=== PATIENT | male | born 1955 | race Caucasian/White ===

== ENCOUNTER 2018-06-08 09:05 | Inpatient (IN) | payer MEDICAID, SELFPAY ==
[2018-06-08] VITALS (11 sets, daily range): BP systolic 96–148; BP diastolic 43–84; PULSE 50–58; RESP 7–19; TEMP 36.4–36.6; O2SAT 94–100; BMI 37.5
--- NOTE | 2018-06-08 09:33 | DI.RAD.S_ITS ---
PROCEDURE: XR CHEST 1V INDICATIONS: chest pain TECHNIQUE: One view of the chest was acquired. COMPARISON: [facility], RG, XR CXR 2V, 01/09/2005, 7:47. [facility], CR, CHEST 1 VIEW, 02/27/2017, 14:52. FINDINGS: Surgical changes and devices: Post CABG changes are seen. Lungs and pleura: An incomplete inspiratory result is noted, causing a crowded appearance to the lung markings. No focal infiltrates are seen. No pneumothorax or significant pleural effusions are seen. Mediastinum: Mediastinal contours appear normal. Heart size is normal. Bones and chest wall: No suspicious bony lesions. Age-appropriate bony degenerative changes are seen. Splenic calcification is again seen. IMPRESSION: Limited portable chest examination, without a significant cardiopulmonary abnormality identified. Postoperative and degenerative changes are seen. Dictated by: Arthur Moreno M.D. on 06/08/2018 at 9:11 Approved by: Arthur Moreno M.D. on 06/08/2018 at 9:12
[2018-06-08 09:40] LABS: Add Manual Diff / Slide Review NO; Basophils Absolute Auto 100 /uL (0-100); Basophils Percent Auto 0.8 % (0-2); Eosinophils Absolute Auto 400 /uL (0-450); Hematocrit 53.2 % (41-53); Hemoglobin 17.8 g/dL (13.5-17.5); Lymphocytes Absolute Auto 4000 /uL (1100-4500); Lymphocytes Percent Auto 38.3 % (25-40); Mean Corpuscular HGB Conc 33.4 % (30-36); Mean Corpuscular Hemoglobin 29.3 PG (26-34); Mean Corpuscular Volume 87.7 fL (80-100); Monocytes Absolute Auto 1400 /uL (0-900); Monocytes Percent Auto 13.4 % (3-14); Neutrophils Absolute Auto 4600 /uL (1500-7000); Neutrophils Percent Auto 43.5 % (50-75); Platelet Count 154 X10^3/uL (150-400); Red Blood Cell Count 6.06 X10^6/uL (4.5-5.9); Red Cell Distribution Width 13.7 % (11.6-14.8); White Blood Cell Count 10.5 X10^3/uL (4.5-11.0)
--- NOTE | 2018-06-08 10:07 | ED_ITS ---
HPI - Chest Pain General Chief Complaint: Chest Pain Stated Complaint: SEVERE ABD PAIN Time Seen by Provider: 06/08/18 09:54 Source: patient Mode of arrival: ambulatory Limitations: no limitations History of Present Illness HPI narrative: This is a 62-year-old male who comes to the emergency department with complaint of epigastric pain. Patient states it started almost immediately after eating breakfast at 8:00 a.m.. He states he had a turkey sandwich and a Coke. About 5 min later he had pain in the epigastric region. He states that he is off a little bit but has been present the entire time. It does not radiate anywhere. He denies any pressure or pain in the chest more in the epigastric area. States rate is a little bit down into his belly. He states he has a history of reflux but this feels different. He also has a cardiac history with a CABG in 2003 but he states that this feels totally different than when he was having chest pain associated with his coronary artery disease. Patient denies any fevers, no chills. No shortness of breath. He is not having any nausea or vomiting currently. No diarrhea or constipation. Patient takes medication for hypertension, dyslipidemia, takes an aspirin 81 mg daily but did not have his dose today. He has not had any other surgeries besides his CABG. He denies any tobacco, alcohol or illicit drug use. Related Data Home Medications Medication Instructions Recorded Confirmed aspirin 81 mg PO DAILY #0 09/22/03 06/08/18 atorvastatin 80 mg PO BEDTIME #0 02/27/17 06/08/18 metoprolol succinate [Toprol XL] 100 mg PO DAILY #0 02/27/17 06/08/18 cholecalciferol (vitamin D3) 1,000 unit PO DAILY 06/08/18 06/08/18 [Vitamin D3] furosemide 10 mg PO DAILY 06/08/18 06/08/18 lisinopril 40 mg PO DAILY 06/08/18 06/08/18 potassium chloride 10 meq PO DAILY 06/08/18 06/08/18 Allergies Allergy/AdvReac Type Severity Reaction Status Date / Time codeine [CODEINE] Allergy Unknown Verified 06/08/18 10:12 Review of Systems Review of Systems ROS Unobtainable: All systems reviewed & are unremarkable except as noted in HPI and below Constitutional Denies chills, Denies excessive sweating, Denies fatigue, Denies fever(s), Denies lethargy and Denies weakness Cardiovascular Denies chest pain, Denies chest pain with activity, Denies diaphoresis, Denies syncope, Denies rapid heart rate, Denies edema, Denies irregular heart rhythm, Denies lightheadedness, Denies palpitations, Denies dyspnea, Denies dyspnea on exertion and Denies orthopnea Respiratory Denies change in phlegm color, Denies chest congestion, Denies cough, Denies dyspnea, Denies dyspnea on exertion and Denies wheezing Gastrointestinal Gastrointestinal: Denies abdominal pain, Denies melena, Denies hematochezia, Denies change in bowel habits, Denies diarrhea, Denies nausea and Denies vomiting Genitourinary Denies hematuria, Denies flank pain, Denies urinary frequency and Denies urinary urgency Musculoskeletal Denies back pain Neurologic Denies syncope and Denies weakness Endocrine Denies excessive sweating, Denies fatigue and Denies palpitations Allergic/Immunologic Denies wheezing PFSH Medical History Dyslipidemia (Acute) Hypertension (Acute) Surgical History S/P CABG x 3 (Acute) Social History Smoking Status: Unknown if ever smoked substance use type: does not use Exam Narrative Exam Narrative: GENERAL: Alert and oriented x three, obese, well-appearing male in mild distress. HEENT: Head normocephalic, atraumatic, EOMI, pupils reactive, face symmetric, moist mucous membranes NECK: Supple, full range of motion CARDIOVASCULAR: Regular rate and rhythm without murmurs, rubs or gallops. RESPIRATORY: Breath sounds equal bilaterally, no wheezes rales or rhonchi. ABDOMEN: Soft, nontender. Normoactive bowel sounds all 4 quadrants. No guarding or rebound, rigidity, no mass : No CVA tenderness EXTREMITIES: Normal range of motion, no clubbing or edema. Neurovascularly intact NEUROLOGICAL: Cranial nerves II through XII grossly intact. Moving all extremities SKIN: Warm, dry, no petechiae, no rashes or lesions. Initial Vital Signs Initial Vital Signs: Vital Signs Temperature 97.7 F 06/08/18 09:14 Pulse Rate 56 L 06/08/18 09:14 Respiratory Rate 16 06/08/18 09:14 Blood Pressure 148/68 H 06/08/18 09:14 Pulse Oximetry 100 06/08/18 09:14 Course Orders Ordered: ED Orders 06/08/18 09:25 Complete Blood Count AUTO DIFF Stat 06/08/18 09:33 XR chest 1V Stat EKG-12 Lead Stat 06/08/18 09:55 Comprehensive Metabolic Panel Stat Lipase Stat Partial Thromboplastin Time Stat Prothrombin Time INR Stat Troponin & CK Cardiac Panel Stat 06/08/18 10:35 US abdomen complete Stat 06/08/18 13:08 Ethanol (ETOH) Stat Lipid Panel Stat Discontinued Medications Aspirin (Aspirin Chew) 324 mg PO NOW ONE Stop: 06/08/18 10:02 Last Admin: 06/08/18 10:13 Dose: 324 mg Al Hydrox/Mg Hydrox/Simethicone 20 ml/ Lidocaine HCl 15 ml 0 ml PO NOW ONE Stop: 06/08/18 10:02 Last Admin: 06/08/18 10:14 Dose: 35 ml Sodium Chloride (Normal Saline 0.9%) 1,000 mls @ 1,000 mls/hr IV BOLUS ONE Stop: 06/08/18 12:27 Last Admin: 06/08/18 11:33 Dose: 1,000 mls/hr Morphine Sulfate (Morphine) 4 mg IV NOW ONE Stop: 06/08/18 10:41 Last Admin: 06/08/18 10:47 Dose: 4 mg Pantoprazole Sodium (Protonix) 40 mg IV NOW ONE Stop: 06/08/18 10:02 Last Admin: 06/08/18 10:15 Dose: 40 mg Vital Signs - 8 hr 06/08/18 09:14 06/08/18 09:30 06/08/18 10:30 Temperature 97.7 F Pulse Rate 56 L 50 L 58 L Respiratory Rate 16 18 7 L Blood Pressure 148/68 H Blood Pressure [Left Arm] 127/46 L 115/84 Pulse Oximetry 100 97 100 06/08/18 11:00 06/08/18 11:30 06/08/18 12:00 Temperature Pulse Rate 56 L 57 L 56 L Respiratory Rate 17 17 16 Blood Pressure Blood Pressure [Left Arm] 96/49 L 99/51 L 113/47 L Pulse Oximetry 96 97 96 06/08/18 12:30 Temperature Pulse Rate 52 L Respiratory Rate Blood Pressure Blood Pressure [Left Arm] 112/43 L Pulse Oximetry 97 MDM - Chest Pain Lab Data Attestation: I reviewed the patient's lab results. Result diagrams: 06/08/18 09:25 06/08/18 09:55 Lab Results 06/08/18 06/08/18 06/08/18 Range/Units 09:25 09:55 09:55 WBC 10.5 (4.5-11.0) X10^3/uL RBC 6.06 H (4.5-5.9) X10^6/uL Hgb 17.8 H (13.5-17.5) g/dL Hct 53.2 H (41-53) % MCV 87.7 (80-100) fL MCH 29.3 (26-34) PG MCHC 33.4 (30-36) % RDW 13.7 (11.6-14.8) % Plt Count 154 (150-400) X10^3/uL Neut % (Auto) 43.5 L (50-75) % Lymph % (Auto) 38.3 (25-40) % [place] % (Auto) 13.4 (3-14) % Eos % (Auto) 4.0 (2-4) % Baso % (Auto) 0.8 (0-2) % Neut # (Auto) 4600 (4626-9592) /uL Lymph # (Auto) 4000 (2149-4492) /uL [place] # (Auto) 1400 H (0-900) /uL Eos # (Auto) 400 (0-450) /uL Baso # (Auto) 100 (0-100) /uL PT 11.5 (10.1-12.7) SECONDS INR 1.0 (0.9-1.3) APTT 28 (26.4-36.2) SECONDS Sodium 139 (137-145) mmol/L Potassium 4.5 (3.4-5.1) mmol/L Chloride 102 (98-107) mmol/L Carbon Dioxide 26 (22-32) mmol/L BUN 17 (9-20) mg/dL Creatinine 1.10 (0.66-1.25) mg/dL Estimated GFR > 60.0 (>60) mL/min BUN/Creatinine Ratio 15.5 (6-22) Glucose 140 H (80-110) mg/dL Calcium 9.2 (8.4-10.2) mg/dL Total Bilirubin 1.3 (0.2-1.3) mg/dL AST 51 (17-59) IU/L ALT 64 (21-72) IU/L Alkaline Phosphatase 63 (38-126) U/L Total Creatine Kinase 113 (55-170) U/L CK-MB (CK-2) 3.03 H (<2.37) ng/mL CK-MB (CK-2) Rel Index 2.7 (1.5-5.0) % Troponin I < 0.012 (0.01-0.034) ng/mL Total Protein 7.5 (6.3-8.2) g/dL Albumin 4.4 (3.5-5.0) g/dL Globulin 3.1 (1.7-4.1) g/dL Albumin/Globulin Ratio 1.4 (1.0-2.8) Lipase 931 H (23-300) U/L Imaging Data Chest x-ray: Radiologist's impression: PROCEDURE: XR CHEST 1V INDICATIONS: chest pain TECHNIQUE: One view of the chest was acquired. COMPARISON: [facility], RG, XR CXR 2V, 01/09/2005, 7:47. [facility], CR, CHEST 1 VIEW, 02/27/2017, 14:52. FINDINGS: Surgical changes and devices: Post CABG changes are seen. Lungs and pleura: An incomplete inspiratory result is noted, causing a crowded appearance to the lung markings. No focal infiltrates are seen. No pneumothorax or significant pleural effusions are seen. Mediastinum: Mediastinal contours appear normal. Heart size is normal. Bones and chest wall: No suspicious bony lesions. Age-appropriate bony degenerative changes are seen. Splenic calcification is again seen. IMPRESSION: Limited portable chest examination, without a significant cardiopulmonary abnormality identified. Postoperative and degenerative changes are seen. Dictated by: Arthur Moreno M.D. on 06/08/2018 at 9:11 Approved by: Arthur Moreno M.D. on 06/08/2018 at 9:12 US - abdomen: Radiologist's impression: [address] [address] Ultrasound Report Signed Patient: Lincoln Lawson MR#: [id number] : 1955 Acct:[id number] Age/Sex: 62 / M Date of Service: 06/08/18 Loc: ED Accession Number: [id number] Procedure: US abdomen complete Ordering Provider: Alexandra Banda D.O. PROCEDURE: US ABDOMEN COMPLETE INDICATIONS: EPIGASTRIC PAIN; ELEVATED LIPASE TECHNIQUE: Real-time scanning was performed of the abdominal and retroperitoneal organs, with image documentation. COMPARISON: None. FINDINGS: Liver: Liver is mildly enlarged in size at 18.5 cm craniocaudad and homogeneous in echotexture, with increased echotexture consistent with generalized fatty infiltration. Gallbladder: Is not well-visualized but appears normal with maximal gallbladder wall thickness at the upper limits of normal at 3.3 mm. Biliary ducts: Intrahepatic bile ducts are non-dilated. Extrahepatic bile duct caliber measures 6.4 mm. Normal is 6-7 mm or less in diameter, or 10 mm or less post-cholecystectomy. Pancreas: Not seen due to overlying bowel gas and overlying hyperechoic liver echotexture Spleen: Spleen is normal in size and homogeneous in echotexture. Kidneys: Kidneys are normal in size and echotexture. Right kidney measures 12.2 cm long; left kidney measures 10.6 cm long. No hydronephrosis or nephrolithiasis. No solid masses. Aorta: Visualized aorta is normal in caliber at less than 3 cm. Iliacs: Proximal common iliac arteries are normal in caliber at less than 2.5 cm. IVC: Not seen due bowel gas and hepatic hyperechoic echotexture Miscellaneous: No free abdominal fluid. IMPRESSION: Prominent fatty infiltration throughout the liver, mild hepatomegaly but the spleen is not enlarged in size nor is there ascites or evidence of varices. The gallbladder wall thickness is at the upper limits of normal. The pancreas could not be seen. Depending on clinical status followup by CT scanning may be warranted if improved visualization through the abdomen and pelvis is necessary. Dictated by: Ayo Shafer M.D. on 06/08/2018 at 11:12 Approved by: Ayo Shafer M.D. on 06/08/2018 at 11:14 ECG Data Attestation: I personally reviewed and interpreted this ECG as follows: Interpretation: Sinus bradycardia with a rate of 52 P are interval of 167 [place] 98 and QTC of 415. No ST elevation or depression. Patient has a prior EKG similar to today's from 02/27/2017 MDM Narrative Medical decision making narrative: Patient's lipase is elevated ultrasound does not show any dilation of common bile duct for signs of choledocholithiasis. Pancreas was not clearly visualized but the rest or and show a little bit of fatty infiltrated liver but no other major changes. AST, ALT and alk-phos, T bili are all normal range. Patient has a little bit of elevated hemoglobin. No white count. Pain was improved with 1 dose of morphine. Spoke with the hospitalist, Dr. Ananya Aggarwal and she accepts for observation. We did add lipid panel and etoh level at her request. Discharge Plan Departure Patient Disposition: Admitted as Observation Clinical Impression: Acute pancreatitis Admit Date/Time: 06/08/18 13:09 Admit Provider: Ananya Aggarwal
[2018-06-08 10:12] LABS: Prothrombin Time 11.5 SECONDS (10.1-12.7)
[2018-06-08] MEDS: ASPIRIN 81 MG TAB 324 MG PO (10:13)
[2018-06-08] MEDS: MAG HYDROX/ALUMINUM/SIMETH SUS 20 ML, LIDOCAINE VISCOUS 2% 15 ML PO (10:14)
[2018-06-08 10:15] LABS: PTT Partial Thromboplastin Tim 28 SECONDS (26.4-36.2)
[2018-06-08] MEDS: PANTOPRAZOLE 40 MG VIAL IV (10:15)
[2018-06-08 10:18] LABS: Alanine Aminotransferase 64 IU/L (21-72); Albumin 4.4 g/dL (3.5-5.0); Albumin Globulin Ratio 1.4 (1.0-2.8); Alkaline Phosphatase 63 U/L (38-126); BUN Creatinine Ratio 15.5 (6-22); Bilirubin Total 1.3 mg/dL (0.2-1.3); Blood Urea Nitrogen 17 mg/dL (9-20); Calcium 9.2 mg/dL (8.4-10.2); Carbon Dioxide 26 mmol/L (22-32); Chloride 102 mmol/L (98-107); Creatine Kinase 113 U/L (55-170); Estimated Glomerular Filt Rate > 60.0 mL/min (>60); Globulin 3.1 g/dL (1.7-4.1); Glucose 140 mg/dL (80-110); Lipase 931 U/L (23-300); Sodium 139 mmol/L (137-145); Total Protein 7.5 g/dL (6.3-8.2)
[2018-06-08 10:26] LABS: Aspartate Aminotransferase 51 IU/L (17-59); Potassium 4.5 mmol/L (3.4-5.1)
[2018-06-08 10:31] LABS: Troponin I < 0.012 ng/mL (0.01-0.034)
[2018-06-08 10:33] LABS: CKMB % Relative Index 2.7 % (1.5-5.0); Creatine Kinase MB 3.03 ng/mL (<2.37)
[2018-06-08 10:34] LABS: HEMOLYSIS 76 (0-50)
--- NOTE | 2018-06-08 10:35 | DI.US.S_ITS ---
PROCEDURE: US ABDOMEN COMPLETE INDICATIONS: EPIGASTRIC PAIN; ELEVATED LIPASE TECHNIQUE: Real-time scanning was performed of the abdominal and retroperitoneal organs, with image documentation. COMPARISON: None. FINDINGS: Liver: Liver is mildly enlarged in size at 18.5 cm craniocaudad and homogeneous in echotexture, with increased echotexture consistent with generalized fatty infiltration. Gallbladder: Is not well-visualized but appears normal with maximal gallbladder wall thickness at the upper limits of normal at 3.3 mm. Biliary ducts: Intrahepatic bile ducts are non-dilated. Extrahepatic bile duct caliber measures 6.4 mm. Normal is 6-7 mm or less in diameter, or 10 mm or less post-cholecystectomy. Pancreas: Not seen due to overlying bowel gas and overlying hyperechoic liver echotexture Spleen: Spleen is normal in size and homogeneous in echotexture. Kidneys: Kidneys are normal in size and echotexture. Right kidney measures 12.2 cm long; left kidney measures 10.6 cm long. No hydronephrosis or nephrolithiasis. No solid masses. Aorta: Visualized aorta is normal in caliber at less than 3 cm. Iliacs: Proximal common iliac arteries are normal in caliber at less than 2.5 cm. IVC: Not seen due bowel gas and hepatic hyperechoic echotexture Miscellaneous: No free abdominal fluid. IMPRESSION: Prominent fatty infiltration throughout the liver, mild hepatomegaly but the spleen is not enlarged in size nor is there ascites or evidence of varices. The gallbladder wall thickness is at the upper limits of normal. The pancreas could not be seen. Depending on clinical status followup by CT scanning may be warranted if improved visualization through the abdomen and pelvis is necessary. Dictated by: Ayo Shafer M.D. on 06/08/2018 at 11:12 Approved by: Ayo Shafer M.D. on 06/08/2018 at 11:14
[2018-06-08] MEDS: MORPHINE 4 MG/ML INJ IV (10:47)
[2018-06-08] MEDS: SODIUM CHLORIDE 0.9% 1,000 ML 1000 ML IV (11:33)
[2018-06-08 13:32] LABS: Cholesterol 182 mg/dL (140-199); Ethanol (ETOH) < 10 mg/dL; HDL Cholesterol 29 mg/dL (40-60); LDL Cholesterol Calculated 76 mg/dL (<100); Triglycerides 384 mg/dL (35-150)
--- NOTE | 2018-06-08 14:18 | PC.ADMIT ---
Admission Note: Patient arrived to room 101 via wheelchair from ER at 1350. Alert and oriented x3. Denies any pain but reported that he originally had pain to upper abdomen that is now resolved after receiving morphine in ER. NPO diet. HR in the low 50s which is baseline per patient. Oxygen sats 97% on RA. Ambulated from wheelchair to bed and is stable on feet - uses no assistive devices. Oriented to room and to call light/bed/tv controls. Clothing, cell phone, glasses, and wallet in room - declines to lock up valuables in safe. Call light within reach. The patient,Lincoln Lawson,62 y/o, was given written information regarding hospital policies, unit procedures and contact persons. Patient's smoking status: Never smoker. Vital Signs - 8 hr 06/08/18 09:14 06/08/18 09:30 06/08/18 10:30 Temperature 97.7 F Pulse Rate 56 L 50 L 58 L Respiratory Rate 16 18 7 L Blood Pressure 148/68 H Blood Pressure [Left Arm] 127/46 L 115/84 Pulse Oximetry 100 97 100 06/08/18 11:00 06/08/18 11:30 06/08/18 12:00 Temperature Pulse Rate 56 L 57 L 56 L Respiratory Rate 17 17 16 Blood Pressure Blood Pressure [Left Arm] 96/49 L 99/51 L 113/47 L Pulse Oximetry 96 97 96 06/08/18 12:30 06/08/18 13:00 06/08/18 14:10 Temperature 97.8 F Pulse Rate 52 L 56 L 53 L Respiratory Rate 17 18 Blood Pressure 132/63 Blood Pressure [Left Arm] 112/43 L 97/45 L Pulse Oximetry 97 98 98
[2018-06-08] MEDS: SODIUM CHLORIDE 0.9% 1,000 ML 100 ML IV (14:55)
--- NOTE | 2018-06-08 18:43 | P.HP_ITS ---
History of Present Illness Date Patient Seen: 06/08/18 Chief complaint: SEVERE ABD PAIN Narrative: Lincoln Lawson is a 62-year-old male with a past medical history significant for CAD status post CABG x3 vessels, hypertension, and hyperlipidemia who presented for abrupt onset severe epigastric abdominal pain. The patient reports that he finished his breakfast and began having epigastric abdominal pain. He has never had pain like this before. He describes the pain as sharp and achy in quality. He rates it a +8/10 in severity at its worst. The pain radiates to his lower abdomen. He denies any associated headache, chest pain, shortness of breath, nausea, vomiting, fever, or chills. He has no diarrhea or constipation. He has had no dysuria. He has no other symptoms. He still has his gallbladder. He has no history of gallstones. He does not consume alcohol. He has never been a smoker. Lipase elevated at 931. Triglycerides elevated at 384. Troponin negative. Abdominal ultrasound did not demonstrate any biliary dilatation with gallbladder wall thickness upper limits of normal. He is seen by an SH[facility] CEMENTER HAND at [facility]. Patient History Medical History Dyslipidemia (Acute) GERD (gastroesophageal reflux disease) (Acute) Hypertension (Acute) Prediabetes (Acute) Surgical History S/P CABG x 3 (Acute) Family & Social History Social History: household members other Prior Living Arrangements House The patient has never been and has no children. He lives at home with his 2 brothers. He does not consume alcohol, has never been a smoker, and does not use illicit drugs. Safety & Behavioral: Feels Safe in Current Yes Environment Been Physically Hurt or No Threatened By a Person Suicidal Ideation Description None Suicide Plan Description No Plan Tobacco & Substance use: Smoking Status Never smoker alcohol intake never Substance Use Type does not use Meds Home Medications Medication Instructions Recorded Confirmed Type aspirin 81 mg PO DAILY #0 09/22/03 06/08/18 History atorvastatin 80 mg PO BEDTIME #0 02/27/17 06/08/18 History metoprolol succinate [Toprol XL] 100 mg PO DAILY #0 02/27/17 06/08/18 History cholecalciferol (vitamin D3) 1,000 unit PO DAILY 06/08/18 06/08/18 History [Vitamin D3] furosemide 10 mg PO DAILY 06/08/18 06/08/18 History lisinopril 40 mg PO DAILY 06/08/18 06/08/18 History potassium chloride 10 meq PO DAILY 06/08/18 06/08/18 History Allergies Allergy/AdvReac Type Severity Reaction Status Date / Time codeine [CODEINE] Allergy Unknown Verified 06/08/18 10:12 Review of Systems Review of Systems A 10 system comprehensive review of systems was conducted with the patient and found to be negative except as above in the History of Present Illness. Exam Vital Signs (past 8 hours): - 06/08/18 11:00 06/08/18 11:30 06/08/18 12:00 Temperature Pulse Rate 56 L 57 L 56 L Respiratory Rate 17 17 16 Blood Pressure Blood Pressure [Left Arm] 96/49 L 99/51 L 113/47 L Pulse Oximetry 96 97 96 06/08/18 12:30 06/08/18 13:00 06/08/18 14:10 Temperature 97.8 F Pulse Rate 52 L 56 L 53 L Respiratory Rate 17 18 Blood Pressure 132/63 Blood Pressure [Left Arm] 112/43 L 97/45 L Pulse Oximetry 97 98 98 06/08/18 15:31 Temperature 97.6 F Pulse Rate 54 L Respiratory Rate 19 Blood Pressure 130/67 Blood Pressure [Left Arm] Pulse Oximetry 94 Oxygen Delivery Method Room Air Narrative Exam Narrative: General: Middle-aged gentleman lying in bed and in no acute distress, well- developed, well-nourished, appropriately interactive. HEENT: Normocephalic, atraumatic. External ears without defect. Pupils equal, round, and reactive to light. Anicteric sclerae, moist conjunctivae, and no lid lag. Oropharynx free of erythema and cobble stoning with moist mucosa. Neck: Supple with full range of motion. No lymphadenopathy or thyromegaly. Cardiovascular: Regular rhythm, bradycardic, without murmurs, rubs, or gallops appreciated Pulmonary: Clear to auscultation bilaterally without crackles, wheezes, or rhonchi. Normal respiratory effort with no use of accessory muscles. Abdomen: Soft, bowel sounds present, nontender, nondistended. No hepatosplenomegaly or masses appreciated. Extremities: No clubbing, cyanosis, or edema. Skin: Normal temperature, turgor, and texture; no rash, ulcers, or subcutaneous nodules appreciated. Neurological: Cranial nerves grossly intact. Normal muscle strength, tone, and bulk. Reflexes, coordination, and sensory function within normal limits. No known gait impairment. Psychiatric: Normal mood and affect. Alert and oriented to person, place, and time. Objective Labs Result Diagrams: 06/08/18 09:25 06/08/18 09:55 Labs: Laboratory Results - last 24 hr 06/08/18 06/08/18 06/08/18 09:25 09:55 09:55 WBC 10.5 RBC 6.06 H Hgb 17.8 H Hct 53.2 H MCV 87.7 MCH 29.3 MCHC 33.4 RDW 13.7 Plt Count 154 Neut % (Auto) 43.5 L Lymph % (Auto) 38.3 [place] % (Auto) 13.4 Eos % (Auto) 4.0 Baso % (Auto) 0.8 Neut # (Auto) 4600 Lymph # (Auto) 4000 [place] # (Auto) 1400 H Eos # (Auto) 400 Baso # (Auto) 100 PT 11.5 INR 1.0 APTT 28 Sodium 139 Potassium 4.5 Chloride 102 Carbon Dioxide 26 BUN 17 Creatinine 1.10 Estimated GFR > 60.0 BUN/Creatinine Ratio 15.5 Glucose 140 H Calcium 9.2 Total Bilirubin 1.3 AST 51 ALT 64 Alkaline Phosphatase 63 Total Creatine Kinase 113 CK-MB (CK-2) 3.03 H CK-MB (CK-2) Rel Index 2.7 Troponin I < 0.012 Total Protein 7.5 Albumin 4.4 Globulin 3.1 Albumin/Globulin Ratio 1.4 Triglycerides 384 H Cholesterol 182 LDL Cholesterol, Calc 76 HDL Cholesterol 29 L Lipase 931 H Nasal Screen MRSA (PCR) Ethyl Alcohol < 10 06/08/18 14:07 WBC RBC Hgb Hct MCV MCH MCHC RDW Plt Count Neut % (Auto) Lymph % (Auto) [place] % (Auto) Eos % (Auto) Baso % (Auto) Neut # (Auto) Lymph # (Auto) [place] # (Auto) Eos # (Auto) Baso # (Auto) PT INR APTT Sodium Potassium Chloride Carbon Dioxide BUN Creatinine Estimated GFR BUN/Creatinine Ratio Glucose Calcium Total Bilirubin AST ALT Alkaline Phosphatase Total Creatine Kinase CK-MB (CK-2) CK-MB (CK-2) Rel Index Troponin I Total Protein Albumin Globulin Albumin/Globulin Ratio Triglycerides Cholesterol LDL Cholesterol, Calc HDL Cholesterol Lipase Nasal Screen MRSA (PCR) Negative for mrsa Ethyl Alcohol Assessment & Plan Plan: Assessment/Plan Narrative: Lincoln Lawson is a 62-year-old male with a past medical history significant for CAD status post CABG x3 vessels, hypertension, and hyperlipidemia who presented for abrupt onset severe epigastric abdominal pain. 1. Acute pancreatitis, present on admission. Active. -Patient presented with abrupt onset epigastric abdominal pain without any associated symptoms. -Unclear etiology. No history of gallstones. No alcohol or tobacco. Triglycerides mildly elevated at 384. -Abdominal ultrasound did not demonstrate any biliary dilatation. Low threshold for CT abdomen and pelvis with contrast if patient's condition worsens. -Lipase elevated at 931. -Troponin negative. EKG demonstrated normal sinus rhythm without acute ischemic changes. -Continue IV fluids with normal saline at 100 mL/hr. -Ordered morphine as needed for pain and Zofran as needed for nausea. -Patient is NPO except for sips and chips sparingly and for meds. Will plan to advance diet to clear liquid as tolerated tomorrow morning. 2. Coronary artery disease status post CABG x3, present on admission. Presumed stable. -No active signs of coronary artery disease. -Troponin negative. EKG demonstrated normal sinus rhythm without acute ischemic changes. -Continue cardiac medications including aspirin 81 mg daily, atorvastatin 80 mg at bedtime, lisinopril 40 mg daily, and metoprolol succinate 100 mg daily. Held furosemide and potassium chloride for now. 3. Hypertension, present on admission. Stable. -Continue cardiac meds as above. 4. Hyperlipidemia, present on admission. Stable. -Ccontinue statin as above. -Triglycerides mildly elevated at 384. 5. GERD, present on admission. Stable. -No longer medically treated. Patient takes as needed Tums or Maalox for indigestion. Patient is admitted under observation status with expected length of stay less than 2 midnights due to severity of presenting symptoms, risk of adverse event, and complexity of treatment plan. Quality VTE Deep Vein Thrombosis/Pulmonary Embolism Present on Admission: No
[2018-06-08] MEDS: HEPARIN 5,000 UNIT/ML VIAL 5000 UNIT SUBCUT (21:14)
[2018-06-08] MEDS: ATORVASTATIN 20 MG TABLET 80 MG PO (21:14)
[2018-06-09] VITALS: BP 111/60; PULSE 54; RESP 15; TEMP 36.4; O2SAT 96
[2018-06-09] MEDS: MORPHINE 2 MG/ML INJ IV (00:29)
[2018-06-09] MEDS: SODIUM CHLORIDE 0.9% 1,000 ML 100 ML IV (00:30)
[2018-06-09 04:00] VITALS: BP 114/55; PULSE 52; RESP 15; TEMP 36.3; O2SAT 98
[2018-06-09 05:23] LABS: Add Manual Diff / Slide Review NO; Basophils Absolute Auto 0 /uL (0-100); Basophils Percent Auto 0.2 % (0-2); Eosinophils Absolute Auto 200 /uL (0-450); Eosinophils Percent Auto 2.5 % (2-4); Hemoglobin 16.1 g/dL (13.5-17.5); Lymphocytes Absolute Auto 3700 /uL (1100-4500); Lymphocytes Percent Auto 37.7 % (25-40); Mean Corpuscular HGB Conc 33.5 % (30-36); Mean Corpuscular Hemoglobin 29.4 PG (26-34); Mean Corpuscular Volume 87.7 fL (80-100); Monocytes Absolute Auto 900 /uL (0-900); Monocytes Percent Auto 8.9 % (3-14); Neutrophils Absolute Auto 4900 /uL (1500-7000); Neutrophils Percent Auto 50.7 % (50-75); Platelet Count 127 X10^3/uL (150-400); Red Blood Cell Count 5.47 X10^6/uL (4.5-5.9); Red Cell Distribution Width 13.4 % (11.6-14.8); White Blood Cell Count 9.7 X10^3/uL (4.5-11.0)
[2018-06-09 05:24] LABS: Alanine Aminotransferase 58 IU/L (21-72); Albumin 3.8 g/dL (3.5-5.0); Albumin Globulin Ratio 1.4 (1.0-2.8); Alkaline Phosphatase 55 U/L (38-126); Aspartate Aminotransferase 37 IU/L (17-59); Bilirubin Total 1.3 mg/dL (0.2-1.3); Blood Urea Nitrogen 14 mg/dL (9-20); Calcium 8.5 mg/dL (8.4-10.2); Carbon Dioxide 27 mmol/L (22-32); Chloride 104 mmol/L (98-107); Estimated Glomerular Filt Rate > 60.0 mL/min (>60); Globulin 2.8 g/dL (1.7-4.1); Glucose 98 mg/dL (80-110); HEMOLYSIS < 15 (0-50); Lipase 107 U/L (23-300); Potassium 4.3 mmol/L (3.4-5.1); Sodium 139 mmol/L (137-145); Total Protein 6.6 g/dL (6.3-8.2)
--- NOTE | 2018-06-09 06:45 | PM.PN.1 ---
Subjective Date Patient Seen: 06/09/18 Interval history: Overnight: The patient was stable never no acute events. He complained of headache which was alleviated with as needed pain medication. Today the patient is resting in bed comfortably and in no acute distress. He endorsed headache overnight which is now resolved. He denies headache, chest pain, shortness of breath, abdominal pain, nausea, vomiting, fever, chills, dysuria, diarrhea constipation. He has a good appetite and is eager to eat for which we are advancing his diet to clear liquid diet this morning. If tolerated will likely advance to soft diet this afternoon. He is ambulating without assistance. Exam Vital Signs (past 8 hours): - 06/09/18 00:00 06/09/18 04:00 Temperature 97.6 F 97.4 F L Pulse Rate 54 L 52 L Respiratory Rate 15 15 Blood Pressure 111/60 114/55 L Pulse Oximetry 96 98 Oxygen Delivery Method Room Air Narrative Exam Narrative: General: Middle-aged gentleman lying in bed and in no acute distress, well-developed, well-nourished, appropriately interactive. HEENT: Normocephalic, atraumatic. External ears without defect. Pupils equal, round, and reactive to light. Anicteric sclerae, moist conjunctivae, and no lid lag. Neck: Supple with full range of motion. No lymphadenopathy or thyromegaly. Cardiovascular: Regular rhythm and rate without murmurs, rubs, or gallops appreciated Pulmonary: Clear to auscultation bilaterally without crackles, wheezes, or rhonchi. Normal respiratory effort with no use of accessory muscles. Abdomen: Soft, obese, bowel sounds present, nontender, nondistended. No hepatosplenomegaly or masses appreciated. Extremities: No clubbing, cyanosis, or edema. Skin: Normal temperature, turgor, and texture; no rash, ulcers, or subcutaneous nodules appreciated. Neurological: Cranial nerves grossly intact. Psychiatric: Normal mood and affect. Alert and oriented to person, place, and time. Objective Labs Result Diagrams: 06/09/18 05:00 06/09/18 05:00 Labs: Laboratory Results - last 24 hr 06/08/18 06/08/18 06/08/18 09:25 09:55 09:55 WBC 10.5 RBC 6.06 H Hgb 17.8 H Hct 53.2 H MCV 87.7 MCH 29.3 MCHC 33.4 RDW 13.7 Plt Count 154 Neut % (Auto) 43.5 L Lymph % (Auto) 38.3 [place] % (Auto) 13.4 Eos % (Auto) 4.0 Baso % (Auto) 0.8 Neut # (Auto) 4600 Lymph # (Auto) 4000 [place] # (Auto) 1400 H Eos # (Auto) 400 Baso # (Auto) 100 PT 11.5 INR 1.0 APTT 28 Sodium 139 Potassium 4.5 Chloride 102 Carbon Dioxide 26 BUN 17 Creatinine 1.10 Estimated GFR > 60.0 BUN/Creatinine Ratio 15.5 Glucose 140 H Calcium 9.2 Total Bilirubin 1.3 AST 51 ALT 64 Alkaline Phosphatase 63 Total Creatine Kinase 113 CK-MB (CK-2) 3.03 H CK-MB (CK-2) Rel Index 2.7 Troponin I < 0.012 Total Protein 7.5 Albumin 4.4 Globulin 3.1 Albumin/Globulin Ratio 1.4 Triglycerides 384 H Cholesterol 182 LDL Cholesterol, Calc 76 HDL Cholesterol 29 L Lipase 931 H Nasal Screen MRSA (PCR) Ethyl Alcohol < 10 06/08/18 06/09/18 06/09/18 14:07 05:00 05:00 WBC 9.7 RBC 5.47 Hgb 16.1 Hct 48.0 MCV 87.7 MCH 29.4 MCHC 33.5 RDW 13.4 Plt Count 127 L Neut % (Auto) 50.7 Lymph % (Auto) 37.7 [place] % (Auto) 8.9 Eos % (Auto) 2.5 Baso % (Auto) 0.2 Neut # (Auto) 4900 Lymph # (Auto) 3700 [place] # (Auto) 900 Eos # (Auto) 200 Baso # (Auto) 0 PT INR APTT Sodium 139 Potassium 4.3 Chloride 104 Carbon Dioxide 27 BUN 14 Creatinine 1.00 Estimated GFR > 60.0 BUN/Creatinine Ratio 14.0 Glucose 98 Calcium 8.5 Total Bilirubin 1.3 AST 37 ALT 58 Alkaline Phosphatase 55 Total Creatine Kinase CK-MB (CK-2) CK-MB (CK-2) Rel Index Troponin I Total Protein 6.6 Albumin 3.8 Globulin 2.8 Albumin/Globulin Ratio 1.4 Triglycerides Cholesterol LDL Cholesterol, Calc HDL Cholesterol Lipase 107 D Nasal Screen MRSA (PCR) Negative for mrsa Ethyl Alcohol Assessment & Plan Plan: Assessment/Plan Narrative: Lincoln Lawson is a 62-year-old male with a past medical history significant for CAD status post CABG x3 vessels, hypertension, and hyperlipidemia who presented for abrupt onset severe epigastric abdominal pain. 1. Acute pancreatitis, present on admission. Active. -Patient presented with abrupt onset epigastric abdominal pain without any associated symptoms. -Unclear etiology. No history of gallstones. No alcohol or tobacco. Triglycerides mildly elevated at 384. -Abdominal ultrasound did not demonstrate any biliary dilatation with pancreas not visualized. Low threshold for CT abdomen and pelvis with contrast if patient's condition worsens. -Lipase elevated at 931. Trended down to 107 this morning. -Troponin negative. EKG demonstrated normal sinus rhythm without acute ischemic changes. -Discontinued IV fluids with normal saline at 100 mL/hr. -Ordered morphine as needed for pain and Zofran as needed for nausea. Start clear liquid diet and advance to soft diet as tolerated. 2. Coronary artery disease status post CABG x3, present on admission. Presumed stable. -No active signs of coronary artery disease. -Troponin negative. EKG demonstrated normal sinus rhythm without acute ischemic changes. -Continue cardiac medications including aspirin 81 mg daily, atorvastatin 80 mg at bedtime, lisinopril 40 mg daily, and metoprolol succinate 100 mg daily. Held furosemide and potassium chloride for now. 3. Hypertension, present on admission. Stable. -Continue cardiac meds as above. 4. Hyperlipidemia, present on admission. Stable. -Ccontinue statin as above. -Triglycerides mildly elevated at 384. 5. GERD, present on admission. Stable. -No longer medically treated. Patient takes as needed Tums or Maalox for indigestion. Patient is admitted under observation status with expected length of stay less than 2 midnights due to severity of presenting symptoms, risk of adverse event, and complexity of treatment plan. Quality VTE Deep Vein Thrombosis/Pulmonary Embolism Present on Admission: No
[2018-06-09] MEDS: HEPARIN 5,000 UNIT/ML VIAL 5000 UNIT SUBCUT ×2 (07:01→14:20)
[2018-06-09] MEDS: PANTOPRAZOLE 20 MG TABLET PO (07:01)
[2018-06-09 08:30] VITALS: BP 131/78; PULSE 55; RESP 16; TEMP 36.9; O2SAT 97
--- NOTE | 2018-06-09 08:37 | CM.DANOTE ---
DCP: Case received, EMR reviewed and met with patient. Introduced self and role. DCP template completed with information currently available. Patient is a 62 year old male who admitted yesterday afternoon to the care of the hospitalist team. PCP: [facility]. Payer: Medicaid. Patient came to hospital via family vehicle with symptoms of abdominal pain. Patient carries diagnosis of Acute Pancreatitis. Met briefly with patient. Alert and oriented, pleasant. He is independent at home. He stated that he sees different providers at [facility]. He lives with 2 brothers. P: DCP to continue to follow. Patient could be discharged home today if stable. Indira Nguyễn RN/Chart Reader
[2018-06-09] MEDS: ASPIRIN EC 81 MG TABLET PO (08:46)
[2018-06-09] MEDS: LISINOPRIL 20 MG TABLET 40 MG PO (08:46)
[2018-06-09] MEDS: INFLUENZA VACCINE 0.5 ML SYRINGE IM (08:47)
[2018-06-09] MEDS: ONDANSETRON 4 MG/2 ML INJ IV (10:24)
[2018-06-09] MEDS: ACETAMINOPHEN 325 MG TABLET 650 MG PO (10:28)
[2018-06-09 12:04] VITALS: BP 110/67; PULSE 56; RESP 15; TEMP 36.8; O2SAT 97
[2018-06-09 16:00] VITALS: BP 138/78; PULSE 63; RESP 20; TEMP 36.5; O2SAT 98
--- NOTE | 2018-06-09 16:54 | PM.DS.1 ---
History of Present Illness Date Patient Seen: 06/09/18 Chief complaint: SEVERE ABD PAIN Narrative: Written by myself Dr. Aggarwal: Lincoln Lawson is a 62-year-old male with a past medical history significant for CAD status post CABG x3 vessels, hypertension, and hyperlipidemia who presented for abrupt onset severe epigastric abdominal pain. The patient reports that he finished his breakfast and began having epigastric abdominal pain. He has never had pain like this before. He describes the pain as sharp and achy in quality. He rates it a +8/10 in severity at its worst. The pain radiates to his lower abdomen. He denies any associated headache, chest pain, shortness of breath, nausea, vomiting, fever, or chills. He has no diarrhea or constipation. He has had no dysuria. He has no other symptoms. He still has his gallbladder. He has no history of gallstones. He does not consume alcohol. He has never been a smoker. Lipase elevated at 931. Triglycerides elevated at 384. Troponin negative. Abdominal ultrasound did not demonstrate any biliary dilatation with gallbladder wall thickness upper limits of normal. He is seen by an FOOD AND NUTRITION SERVICES SUPERVISOR at [facility]. Discharge Providers Date of admission: 06/08/18 13:09 Discharge provider: Ananya Aggarwal DO Discharge Date: 06/09/18 Summary Discharge Diagnosis: 1. Acute pancreatitis, present on admission. Resolved. 2. Coronary artery disease status post CABG x3, present on admission. Presumed stable. 3. Hypertension, present on admission. Stable. 4. Hyperlipidemia, present on admission. Stable. 5. GERD, present on admission. Stable. Hospital Course: Lincoln Lawson is a 62-year-old male with a past medical history significant for CAD status post CABG x3 vessels, hypertension, and hyperlipidemia who presented for abrupt onset severe epigastric abdominal pain. 1. Acute pancreatitis, present on admission. Resolved. -Patient presented with abrupt onset epigastric abdominal pain without any associated symptoms. -Unclear etiology. No history of gallstones. No alcohol or tobacco. Triglycerides mildly elevated at 384. -Abdominal ultrasound did not demonstrate any biliary dilatation with pancreas not visualized. Had a low threshold for CT abdomen and pelvis with contrast if patient's condition worsens. -Lipase initially elevated at 931. Trended down to 107. -Troponin negative. EKG demonstrated normal sinus rhythm without acute ischemic changes. -Discontinued IV fluids with normal saline at 100 mL/hr. -Ordered morphine as needed for pain and Zofran as needed for nausea. -Started clear liquid diet and advance to soft diet throughout the day in which he tolerated without any return of epigastric pain. Discharged with instructions to continue soft diet for several days and advance as tolerated. 2. Coronary artery disease status post CABG x3, present on admission. Presumed stable. -No active signs of coronary artery disease. -Troponin negative. EKG demonstrated normal sinus rhythm without acute ischemic changes. -Continued cardiac medications including aspirin 81 mg daily, atorvastatin 80 mg at bedtime, and lisinopril 40 mg daily. Held furosemide and potassium chloride until discharge. Discontinued metoprolol succinate 100 mg daily as the patient's heart rate was 50-60's and with sleeping down to as low as mid 40's. Recommended discussion of low-dose beta-femi that is less effective as an outpatient. 3. Hypertension, present on admission. Stable. -Continued cardiac meds as above. 4. Hyperlipidemia, present on admission. Stable. -Continued statin as above. -Triglycerides mildly elevated at 384. 5. GERD, present on admission. Stable. -No longer medically treated. Patient takes as needed Tums or Maalox for indigestion. Status at Discharge Functional status at discharge: independent ambulation Overall status at discharge: patient is back to baseline Exam Vital Signs (past 8 hours): - 06/09/18 12:04 06/09/18 16:00 Temperature 98.2 F 97.7 F Pulse Rate 56 L 63 Respiratory Rate 15 20 Blood Pressure 110/67 138/78 Pulse Oximetry 97 98 Oxygen Delivery Method Room Air Oxygen Flow Rate 0 Narrative Exam Narrative: General: Middle-aged gentleman lying in bed and in no acute distress, well-developed, well-nourished, appropriately interactive. HEENT: Normocephalic, atraumatic. External ears without defect. Pupils equal, round, and reactive to light. Anicteric sclerae, moist conjunctivae, and no lid lag. Neck: Supple with full range of motion. No lymphadenopathy or thyromegaly. Cardiovascular: Regular rhythm and rate without murmurs, rubs, or gallops appreciated Pulmonary: Clear to auscultation bilaterally without crackles, wheezes, or rhonchi. Normal respiratory effort with no use of accessory muscles. Abdomen: Soft, obese, bowel sounds present, nontender, nondistended. No hepatosplenomegaly or masses appreciated. Extremities: No clubbing, cyanosis, or edema. Skin: Normal temperature, turgor, and texture; no rash, ulcers, or subcutaneous nodules appreciated. Neurological: Cranial nerves grossly intact. Psychiatric: Normal mood and affect. Alert and oriented to person, place, and time. Objective Labs Result Diagrams: 06/09/18 05:00 06/09/18 05:00 Labs: Laboratory Results - last 24 hr 06/09/18 06/09/18 06/09/18 05:00 05:00 15:52 WBC 9.7 RBC 5.47 Hgb 16.1 Hct 48.0 MCV 87.7 MCH 29.4 MCHC 33.5 RDW 13.4 Plt Count 127 L Neut % (Auto) 50.7 Lymph % (Auto) 37.7 [place] % (Auto) 8.9 Eos % (Auto) 2.5 Baso % (Auto) 0.2 Neut # (Auto) 4900 Lymph # (Auto) 3700 [place] # (Auto) 900 Eos # (Auto) 200 Baso # (Auto) 0 Sodium 139 Potassium 4.3 Chloride 104 Carbon Dioxide 27 BUN 14 Creatinine 1.00 Estimated GFR > 60.0 BUN/Creatinine Ratio 14.0 Glucose 98 Hemoglobin A1c 6.0 Calcium 8.5 Total Bilirubin 1.3 AST 37 ALT 58 Alkaline Phosphatase 55 Total Protein 6.6 Albumin 3.8 Globulin 2.8 Albumin/Globulin Ratio 1.4 Lipase 107 D Discharge Plan Discharge Plan Patient Disposition: Home Discharge comment: You are being discharged home. Please follow up with your PCP in the next 1 week. Your metoprolol has been discontinued due to your low heart rate. You will likely need to be placed on a another beta-femi for your coronary artery disease as an outpatient. For the next several days please eat a soft and bland diet. Discharge Med Rec/Prescriptions Prescriptions: Continue aspirin 81 MG tablet,delayed release (DR/EC) 81 mg PO DAILY Qty: 0 RF: 0 atorvastatin 80 MG tablet 80 mg PO BEDTIME Qty: 0 RF: 0 potassium chloride 10 mEq tablet extended release 10 meq PO DAILY RF: 0 lisinopril 40 mg tablet 40 mg PO DAILY RF: 0 cholecalciferol (vitamin D3) 1,000 unit tablet 1,000 unit PO DAILY RF: 0 furosemide 20 mg Tablet 10 mg PO DAILY RF: 0 Discontinued metoprolol succinate [Toprol XL] 100 MG tablet extended release 24 hr 100 mg PO DAILY Qty: 0 RF: 0 Provider Discharge Instructions Diet: Diet as Tolerated and Full Liquid Diet comment: Soft and bland diet for the next several days, advance as tolerated Activity: Activity as tolerated Visit Report/Discharge Packet Instructions: Acute Pancreatitis, Soft Diet Visit Report Forms: Stroke Signs & Symptoms Discharge Data Attending Provider: Ananya Aggarwal Admit Date/Time: 06/08/18 13:09 Discharges patient from system. Discharge Date/Time: 06/09/18 17:30 Quality VTE Deep Vein Thrombosis/Pulmonary Embolism Present on Admission: No
== END 2018-06-09 17:30 | disposition home or self-care (01) | DRG 440 ==
LOC: ED 13:09 → ICU 14:23 → AC 06-09 11:21 → ICU 06-09 11:21
PROVIDERS: Admitting Provider Internal Medicine; Emergency Provider Emergency Medicine; Visit Provider Internal Medicine
DX: K85.90 Acute pancreatitis without necrosis or infection, unspecified (principal); I25.10 Atherosclerotic heart disease of native coronary artery without angina pectoris; Z95.1 Presence of aortocoronary bypass graft; I10 Essential (primary) hypertension; E78.5 Hyperlipidemia, unspecified
CPT/HCPCS: 36415; 71045; 76700; 80053; 80061; 80320; 82550; 82553; 83036; 83690; 84484; 85025; 85610; 85730; 87797; 90471; 90656; 93005; 93010; 96361; 96374; 96375; 99284; 99285; C9113; J1644; J2270; J2405; Q2038

== ENCOUNTER 2019-05-15 08:58 | Inpatient (IN) | payer MEDICAID, SELFPAY ==
[2018-06-08 14:11] VITALS: BMI 37.5
[2019-05-15] VITALS (12 sets, daily range): BP systolic 103–183; BP diastolic 45–71; PULSE 52–66; RESP 12–20; TEMP 36.2–37.1; O2SAT 95–100; BMI 37.2; BMI 36.8
--- NOTE | 2019-05-15 09:16 | ED_ITS ---
HPI - Abdominal Pain General Chief Complaint: Abdominal Pain Stated Complaint: ACUTE PANCREATITIS ATTACK Time Seen by Provider: 05/15/19 09:15 Source: patient and old records reviewed Mode of arrival: Ambulatory Limitations: no limitations History of Present Illness HPI narrative: This is a 63-year-old male who comes with complaint of epigastric pain. Patient states it started within the last hour. Patient states it feels similar to when he had pancreatitis about a year ago but much more intense. He denies any fevers. No chest pain or shortness of breath. No nausea, no vomiting. No issues with bowel movements or urination. He denies any swelling in his lower extremities. He states that he was seen here had evaluation they didn't find an acute cause. He does have a history of CABG. He continues to take blood pressure medication, Lasix and a statin. He takes an aspirin 81 mg daily. Denies any other new surgeries. Denies any other new interventions. Patient states no tobacco, denies alcohol or illicit. Related Data Home Medications Medication Instructions Recorded Confirmed aspirin 81 mg PO QAM #0 09/22/03 05/15/19 atorvastatin 80 mg PO BEDTIME #0 02/27/17 05/15/19 cholecalciferol (vitamin D3) 1,000 unit PO QAM 06/08/18 05/15/19 lisinopril 40 mg PO BEDTIME 06/08/18 05/15/19 potassium chloride 10 meq PO QAM 06/08/18 05/15/19 furosemide 40 mg PO QAM 05/15/19 05/15/19 metoprolol succinate 100 mg PO QAM 05/15/19 05/15/19 Allergies Allergy/AdvReac Type Severity Reaction Status Date / Time codeine [CODEINE] Allergy Unknown Verified 05/15/19 09:26 Review of Systems Review of Systems ROS Unobtainable: All systems reviewed & are unremarkable except as noted in HPI and below Patient History Medical History Dyslipidemia (Acute) GERD (gastroesophageal reflux disease) (Acute) Hypertension (Acute) Prediabetes (Acute) Surgical History S/P CABG x 3 (Acute) Family History Mother No problems noted. Father No problems noted. Social History household members: other Smoking Status: Never smoker alcohol intake: never substance use type: does not use Smoking Status: Never smoker Substance Use Type: does not use Exam Narrative Exam Narrative: GEN: well nourished, well appearing male, alert and oriented x 3, patient appears to be in mild distress. HEENT: Atraumatic, pupils are equal round reactive to light, extraocular movements are intact. HEART: Regular rate and rhythm without murmur, clicks, rubs. No edema noted bilateral lower extremities. LUNGS:Lungs clear to auscultation, no wheezes, rales, crackles, chest moves symmetrically, no tachypnea. No accessory muscle use. ABD:bowel sounds normal, soft, mild epigastric tenderness, no guarding, rebound, rigidity, no masses noted, no hepatosplenomegaly, no pulsatile mass or bruit. :No CVA tenderness MSCL: Non-tender, no muscle atrophy, muscles strength 5/5 upper and lower extremities, full range of motion, normal gait NEURO:CN 2-12 intact, sensation normal. SKIN: No rash or skin changes. Initial Vital Signs Initial Vital Signs: Vital Signs Temperature 98.7 F 05/15/19 09:05 Pulse Rate 55 L 05/15/19 09:05 Respiratory Rate 12 05/15/19 09:05 Blood Pressure 183/71 H 05/15/19 09:05 Pulse Oximetry 100 05/15/19 09:05 Course Orders Ordered: ED Orders 05/15/19 09:10 EKG-12 Lead Routine 05/15/19 09:21 US abdomen limited Stat XR chest 1V Stat 05/15/19 09:38 Complete Blood Count AUTO DIFF Stat Comprehensive Metabolic Panel Stat Lipase Stat Troponin & CK Cardiac Panel Stat Sodium Chloride (Normal Saline 0.9%) 1,000 mls @ 500 mls/hr IV CONT NESHA Last Infusion: 05/15/19 11:36 Dose: 0 mls/hr Documented by: Admin: 05/15/19 09:28 Dose: 500 mls/hr Documented by: DESTINI Discontinued Medications Morphine Sulfate (Morphine) 4 mg IV NOW ONE Stop: 05/15/19 12:30 Last Admin: 05/15/19 12:36 Dose: 4 mg Documented by: DESTINI Vital Signs Vital signs: Vital Signs - 8 hr 05/15/19 09:05 05/15/19 09:25 05/15/19 09:35 Temperature 98.7 F Pulse Rate 55 L 58 L 52 L Respiratory Rate 12 14 17 Blood Pressure 183/71 H Blood Pressure [Right Arm] 145/49 H 127/57 L Pulse Oximetry 100 100 100 05/15/19 10:03 05/15/19 10:32 Temperature Pulse Rate 56 L 65 Respiratory Rate 18 Blood Pressure Blood Pressure [Right Arm] 103/55 L 112/47 L Pulse Oximetry 98 95 MDM - Abdominal Pain Lab Data Attestation: I reviewed the patient's lab results. Result diagrams: 05/15/19 09:38 05/15/19 09:38 Labs: Lab Results 05/15/19 05/15/19 05/15/19 Range/Units 09:38 09:38 09:38 WBC 8.8 (4.5-11.0) X10^3/uL RBC 5.77 (4.5-5.9) X10^6/uL Hgb 17.3 (13.5-17.5) g/dL Hct 50.6 (41-53) % MCV 87.7 (80-100) fL MCH 30.0 (26-34) PG MCHC 34.1 (30-36) % RDW 13.2 (11.6-14.8) % Plt Count 135 L (150-400) X10^3/uL Neut % (Auto) 48.4 L (50-75) % Lymph % (Auto) 35.9 (25-40) % [place] % (Auto) 11.2 (3-14) % Eos % (Auto) 4.1 H (2-4) % Baso % (Auto) 0.4 (0-2) % Neut # (Auto) 4300 (5080-0916) /uL Lymph # (Auto) 3200 (4776-4233) /uL [place] # (Auto) 1000 H (0-900) /uL Eos # (Auto) 400 (0-450) /uL Baso # (Auto) 0 (0-100) /uL Sodium 138 (137-145) mmol/L Potassium 3.8 (3.4-5.1) mmol/L Chloride 102 (98-107) mmol/L Carbon Dioxide 27 (22-32) mmol/L BUN 19 (9-20) mg/dL Creatinine 1.10 (0.66-1.25) mg/dL Estimated GFR > 60.0 (>60) mL/min BUN/Creatinine Ratio 17.3 (6-22) Glucose 159 H (80-110) mg/dL Calcium 8.7 (8.4-10.2) mg/dL Total Bilirubin 1.3 (0.2-1.3) mg/dL AST 61 H (17-59) IU/L ALT 45 (<50) IU/L Alkaline Phosphatase 85 (38-126) U/L Total Creatine Kinase 134 (55-170) U/L CK-MB (CK-2) 4.01 H (<2.37) ng/mL CK-MB (CK-2) Rel Index 3.0 (1.5-5.0) % Troponin I < 0.012 (0.01-0.034) ng/mL Total Protein 7.0 (6.3-8.2) g/dL Albumin 4.2 (3.5-5.0) g/dL Globulin 2.8 (1.7-4.1) g/dL Albumin/Globulin Ratio 1.5 (1.0-2.8) Lipase 1365 H (23-300) U/L Imaging Data Chest x-ray: Radiologist's impression: [place] [address] XRay Report Signed Patient: Lincoln Lawson R#: [id number] : 5Acct:[id number] Age/Sex: 63 / MDate of Service: 05/15/19 Loc: ED Accession Number: [id number] Procedure: XR chest 1V Ordering Provider: Alexandra Banda D.O. PROCEDURE: XR CHEST 1V INDICATIONS: epigastric pain TECHNIQUE: One view of the chest was acquired. COMPARISON: Merged With [facility], US, US ABDOMEN COMPLETE, 06/08/2018, 10:45. Merged With [facility], , CHEST 1 VIEW, 02/27/2017, 14:52. Merged With [facility], RG, XR CXR 2V, 01/09/2005, 7:47. Merged With [facility], SONU, XR CHEST 1V, 06/08/2018, 9:57. FINDINGS: Surgical changes and devices: Post CABG changes are seen. Lungs and pleura: Low lung volumes are noted. This causes a crowded appearance to the lung markings and limits evaluation. Mild interstitial prominence is seen. Mediastinum: Mediastinal contours appear normal. Heart size is normal. Bones and chest wall: No suspicious bony lesions. There is a stable 7.8 cm rim calcified focus seen overlying the left upper quadrant of the abdomen, presumably related to the spleen. IMPRESSION: Interstitial prominence is seen throughout. The interstitial prominence is nonspecific, yet may be related to pulmonary edema. Post CABG changes. Rim calcified focus involving the left upper quadrant, presumably related to the spleen. Dictated by: Arthur Moreno M.D. on 05/15/2019 at 9:04 Approved by: Arthur Moreno M.D. on 05/15/2019 at 9:06 US - abdomen: Radiologist's impression: [place] [address] Ultrasound Report Signed Patient: Lincoln Lawson [facility]#: [id number] : 5Acct:[id number] Age/Sex: 63 / MDate of Service: 05/15/19 Loc: ED Accession Number: [id number] Procedure: US abdomen limited Ordering Provider: Alexandra Badna D.O. PROCEDURE: US ABDOMEN LIMITED INDICATIONS: EPIGASTRIC PAIN TECHNIQUE: Real-time focused scanning was performed of the abdomen, with image documentation. COMPARISON: Merged With [facility], , US ABDOMEN COMPLETE, 06/08/2018, 10:45. FINDINGS: The liver demonstrates normal size. The liver demonstrates generalized increased echogenicity. This decreases ultrasound sensitivity for detection of hepatic masses. No findings of gallstones or sludge are seen. The gallbladder wall is not thickened, measuring 3 mm or less. No specific pericholecystic fluid is seen. The sono graphic Ware sign is negative. There is no biliary dilatation, the common bile duct measures 5 mm. The pancreas is not seen. Visualized aorta is unremarkable. IMPRESSION: The pancreas is not seen. The gallbladder demonstrates a normal sonographic appearance. No biliary dilatation is seen. The liver demonstrates increased echogenicity. This finding is nonspecific, yet it is attributed to fatty infiltration. Dictated by: Arthur Moreno M.D. on 05/15/2019 at 9:26 Approved by: Arthur Moreno M.D. on 05/15/2019 at 9:27 ECG Data Attestation: I personally reviewed and interpreted this ECG as follows: Prior ECG tracings: available for review Interpretation: EKG shows sinus rhythm with a rate of 61 P are 163 QRS of 102 and QTC of 432. No ST changes appreciated. Patient has prior EKG from 06/08/[address] segments which is sinus bradycardia. MDM Narrative Medical decision making narrative: Patient has symptoms similar to prior pancreatitis but with his cardiac history plan for EKG and troponin. Initial EKG does not show any new changes. Troponin is negative. Lipase is elevated at 1300. Ultrasound they are not able to visualize the pancreas well but no ductal dilation, fatty liver changes with no changes to the gallbladder. Patient's LFTs otherwise are normal except for an AST that 61. Patient does not have a white count he has been afebrile. Has normal renal function and electrolytes otherwise. Spoke with Dr. Fermin who accepts for admission. Discharge Plan Departure Patient Disposition: Admitted as Observation Clinical Impression: Pancreatitis, acute Discharge Date/Time: 05/15/19 12:45 Admit Date/Time: 05/15/19 11:30 Admit Provider: Janell Fermin
--- NOTE | 2019-05-15 09:21 | DI.US.S_ITS ---
PROCEDURE: US ABDOMEN LIMITED INDICATIONS: EPIGASTRIC PAIN TECHNIQUE: Real-time focused scanning was performed of the abdomen, with image documentation. COMPARISON: [facility], US, US ABDOMEN COMPLETE, 06/08/2018, 10:45. FINDINGS: The liver demonstrates normal size. The liver demonstrates generalized increased echogenicity. This decreases ultrasound sensitivity for detection of hepatic masses. No findings of gallstones or sludge are seen. The gallbladder wall is not thickened, measuring 3 mm or less. No specific pericholecystic fluid is seen. The sonographic Ware sign is negative. There is no biliary dilatation, the common bile duct measures 5 mm. The pancreas is not seen. Visualized aorta is unremarkable. IMPRESSION: The pancreas is not seen. The gallbladder demonstrates a normal sonographic appearance. No biliary dilatation is seen. The liver demonstrates increased echogenicity. This finding is nonspecific, yet it is attributed to fatty infiltration. Dictated by: Arthur Moreno M.D. on 05/15/2019 at 9:26 Approved by: Arthur Moreno M.D. on 05/15/2019 at 9:27
--- NOTE | 2019-05-15 09:21 | DI.RAD.S_ITS ---
PROCEDURE: XR CHEST 1V INDICATIONS: epigastric pain TECHNIQUE: One view of the chest was acquired. COMPARISON: [facility], US, US ABDOMEN COMPLETE, 06/08/2018, 10:45. [facility], CR, CHEST 1 VIEW, 02/27/2017, 14:52. [facility], RG, XR CXR 2V, 01/09/2005, 7:47. [facility], CR, XR CHEST 1V, 06/08/2018, 9:57. FINDINGS: Surgical changes and devices: Post CABG changes are seen. Lungs and pleura: Low lung volumes are noted. This causes a crowded appearance to the lung markings and limits evaluation. Mild interstitial prominence is seen. Mediastinum: Mediastinal contours appear normal. Heart size is normal. Bones and chest wall: No suspicious bony lesions. There is a stable 7.8 cm rim calcified focus seen overlying the left upper quadrant of the abdomen, presumably related to the spleen. IMPRESSION: Interstitial prominence is seen throughout. The interstitial prominence is nonspecific, yet may be related to pulmonary edema. Post CABG changes. Rim calcified focus involving the left upper quadrant, presumably related to the spleen. Dictated by: Arthur Moreno M.D. on 05/15/2019 at 9:04 Approved by: Arthur Moreno M.D. on 05/15/2019 at 9:06
[2019-05-15] MEDS: MORPHINE 4 MG/ML INJ (09:28)
[2019-05-15] MEDS: ONDANSETRON 4 MG/2 ML INJ (09:28)
[2019-05-15] MEDS: SODIUM CHLORIDE 0.9% 1,000 ML 500 ML IV (09:28)
[2019-05-15 09:46] LABS: Add Manual Diff / Slide Review NO; Basophils Absolute Auto 0 /uL (0-100); Basophils Percent Auto 0.4 % (0-2); Eosinophils Absolute Auto 400 /uL (0-450); Eosinophils Percent Auto 4.1 % (2-4); Hematocrit 50.6 % (41-53); Hemoglobin 17.3 g/dL (13.5-17.5); Lymphocytes Absolute Auto 3200 /uL (1100-4500); Lymphocytes Percent Auto 35.9 % (25-40); Mean Corpuscular HGB Conc 34.1 % (30-36); Mean Corpuscular Volume 87.7 fL (80-100); Monocytes Absolute Auto 1000 /uL (0-900); Monocytes Percent Auto 11.2 % (3-14); Neutrophils Absolute Auto 4300 /uL (1500-7000); Neutrophils Percent Auto 48.4 % (50-75); Platelet Count 135 X10^3/uL (150-400); Red Blood Cell Count 5.77 X10^6/uL (4.5-5.9); Red Cell Distribution Width 13.2 % (11.6-14.8); White Blood Cell Count 8.8 X10^3/uL (4.5-11.0)
[2019-05-15 09:57] LABS: Alanine Aminotransferase 45 IU/L (<50); Albumin 4.2 g/dL (3.5-5.0); Albumin Globulin Ratio 1.5 (1.0-2.8); Alkaline Phosphatase 85 U/L (38-126); Aspartate Aminotransferase 61 IU/L (17-59); BUN Creatinine Ratio 17.3 (6-22); Bilirubin Total 1.3 mg/dL (0.2-1.3); Blood Urea Nitrogen 19 mg/dL (9-20); Calcium 8.7 mg/dL (8.4-10.2); Carbon Dioxide 27 mmol/L (22-32); Chloride 102 mmol/L (98-107); Estimated Glomerular Filt Rate > 60.0 mL/min (>60); Globulin 2.8 g/dL (1.7-4.1); Glucose 159 mg/dL (80-110); HEMOLYSIS 17 (0-50); Lipase 1365 U/L (23-300); Potassium 3.8 mmol/L (3.4-5.1); Sodium 138 mmol/L (137-145)
[2019-05-15 09:58] LABS: Creatine Kinase 134 U/L (55-170)
[2019-05-15 10:09] LABS: Troponin I < 0.012 ng/mL (0.01-0.034)
[2019-05-15 10:13] LABS: Creatine Kinase MB 4.01 ng/mL (<2.37)
[2019-05-15] MEDS: MORPHINE 4 MG/ML INJ IV (12:36)
--- NOTE | 2019-05-15 13:24 | PC.NURSE ---
Admit Note Pt arrived to room 212 at 1250 from ER via wheelchair. Pt steady on feet and transferred self without issue to bed. Assessed at low fall risk. Alert and oriented x3. Denies pain at this time, received morphine IV prior to transfer, pt reports this is effective. Denies nausea. Belongings in room - clothing, shoes, socks, wallet, glasses, and cell phone. Declines to lock up any valuables in safe. Oriented to room and to bed/tv/call light controls. Call light within reach.
--- NOTE | 2019-05-15 14:02 | P.HP_ITS ---
History of Present Illness History of Present Illness Date Patient Seen: 05/15/19 Chief complaint: ACUTE PANCREATITIS ATTACK Narrative: The patient is a 63-year-old male with a history of coronary artery disease, with a history of CABG, hypertension, hyperlipidemia, history of pancreatitis in May of 2018 who presented to the hospital today for abrupt onset midepigastric pain. Patient states he was in his usual state of health until this morning. He ate half a sandwich and drank some milk and developed immediate severe midepigastric pain. Pain is described as 10/10. It did not radiate. It was not associated with nausea or vomiting. The pain lasted until he received morphine in the emergency room. The patient denies any jaundice, nathaniel-colored stool, or dark urine. He has had no fever or chills. He denies any hematemesis melena or bright red blood per rectum. The patient also reports he does not drink alcohol. He had an abdominal ultrasound in the emergency department. This showed no gallstones gallbladder wall thickening or biliary ductal dilatation. When the patient was here in May he had an ultrasound at that time which was negative. Any further workup of his pancreatitis was unremarkable. Patient was evaluated in the emergency room. Lipase was elevated at over 1300. He is admitted to the hospital at this time for treatment of acute pancreatitis. Patient History Medical History Dyslipidemia (Acute) GERD (gastroesophageal reflux disease) (Acute) Hypertension (Acute) Prediabetes (Acute) Surgical History S/P CABG x 3 (Acute) Family & Social History Family History Mother No problems noted. Father No problems noted. Social History: household members other Safety & Behavioral: Feels Safe in Current Yes Environment Been Physically Hurt or No Threatened By a Person Suicidal Ideation Description None Suicide Plan Description No Plan Tobacco & Substance use: Smoking Status Never smoker alcohol intake never alcohol intake frequency 0-2 drinks per day Substance Use Type does not use Meds Home Medications and Allergies Home Medications Medication Instructions Recorded Confirmed Type aspirin 81 mg PO QAM #0 09/22/03 05/15/19 History atorvastatin 80 mg PO BEDTIME #0 02/27/17 05/15/19 History cholecalciferol (vitamin D3) 1,000 unit PO QAM 06/08/18 05/15/19 History lisinopril 40 mg PO BEDTIME 06/08/18 05/15/19 History potassium chloride 10 meq PO QAM 06/08/18 05/15/19 History furosemide 40 mg PO QAM 05/15/19 05/15/19 History metoprolol succinate 100 mg PO QAM 05/15/19 05/15/19 History Allergies Allergy/AdvReac Type Severity Reaction Status Date / Time codeine [CODEINE] Allergy Unknown Verified 05/15/19 09:26 Review of Systems Review of Systems ROS Unobtainable: All systems reviewed & are unremarkable except as noted in HPI and below Exam Vital Signs (past 8 hours): - 05/15/19 09:05 05/15/19 09:25 05/15/19 09:35 Temperature 98.7 F Pulse Rate 55 L 58 L 52 L Respiratory Rate 12 14 17 Blood Pressure 183/71 H Blood Pressure [Right Arm] 145/49 H 127/57 L Pulse Oximetry 100 100 100 05/15/19 10:03 05/15/19 10:32 05/15/19 11:36 Temperature Pulse Rate 56 L 65 66 Respiratory Rate 18 14 Blood Pressure Blood Pressure [Right Arm] 103/55 L 112/47 L 119/51 L Pulse Oximetry 98 95 98 05/15/19 12:00 05/15/19 13:00 Temperature 97.3 F L Pulse Rate 55 L 61 Respiratory Rate 19 18 Blood Pressure 135/71 Blood Pressure [Right Arm] 104/45 L Pulse Oximetry 98 97 Oxygen Delivery Method Room Air Oxygen Flow Rate 0 Narrative Exam Narrative: Pleasant male in no acute distress HEENT: Normocephalic atraumatic, extraocular muscles are intact, sclerae anicteric, oropharynx reveals moist mucous membranes, neck is supple without adenopathy or thyromegaly Lungs: Clear to auscultation without rhonchi crackles or wheezes Cardiac exam: Regular rate and rhythm normal S1-S2 with a 2/6 systolic ejection murmur Abdomen: Soft scaphoid and nontender, there is no appreciable hepatosplenomegaly, there is no palpable masses, the patient does have some minimal epigastric pain with deep palpation, there's no board-like rigidity, or rebound tenderness Extremities: No edema Neuro exam: Nonfocal Skin exam: No lesion Psychiatric exam: Patient is awake alert and appropriate, he has no delusions hallucinations or confusion. His mood and affect is appropriate. Objective Labs Result Diagrams: 05/15/19 09:38 05/15/19 09:38 Labs: Laboratory Results - last 24 hr 05/15/19 05/15/19 12 09:38 09:38 09:38 WBC 8.8 RBC 5.77 Hgb 17.3 Hct 50.6 MCV 87.7 MCH 30.0 MCHC 34.1 RDW 13.2 Plt Count 135 L Neut % (Auto) 48.4 L Lymph % (Auto) 35.9 [place] % (Auto) 11.2 Eos % (Auto) 4.1 H Baso % (Auto) 0.4 Neut # (Auto) 4300 Lymph # (Auto) 3200 [place] # (Auto) 1000 H Eos # (Auto) 400 Baso # (Auto) 0 Sodium 138 Potassium 3.8 Chloride 102 Carbon Dioxide 27 BUN 19 Creatinine 1.10 Estimated GFR > 60.0 BUN/Creatinine Ratio 17.3 Glucose 159 H Calcium 8.7 Total Bilirubin 1.3 AST 61 H ALT 45 Alkaline Phosphatase 85 Total Creatine Kinase 134 CK-MB (CK-2) 4.01 H CK-MB (CK-2) Rel Index 3.0 Troponin I < 0.012 Total Protein 7.0 Albumin 4.2 Globulin 2.8 Albumin/Globulin Ratio 1.5 Lipase 1365 H Assessment & Plan Assessment & Plan narrative: Impression 1. 63-year-old male admitted to the hospital with acute pancreatitis, etiology unclear. -patient had a full workup during his prior hospital stay including an abdominal ultrasound which Were negative -will continue with IV fluids, keep him NPO, continue antiemetics, and pain medication -will obtain an MRCP tomorrow given his recurrent episodes in no obvious etiology 2. Coronary artery disease, history of CABG -continue aspirin, and metoprolol, and statin 3. Hypertension, continue lisinopril 4. Pre diabetes, will check Chemsticks here in the hospital as well as a hemoglobin A1c 5. Given the patient's acute pancreatitis will hold Lasix at this time and continue with aggressive IV hydration. Patient indicates he is a full code will note that his record accordingly. Patient is an in patient is it's expected that he will be here for greater than 2 days. Quality VTE Deep Vein Thrombosis/Pulmonary Embolism Present on Admission: No
[2019-05-15 14:32] LABS: Bacteria Urine None Seen
[2019-05-15 14:33] LABS: Appearance Urine UA CLEAR; Bilirubin Urine UA NEGATIVE (NEGATIVE); Color Urine UA YELLOW; Glucose Urine UA NEGATIVE (Negative); Ketones Urine UA NEGATIVE (NEGATIVE); Leukocyte Esterase Urine UA NEGATIVE (NEGATIVE); Nitrite Urine UA NEGATIVE (Negative); Occult Blood Urine UA NEGATIVE (Negative); Protein Urine UA NEGATIVE (Negative); Urobilinogen Urine UA 0.2 E.U./dL (0.2)
[2019-05-15] MEDS: ENOXAPARIN 40 MG/0.4 ML SYRINGE SUBCUT (14:37)
[2019-05-15] MEDS: SODIUM CHLORIDE 0.9% 1,000 ML 150 ML IV ×2 (14:38→21:30)
[2019-05-15 14:41] LABS: Culture Indicated Urine Cult Not Indicated; RBC Urine 0-1/HPF (0-5/HPF); Squamous Epithelial Cell Urine 0-1 /HPF (0-5/HPF); WBC Urine 1-5/HPF (0-5/HPF)
[2019-05-15 14:56] LABS: Cholesterol 176 mg/dL (140-199); HDL Cholesterol 29 mg/dL (40-60); Triglycerides 404 mg/dL (35-150)
[2019-05-16] VITALS: O2SAT 97
--- NOTE | 2019-05-16 03:50 | PC.NURSE ---
Patient has denied pain this shift. Independent in the room, remains NPO with IVF.
[2019-05-16 04:21] VITALS: BP 134/69; PULSE 56; RESP 16; TEMP 36.4; O2SAT 98
[2019-05-16] MEDS: SODIUM CHLORIDE 0.9% 1,000 ML 150 ML IV (04:40)
[2019-05-16 05:57] LABS: Add Manual Diff / Slide Review NO; Basophils Absolute Auto 0 /uL (0-100); Basophils Percent Auto 0.4 % (0-2); Eosinophils Absolute Auto 200 /uL (0-450); Eosinophils Percent Auto 2.9 % (2-4); Hematocrit 45.9 % (41-53); Hemoglobin 15.4 g/dL (13.5-17.5); Lymphocytes Absolute Auto 2400 /uL (1100-4500); Lymphocytes Percent Auto 28.6 % (25-40); Mean Corpuscular HGB Conc 33.6 % (30-36); Mean Corpuscular Hemoglobin 29.7 PG (26-34); Mean Corpuscular Volume 88.4 fL (80-100); Monocytes Absolute Auto 800 /uL (0-900); Monocytes Percent Auto 10.1 % (3-14); Neutrophils Absolute Auto 4800 /uL (1500-7000); Platelet Count 119 X10^3/uL (150-400); Red Blood Cell Count 5.19 X10^6/uL (4.5-5.9); Red Cell Distribution Width 13.2 % (11.6-14.8); White Blood Cell Count 8.2 X10^3/uL (4.5-11.0)
[2019-05-16 05:59] LABS: Blood Urea Nitrogen 17 mg/dL (9-20); Calcium 8.4 mg/dL (8.4-10.2); Carbon Dioxide 29 mmol/L (22-32); Chloride 106 mmol/L (98-107); Estimated Glomerular Filt Rate > 60.0 mL/min (>60); Glucose 95 mg/dL (80-110); HEMOLYSIS < 15 (0-50); Potassium 4.4 mmol/L (3.4-5.1); Sodium 139 mmol/L (137-145)
[2019-05-16 07:53] VITALS: BP 140/59; PULSE 53; RESP 16; TEMP 36.6; O2SAT 98
--- NOTE | 2019-05-16 07:57 | PC.NURSE ---
Patient sitting up in chair this morning, awake, oriented, pleasant. Denies pain, denies nausea or vomiting. Denies chills and fevers. VSS. States he is hopeful to go home and he is hungry. Patient has remained NPO overnight with IV fluids as ordered. Voiding without difficulty. Plan for MRCP this morning. Call light within reach.
[2019-05-16] MEDS: ENOXAPARIN 40 MG/0.4 ML SYRINGE SUBCUT (08:28)
[2019-05-16] MEDS: METOPROLOL ER 50 MG TABLET 100 MG PO (08:28)
[2019-05-16] MEDS: ASPIRIN EC 81 MG TABLET PO (08:29)
[2019-05-16 10:19] LABS: Alanine Aminotransferase 36 IU/L (<50); Albumin 3.8 g/dL (3.5-5.0); Albumin Globulin Ratio 1.5 (1.0-2.8); Alkaline Phosphatase 61 U/L (38-126); Aspartate Aminotransferase 32 IU/L (17-59); Bilirubin Total 1.2 mg/dL (0.2-1.3); Blood Urea Nitrogen 16 mg/dL (9-20); Calcium 8.5 mg/dL (8.4-10.2); Carbon Dioxide 25 mmol/L (22-32); Chloride 105 mmol/L (98-107); Estimated Glomerular Filt Rate > 60.0 mL/min (>60); Globulin 2.6 g/dL (1.7-4.1); Glucose 106 mg/dL (80-110); HEMOLYSIS < 15 (0-50); Lipase 113 U/L (23-300); Potassium 4.5 mmol/L (3.4-5.1); Sodium 137 mmol/L (137-145); Total Protein 6.4 g/dL (6.3-8.2)
[2019-05-16 11:00] VITALS: BP 119/68; PULSE 47; RESP 16; TEMP 36.9; O2SAT 100
--- NOTE | 2019-05-16 11:29 | PC.NURSE ---
Patient advancing diet as tolerated, started with clear liquids and tolerated well. Trying heart healthy diet at this time, will anticipate discharge after lunch if tolerating well. continue to follow.
--- NOTE | 2019-05-16 14:02 | CM.IDA ---
Initial DCP Assessment Note: Pt is a 63 yo male, resident of [place]. Pt admitted for acute pancreatitis and is heading home today. PCP: Unknown Payer: Medicaid Met w/pt before he left his room. He was eating lunch and expected to be DC back home today. Pt lives w/his 3 brothers, indp at baseline, and they are available to assist as needed upon return home. ROSALINDA Champion
--- NOTE | 2019-05-16 14:05 | PM.DS.1 ---
History of Present Illness History of Present Illness Chief complaint: ACUTE PANCREATITIS ATTACK Narrative: The patient is a 63-year-old male with a history of coronary artery disease, with a history of CABG, hypertension, hyperlipidemia, history of pancreatitis in May of 2018 who presented to the hospital today for abrupt onset midepigastric pain. Patient states he was in his usual state of health until this morning. He ate half a sandwich and drank some milk and developed immediate severe midepigastric pain. Pain is described as 10/10. It did not radiate. It was not associated with nausea or vomiting. The pain lasted until he received morphine in the emergency room. The patient denies any jaundice, nathaniel-colored stool, or dark urine. He has had no fever or chills. He denies any hematemesis melena or bright red blood per rectum. The patient also reports he does not drink alcohol. He had an abdominal ultrasound in the emergency department. This showed no gallstones gallbladder wall thickening or biliary ductal dilatation. When the patient was here in May he had an ultrasound at that time which was negative. Any further workup of his pancreatitis was unremarkable. Patient was evaluated in the emergency room. Lipase was elevated at over 1300. He is admitted to the hospital at this time for treatment of acute pancreatitis. Discharge Providers Provider Date of admission: 05/15/19 11:30 Discharge Date: 05/16/19 Discharge provider: Janell Fermin MD Summary Hospital Course Discharge Diagnosis: 1. Acute pancreatitis 2. Hyperlipidemia 3. Hypertension Hospital Course: Patient was admitted to the hospital for abrupt onset of midepigastric pain. He was made NPO given IV fluids and pain medication. His initial lipase was 1300. Following day the patient had complete resolution of his pain and was ready to advance his diet. He tolerated both breakfast and lunch without difficulty. He is repeat lipase had normalized. Patient was deemed appropriate for discharge home. The patient was scheduled for an MRCP. However during the procedure he became quite claustrophobic and requested to abort the procedure. Abdominal ultrasound in the ED was obtained which showed no thickening of the gallbladder or evidence of gallstones. Patient will follow-up with his primary care physician as an outpatient for further workup of recurrent pancreatitis. Status at Discharge Cognitive/behavioral status at discharge: oriented Functional status at discharge: independent ambulation Overall status at discharge: patient is back to baseline Time Spent with Patient Time spent: Less than 30 minutes Exam Vital Signs (past 8 hours): - 05/16/19 07:53 05/16/19 11:00 Temperature 97.9 F 98.4 F Pulse Rate 53 L 47 L Respiratory Rate 16 16 Blood Pressure 140/59 L 119/68 Pulse Oximetry 98 100 Oxygen Delivery Method Room Air Oxygen Flow Rate 0 Narrative Exam Narrative: Pleasant male in no acute distress Lungs: Clear to auscultation Cardiac exam: Regular rate and rhythm normal S1-S2 Abdomen: Soft nontender nondistended no hepatosplenomegaly Extremities: No edema Objective Labs Result Diagrams: 05/16/19 05:40 05/16/19 10:03 Labs: Laboratory Results - last 24 hr 05/15/19 05/15/19 05/15/19 09:37 09:37 14:30 WBC RBC Hgb Hct MCV MCH MCHC RDW Plt Count Neut % (Auto) Lymph % (Auto) [place] % (Auto) Eos % (Auto) Baso % (Auto) Neut # (Auto) Lymph # (Auto) [place] # (Auto) Eos # (Auto) Baso # (Auto) Sodium Potassium Chloride Carbon Dioxide BUN Creatinine Estimated GFR BUN/Creatinine Ratio Glucose Hemoglobin A1c 6.0 Calcium Total Bilirubin AST ALT Alkaline Phosphatase Total Protein Albumin Globulin Albumin/Globulin Ratio Triglycerides 404 H Cholesterol 176 LDL Cholesterol, Calc TNP HDL Cholesterol 29 L Lipase Urine Color Yellow Urine Appearance Clear Urine pH 7.0 Ur Specific [place] 1.010 Urine Protein Negative Urine Glucose (UA) Negative Urine Ketones Negative Urine Occult Blood Negative Urine Nitrate Negative Urine Bilirubin Negative Urine Urobilinogen 0.2 Ur Leukocyte Esterase Negative Urine RBC 0-1/hpf Urine WBC 1-5/hpf Ur Squamous Epith Cells 0-1 /hpf Urine Bacteria None seen Ur Culture Indicated? Cult not indicated 05/16/19 05/16/19 05/16/19 05:40 05:40 10:03 WBC 8.2 RBC 5.19 Hgb 15.4 Hct 45.9 MCV 88.4 MCH 29.7 MCHC 33.6 RDW 13.2 Plt Count 119 L Neut % (Auto) 58.0 Lymph % (Auto) 28.6 [place] % (Auto) 10.1 Eos % (Auto) 2.9 Baso % (Auto) 0.4 Neut # (Auto) 4800 Lymph # (Auto) 2400 [place] # (Auto) 800 Eos # (Auto) 200 Baso # (Auto) 0 Sodium 139 137 Potassium 4.4 4.5 Chloride 106 105 Carbon Dioxide 29 25 BUN 17 16 Creatinine 1.00 1.00 Estimated GFR > 60.0 > 60.0 BUN/Creatinine Ratio 17.0 16.0 Glucose 95 106 Hemoglobin A1c Calcium 8.4 8.5 Total Bilirubin 1.2 AST 32 ALT 36 Alkaline Phosphatase 61 Total Protein 6.4 Albumin 3.8 Globulin 2.6 Albumin/Globulin Ratio 1.5 Triglycerides Cholesterol LDL Cholesterol, Calc HDL Cholesterol Lipase 113 D Urine Color Urine Appearance Urine pH Ur Specific [place] Urine Protein Urine Glucose (UA) Urine Ketones Urine Occult Blood Urine Nitrate Urine Bilirubin Urine Urobilinogen Ur Leukocyte Esterase Urine RBC Urine WBC Ur Squamous Epith Cells Urine Bacteria Ur Culture Indicated? Discharge Plan Discharge Plan Patient Disposition: Home Discharge orders & Medications Prescriptions: Continued aspirin 81 MG tablet,delayed release (DR/EC) 81 mg PO QAM Qty: 0 RF: 0 atorvastatin 80 MG tablet 80 mg PO BEDTIME Qty: 0 RF: 0 potassium chloride 10 mEq tablet extended release 10 meq PO QAM RF: 0 lisinopril 40 mg tablet 40 mg PO BEDTIME RF: 0 cholecalciferol (vitamin D3) 1,000 unit tablet 1,000 unit PO QAM RF: 0 metoprolol succinate 100 mg tablet extended release 24 hr 100 mg PO QAM RF: 0 furosemide 40 mg tablet 40 mg PO QAM RF: 0 Diet/Activity/Treatments Diet: Low-sodium and Low-cholesterol Activity: as tolerated Skin/Wound/Dressing Care Report to your healthcare provider any signs of infection, such as:: increased pain Visit Report/Discharge Packet Instructions: DI for Pancreatitis Visit Report Forms: Patient Portal/API, Stroke Signs & Symptoms Discharges patient from system. Discharge Date/Time: 05/16/19 12:30 Quality VTE Deep Vein Thrombosis/Pulmonary Embolism Present on Admission: No
== END 2019-05-16 12:30 | disposition home or self-care (01) | DRG 440 ==
LOC: ED 11:28 → AC 05-16 07:55
PROVIDERS: Admitting Provider Internal Medicine; Emergency Provider Emergency Medicine; Visit Provider Internal Medicine
DX: K85.90 Acute pancreatitis without necrosis or infection, unspecified (principal); I25.10 Atherosclerotic heart disease of native coronary artery without angina pectoris; Z95.1 Presence of aortocoronary bypass graft; I10 Essential (primary) hypertension; R73.03 Prediabetes; E78.5 Hyperlipidemia, unspecified
CPT/HCPCS: 36415; 71045; 76705; 80048; 80053; 80061; 81001; 82550; 82553; 83036; 83690; 84484; 85025; 93005; 96361; 96374; 96375; 96376; 99285; J1650; J2270; J2405

== ENCOUNTER 2019-05-19 09:19 | Emergency (ER) | payer MEDICAID, SELFPAY ==
[2019-05-15 13:13] VITALS: BMI 36.8
[2019-05-19 09:27] VITALS: BP 173/88; PULSE 51; RESP 20; TEMP 36.7; O2SAT 96; BMI 35.4
--- NOTE | 2019-05-19 09:47 | ED_ITS ---
HPI - Abdominal Pain General Chief Complaint: Abdominal Pain Stated Complaint: here 05/15 for pancreatitis/pain Time Seen by Provider: 05/19/19 09:26 Source: patient Mode of arrival: Ambulatory Limitations: no limitations History of Present Illness HPI narrative: Patient is a 63-year-old male presenting with epigastric pain. He was recently admitted with pancreatitis of lipase over 1300 he had ultrasound which did not show any gallstones he was discharged the following day. He had a toast and craven this morning for breakfast and immediately had some epigastric pain. He feels little nauseous no vomiting no fever. He is worried that his pancreatitis might be back. He denies any chest pain or radiation of pain. MD complaint: abdominal pain Location: epigastric Quality: sharp Related Data Home Medications Medication Instructions Recorded Confirmed aspirin 81 mg PO QAM #0 09/22/03 05/15/19 atorvastatin 80 mg PO BEDTIME #0 02/27/17 05/15/19 cholecalciferol (vitamin D3) 1,000 unit PO QAM 06/08/18 05/15/19 lisinopril 40 mg PO BEDTIME 06/08/18 05/15/19 potassium chloride 10 meq PO QAM 06/08/18 05/15/19 furosemide 40 mg PO QAM 05/15/19 05/15/19 metoprolol succinate 100 mg PO QAM 05/15/19 05/15/19 Allergies Allergy/AdvReac Type Severity Reaction Status Date / Time codeine [CODEINE] Allergy Unknown Verified 05/19/19 09:28 Review of Systems Review of Systems Narrative: GENERAL: Denies chills, fatigue, malaise, fever, sweats, travel HEENT: Denies sinus pain, ear pain, sore throat, difficulty swallowing, neck pain RESPIRATORY: Denies dyspnea, cough, wheezing, hemoptysis, sputum. CARDIOVASCULAR: Denies chest pain, palpitations, orthopnea, edema GASTROINTESTINAL: See HPI : Denies dysuria, frequency, incontinence, hematuria, urinary retention, flank pain. MUSCULOSKELETAL: Denies weakness, joint pain, or bony pain SKIN: No rash, no erythema, no pruritus NEUROLOGIC: Denies weakness, dizziness, headache, numbness, change in speech, confusion PSYCHIATRIC: No concerning psychosocial issues. 12 point review of systems is negative except for those stated above and HPI Patient History Medical History Dyslipidemia (Acute) GERD (gastroesophageal reflux disease) (Acute) Hypertension (Acute) Prediabetes (Acute) Surgical History S/P CABG x 3 (Acute) Family History Mother No problems noted. Father No problems noted. Social History household members: other Smoking Status: Never smoker alcohol intake: never substance use type: does not use Smoking Status: Never smoker alcohol intake frequency: 0-2 drinks per day Substance Use Type: does not use Exam Initial Vital Signs Initial Vital Signs: Vital Signs Temperature 98.1 F 05/19/19 09:27 Pulse Rate 51 L 05/19/19 09:27 Respiratory Rate 20 05/19/19 09:27 Blood Pressure 173/88 H 05/19/19 09:27 Pulse Oximetry 96 05/19/19 09:27 GENERAL: Well-appearing, well-nourished and in no acute distress. HEENT: Head atraumatic,EOMI, pupils reactive, face symmetric, moist mucous membranes CARDIOVASCULAR: Regular rate and rhythm without murmurs, rubs or gallops. RESPIRATORY: Breath sounds equal bilaterally, no wheezes rales or rhonchi. ABDOMEN: Soft, mild epigastric pain no guarding no rebound no right upper quadrant pain negative Ware sign EXTREMITIES: Normal range of motion, no clubbing or edema. Neurovascularly intact NEUROLOGICAL: Alert and oriented x4.Normal gait and speech. Cranial nerves II through XII grossly intact. SKIN: Warm, dry, no laceration, no petechiae, no rashes or lesions. Scores HEART Score Heart Score history: Slightly Suspicious Heart Score EKG: Normal Heart Score Age: 45-64 years old Heart Score risk factors: 1-2 risk factors Heart Score troponin: < or = to normal limit Heart Score Total: 2 Course Orders Ordered: ED Orders 05/19/19 09:30 Complete Blood Count AUTO DIFF Stat Comprehensive Metabolic Panel Stat Lipase Stat Partial Thromboplastin Time Stat Prothrombin Time INR Stat 05/19/19 09:31 Troponin & CK Cardiac Panel Stat 05/19/19 09:53 EKG-12 Lead Stat Discontinued Medications Sodium Chloride (Normal Saline 0.9%) 1,000 mls @ 150 mls/hr IV CONT NESHA Last Infusion: 05/19/19 11:42 Dose: 0 mls/hr Documented by: Infusion: 05/19/19 11:41 Dose: 0 mls/hr Documented by: Admin: 05/19/19 10:03 Dose: 500 mls/hr Documented by: MAYKEL Morphine Sulfate (Morphine) 2 mg IV NOW ONE Stop: 05/19/19 10:00 Last Admin: 05/19/19 10:03 Dose: 2 mg Documented by: MAYKEL Ondansetron HCl (Zofran) 4 mg IV NOW ONE Stop: 05/19/19 10:00 Last Admin: 05/19/19 10:03 Dose: 4 mg Documented by: MAYKEL Pantoprazole Sodium (Protonix) 40 mg IV NOW ONE Stop: 05/19/19 10:09 Last Admin: 05/19/19 10:12 Dose: 40 mg Documented by: DESTINI Vital Signs Vital signs: Vital Signs - 8 hr 05/19/19 09:27 05/19/19 10:08 05/19/19 10:35 Temperature 98.1 F Pulse Rate 51 L 55 L 50 L Respiratory Rate 20 12 12 Blood Pressure 173/88 H Blood Pressure [Left Arm] 138/67 128/59 L Pulse Oximetry 96 98 96 05/19/19 11:04 05/19/19 11:35 Temperature Pulse Rate 46 L 43 L Respiratory Rate 15 17 Blood Pressure Blood Pressure [Left Arm] 111/53 L 116/53 L Pulse Oximetry 94 98 MDM - Abdominal Pain Lab Data Attestation: I reviewed the patient's lab results. Result diagrams: 05/19/19 09:30 05/19/19 09:30 Labs: Lab Results 05/19/19 05/19/19 05/19/19 Range/Units 09:30 09:30 09:30 WBC 11.2 H (4.5-11.0) X10^3/uL RBC 5.86 (4.5-5.9) X10^6/uL Hgb 17.3 (13.5-17.5) g/dL Hct 51.1 (41-53) % MCV 87.1 (80-100) fL MCH 29.6 (26-34) PG MCHC 34.0 (30-36) % RDW 13.0 (11.6-14.8) % Plt Count 151 (150-400) X10^3/uL Neut % (Auto) 53.9 (50-75) % Lymph % (Auto) 32.9 (25-40) % [place] % (Auto) 10.8 (3-14) % Eos % (Auto) 2.1 (2-4) % Baso % (Auto) 0.3 (0-2) % Neut # (Auto) 6000 (3714-8335) /uL Lymph # (Auto) 3700 (3309-0106) /uL [place] # (Auto) 1200 H (0-900) /uL Eos # (Auto) 200 (0-450) /uL Baso # (Auto) 0 (0-100) /uL PT 12.1 (10.1-12.7) SECONDS INR 1.1 (0.9-1.3) APTT 37 H D (26.4-36.2) SECONDS Sodium 138 (137-145) mmol/L Potassium 4.0 (3.4-5.1) mmol/L Chloride 100 (98-107) mmol/L Carbon Dioxide 28 (22-32) mmol/L BUN 17 (9-20) mg/dL Creatinine 1.10 (0.66-1.25) mg/dL Estimated GFR > 60.0 (>60) mL/min BUN/Creatinine Ratio 15.5 (6-22) Glucose 132 H (80-110) mg/dL Calcium 9.1 (8.4-10.2) mg/dL Total Bilirubin 1.2 (0.2-1.3) mg/dL AST 61 H (17-59) IU/L ALT 55 H (<50) IU/L Alkaline Phosphatase 69 (38-126) U/L Total Creatine Kinase (55-170) U/L CK-MB (CK-2) (<2.37) ng/mL CK-MB (CK-2) Rel Index (1.5-5.0) % Troponin I (0.01-0.034) ng/mL Total Protein 7.5 (6.3-8.2) g/dL Albumin 4.6 (3.5-5.0) g/dL Globulin 2.9 (1.7-4.1) g/dL Albumin/Globulin Ratio 1.6 (1.0-2.8) Lipase 375 H D (23-300) U/L 05/19/19 Range/Units 09:31 WBC (4.5-11.0) X10^3/uL RBC (4.5-5.9) X10^6/uL Hgb (13.5-17.5) g/dL Hct (41-53) % MCV (80-100) fL MCH (26-34) PG MCHC (30-36) % RDW (11.6-14.8) % Plt Count (150-400) X10^3/uL Neut % (Auto) (50-75) % Lymph % (Auto) (25-40) % [place] % (Auto) (3-14) % Eos % (Auto) (2-4) % Baso % (Auto) (0-2) % Neut # (Auto) (5334-4346) /uL Lymph # (Auto) (7228-3649) /uL [place] # (Auto) (0-900) /uL Eos # (Auto) (0-450) /uL Baso # (Auto) (0-100) /uL PT (10.1-12.7) SECONDS INR (0.9-1.3) APTT (26.4-36.2) SECONDS Sodium (137-145) mmol/L Potassium (3.4-5.1) mmol/L Chloride (98-107) mmol/L Carbon Dioxide (22-32) mmol/L BUN (9-20) mg/dL Creatinine (0.66-1.25) mg/dL Estimated GFR (>60) mL/min BUN/Creatinine Ratio (6-22) Glucose (80-110) mg/dL Calcium (8.4-10.2) mg/dL Total Bilirubin (0.2-1.3) mg/dL AST (17-59) IU/L ALT (<50) IU/L Alkaline Phosphatase (38-126) U/L Total Creatine Kinase 145 (55-170) U/L CK-MB (CK-2) 3.63 H (<2.37) ng/mL CK-MB (CK-2) Rel Index 2.5 (1.5-5.0) % Troponin I < 0.012 (0.01-0.034) ng/mL Total Protein (6.3-8.2) g/dL Albumin (3.5-5.0) g/dL Globulin (1.7-4.1) g/dL Albumin/Globulin Ratio (1.0-2.8) Lipase (23-300) U/L ECG Data Attestation: I personally reviewed and interpreted this ECG as follows: Prior ECG tracings: available for review Interpretation: Normal sinus rhythm rate 54 p.r. interval [address] elevation depression or T-wave inversion MDM Narrative Medical decision making narrative: The patient shows no sign of pancreatitis lipase is 375 liver enzymes is minimally elevated however no elevation in bilirubin any has no right upper quadrant pain. At this time I see no need for repeat imaging his ultrasound from just a few days ago did not show any gallstones. He is tolerating oral fluids. EKG troponin oral negative. Recommended increasing fluid intake and returning if needed Discharge Plan Departure Patient Disposition: Home Clinical Impression: Abdominal pain Qualifiers: Abdominal location: epigastric Qualified Code(s): R10.13 - Epigastric pain Discharge Date/Time: 05/19/19 11:40 Activity Restrictions/Additional Instructions: *You have been diagnosed with abdominal pain *What to do: At this time there is no sign of pancreatitis. Increase fluids avoid fatty foods. *Continue to take medications as directed *Follow up with your primary care provider in 2-3 days *Return to ER if you should have increasing pain persistent vomiting fevers or any new, worsening or concerning symptoms Prescriptions: No Action aspirin 81 MG tablet,delayed release (DR/EC) 81 mg PO QAM Qty: 0 RF: 0 atorvastatin 80 MG tablet 80 mg PO BEDTIME Qty: 0 RF: 0 potassium chloride 10 mEq tablet extended release 10 meq PO QAM RF: 0 lisinopril 40 mg tablet 40 mg PO BEDTIME RF: 0 cholecalciferol (vitamin D3) 1,000 unit tablet 1,000 unit PO QAM RF: 0 metoprolol succinate 100 mg tablet extended release 24 hr 100 mg PO QAM RF: 0 furosemide 40 mg tablet 40 mg PO QAM RF: 0 Referrals: Shelia Mathew MD [Non-Staff] -
[2019-05-19 09:49] LABS: Add Manual Diff / Slide Review NO; Basophils Absolute Auto 0 /uL (0-100); Basophils Percent Auto 0.3 % (0-2); Eosinophils Absolute Auto 200 /uL (0-450); Eosinophils Percent Auto 2.1 % (2-4); Hematocrit 51.1 % (41-53); Hemoglobin 17.3 g/dL (13.5-17.5); Lymphocytes Absolute Auto 3700 /uL (1100-4500); Lymphocytes Percent Auto 32.9 % (25-40); Mean Corpuscular Hemoglobin 29.6 PG (26-34); Mean Corpuscular Volume 87.1 fL (80-100); Monocytes Absolute Auto 1200 /uL (0-900); Monocytes Percent Auto 10.8 % (3-14); Neutrophils Absolute Auto 6000 /uL (1500-7000); Neutrophils Percent Auto 53.9 % (50-75); Platelet Count 151 X10^3/uL (150-400); Red Blood Cell Count 5.86 X10^6/uL (4.5-5.9); White Blood Cell Count 11.2 X10^3/uL (4.5-11.0)
[2019-05-19 09:54] LABS: Alanine Aminotransferase 55 IU/L (<50); Albumin 4.6 g/dL (3.5-5.0); Albumin Globulin Ratio 1.6 (1.0-2.8); Alkaline Phosphatase 69 U/L (38-126); Aspartate Aminotransferase 61 IU/L (17-59); BUN Creatinine Ratio 15.5 (6-22); Bilirubin Total 1.2 mg/dL (0.2-1.3); Blood Urea Nitrogen 17 mg/dL (9-20); Calcium 9.1 mg/dL (8.4-10.2); Carbon Dioxide 28 mmol/L (22-32); Chloride 100 mmol/L (98-107); Estimated Glomerular Filt Rate > 60.0 mL/min (>60); Globulin 2.9 g/dL (1.7-4.1); Glucose 132 mg/dL (80-110); Lipase 375 U/L (23-300); Sodium 138 mmol/L (137-145); Total Protein 7.5 g/dL (6.3-8.2)
[2019-05-19 10:01] LABS: HEMOLYSIS 84 (0-50)
[2019-05-19] MEDS: MORPHINE 2 MG/ML INJ IV (10:03)
[2019-05-19] MEDS: SODIUM CHLORIDE 0.9% 1,000 ML 500 ML IV (10:03)
[2019-05-19] MEDS: ONDANSETRON 4 MG/2 ML INJ IV (10:03)
[2019-05-19 10:06] LABS: INR 1.1 (0.9-1.3); Prothrombin Time 12.1 SECONDS (10.1-12.7)
[2019-05-19 10:08] VITALS: BP 138/67; PULSE 55; RESP 12; O2SAT 98
[2019-05-19 10:09] LABS: PTT Partial Thromboplastin Tim 37 SECONDS (26.4-36.2)
[2019-05-19] MEDS: PANTOPRAZOLE 40 MG VIAL IV (10:12)
[2019-05-19 10:35] VITALS: BP 128/59; PULSE 50; RESP 12; O2SAT 96
[2019-05-19 10:59] LABS: Creatine Kinase 145 U/L (55-170)
[2019-05-19 11:04] VITALS: BP 111/53; PULSE 46; RESP 15; O2SAT 94
[2019-05-19 11:12] LABS: Troponin I < 0.012 ng/mL (0.01-0.034)
[2019-05-19 11:15] LABS: CKMB % Relative Index 2.5 % (1.5-5.0); Creatine Kinase MB 3.63 ng/mL (<2.37)
[2019-05-19 11:35] VITALS: BP 116/53; PULSE 43; RESP 17; O2SAT 98
== END 2019-05-19 11:40 | disposition home or self-care (01) ==
PROVIDERS: Emergency Provider Emergency Medicine
DX: R10.13 Epigastric pain (principal)
CPT/HCPCS: 36415; 80053; 82550; 82553; 83690; 84484; 85025; 85610; 85730; 93005; 96361; 96374; 96375; 99284; C9113; J2270; J2405

== ENCOUNTER 2020-03-26 07:52 | Emergency (ER) | payer MEDICARE, MEDICAID, SELFPAY ==
[2019-05-15 13:13] VITALS: BMI 36.8
[2020-03-26 08:01] VITALS: BP 191/79; PULSE 58; RESP 20; TEMP 35.6; O2SAT 97; BMI 36.2
--- NOTE | 2020-03-26 08:11 | DI.US.S_ITS ---
PROCEDURE: US ABDOMEN LIMITED INDICATIONS: ruq pain TECHNIQUE: Real-time focused scanning was performed of the abdomen, with image documentation. COMPARISON: [facility], US, US ABDOMEN LIMITED, 05/15/2019, 9:54. FINDINGS: The liver demonstrates prominent size. The liver demonstrates generalized moderately increased echogenicity. This decreases ultrasound sensitivity for detection of hepatic masses. No findings of gallstones or sludge are seen. The gallbladder wall is minimally thickened at 3.5 mm. No specific pericholecystic fluid is seen. The sonographic Ware sign is negative. There is no biliary dilatation, the common bile duct measures 4-5 mm. This study is limited by body habitus. IMPRESSION: Minimal gallbladder wall thickening, without additional sonographic signs of cholecystitis. Prominent, fatty liver. Dictated by: Arthur Moreno M.D. on 03/26/2020 at 8:36 Approved by: Arthur Moreno M.D. on 03/26/2020 at 8:37
--- NOTE | 2020-03-26 08:12 | DI.RAD.S_ITS ---
PROCEDURE: XR CHEST 1V INDICATIONS: chest pain TECHNIQUE: One view of the chest was acquired. COMPARISON: [facility], US, US ABDOMEN LIMITED, 05/15/2019, 9:54. [facility], , XR CHEST 1V, 06/08/2018, 9:57. [facility], , CHEST 1 VIEW, 02/27/2017, 14:52. [facility], , XR CHEST 1V, 05/15/2019, 9:39. FINDINGS: Surgical changes and devices: Post CABG changes are seen. Lungs and pleura: On this semiupright portable chest examination, no large pneumothorax or large pleural effusions are seen. No focal infiltrates are seen. Low lung volumes are noted. This causes a crowded appearance to the lung markings and limits evaluation. Mediastinum: The cardiac contours are within normal limits. The aorta demonstrates calcification and tortuosity. Bones and chest wall: Age-appropriate bony degenerative changes are seen. No suspicious bony lesions. Splenic calcification can be seen. IMPRESSION: Limited portable chest examination, without a significant cardiopulmonary abnormality identified. Post CABG changes. Splenic calcification. Dictated by: Arthur Moreno M.D. on 03/26/2020 at 7:36 Approved by: Arthur Moreno M.D. on 03/26/2020 at 7:37
--- NOTE | 2020-03-26 08:13 | ED.ABDPAIN ---
HPI - Abdominal Pain General Chief Complaint: Abdominal Pain Stated Complaint: severe abdomen pain Time Seen by Provider: 03/26/20 08:11 Source: patient Mode of arrival: Ambulatory Limitations: no limitations History of Present Illness HPI narrative: Patient is a 64-year-old male who presents with sudden-onset right upper quadrant pain started immediately after he ate eggs for breakfast. He states he has had pancreatitis twice they cannot figure out why he denies any alcohol use and he still has his gallbladder. He denies feeling nauseous he has no chest pain the pain does not radiate to his shoulder he was doing well when he got up this morning and last evening. MD complaint: abdominal pain Onset (ago): hour(s) Pain Consistency: constant Location: RUQ Severity: severe Quality: stabbing Radiation: none Migration to: no migration Relieving factors: other (Belching) Exacerbating factors: nothing Related Data Home Medications Medication Instructions Recorded Confirmed aspirin 81 mg PO QAM #0 09/22/03 05/15/19 atorvastatin 80 mg PO BEDTIME #0 02/27/17 05/15/19 cholecalciferol (vitamin D3) 1,000 unit PO QAM 06/08/18 05/15/19 lisinopril 40 mg PO BEDTIME 06/08/18 05/15/19 potassium chloride 10 meq PO QAM 06/08/18 05/15/19 furosemide 40 mg PO QAM 05/15/19 05/15/19 metoprolol succinate 100 mg PO QAM 05/15/19 05/15/19 Previous Rx's Medication Instructions Recorded hydrocodone-acetaminophen [[place]] 1 tab PO Q4-6H PRN #10 tab 03/26/20 Allergies Allergy/AdvReac Type Severity Reaction Status Date / Time codeine [CODEINE] Allergy Unknown Verified 05/19/19 09:28 Review of Systems Review of Systems Narrative: GENERAL: Denies chills, fatigue, malaise, fever, sweats, travel HEENT: Denies sinus pain, ear pain, sore throat, difficulty swallowing, neck pain RESPIRATORY: Denies dyspnea, cough, wheezing, hemoptysis, sputum. CARDIOVASCULAR: Denies chest pain, palpitations, orthopnea, edema GASTROINTESTINAL: See HPI : Denies dysuria, frequency, incontinence, hematuria, urinary retention, flank pain. MUSCULOSKELETAL: Denies weakness, joint pain, or bony pain SKIN: No rash, no erythema, no pruritus NEUROLOGIC: Denies weakness, dizziness, headache, numbness, change in speech, confusion PSYCHIATRIC: No concerning psychosocial issues. 12 point review of systems is negative except for those stated above and HPI Patient History Medical History Dyslipidemia (Acute) GERD (gastroesophageal reflux disease) (Acute) Hypertension (Acute) Prediabetes (Acute) Surgical History S/P CABG x 3 (Acute) Family History Mother No problems noted. Father No problems noted. Social History household members: other Smoking Status: Never smoker alcohol intake: never substance use type: does not use Smoking Status: Never smoker alcohol intake frequency: 0-2 drinks per day Substance Use Type: does not use Exam Initial Vital Signs Initial Vital Signs: Vital Signs Temperature 96.1 F L 03/26/20 08:01 Pulse Rate 58 L 03/26/20 08:01 Respiratory Rate 20 03/26/20 08:01 Blood Pressure 191/79 H 03/26/20 08:01 Pulse Oximetry 97 03/26/20 08:01 GENERAL: Well-appearing, well-nourished and in no acute distress. HEENT: Head atraumatic,EOMI, pupils reactive, face symmetric, moist mucous membranes CARDIOVASCULAR: Regular rate and rhythm without murmurs, rubs or gallops. RESPIRATORY: Breath sounds equal bilaterally, no wheezes rales or rhonchi. ABDOMEN: Soft, tender right upper quadrant positive Ware sign EXTREMITIES: Normal range of motion, no clubbing or edema. Neurovascularly intact NEUROLOGICAL: Alert and oriented x4.Normal gait and speech. SKIN: Warm, dry, no laceration, no petechiae, no rashes or lesions. Course Orders Ordered: ED Orders 03/26/20 08:11 US abdomen limited Stat 03/26/20 08:12 XR chest 1V Stat 03/26/20 08:13 Complete Blood Count AUTO DIFF Stat Comprehensive Metabolic Panel Stat Lipase Stat Troponin & CK Cardiac Panel Stat Discontinued Medications Sodium Chloride (Normal Saline 0.9%) 1,000 mls @ 150 mls/hr IV CONT NESHA Last Infusion: 03/26/20 11:00 Dose: 150 mls/hr Documented by: Admin: 03/26/20 08:18 Dose: 150 mls/hr Documented by: ZAINAB Ketorolac Tromethamine (Toradol) 30 mg IV NOW ONE Stop: 03/26/20 08:12 Last Admin: 03/26/20 08:18 Dose: 30 mg Documented by: ZAINAB Morphine Sulfate (Morphine) 2 mg IV NOW ONE Stop: 03/26/20 08:35 Last Admin: 03/26/20 08:39 Dose: 2 mg Documented by: ZAINAB Morphine Sulfate (Morphine) 2 mg IV NOW ONE Stop: 03/26/20 10:02 Last Admin: 03/26/20 10:11 Dose: 2 mg Documented by: ZAINAB Ondansetron HCl (Zofran) 4 mg IV NOW ONE Stop: 03/26/20 08:35 Last Admin: 03/26/20 08:39 Dose: 4 mg Documented by: ZAINAB Vital Signs Vital signs: Vital Signs - 8 hr 03/26/20 08:01 03/26/20 08:43 03/26/20 10:48 Temperature 96.1 F L Pulse Rate 58 L 52 L 51 L Respiratory Rate 20 18 20 Blood Pressure 191/79 H 125/62 112/56 L Pulse Oximetry 97 96 MDM - Abdominal Pain Lab Data Attestation: I reviewed the patient's lab results. Result diagrams: 03/26/20 08:13 03/26/20 08:13 Labs: Lab Results 03/26/20 03/26/20 Range/Units 08:13 08:13 WBC 11.8 H (4.5-11.0) X10^3/uL RBC 6.00 H (4.5-5.9) X10^6/uL Hgb 17.6 H (13.5-17.5) g/dL Hct 52.6 (41-53) % MCV 87.6 (80-100) fL MCH 29.4 (26-34) PG MCHC 33.5 (30-36) % RDW 13.8 (11.6-14.8) % Plt Count 135 L (150-400) X10^3/uL Neut % (Auto) 48.4 L (50-75) % Lymph % (Auto) 36.9 (25-40) % [place] % (Auto) 11.4 (3-14) % Eos % (Auto) 2.7 (2-4) % Baso % (Auto) 0.6 (0-2) % Neut # (Auto) 5700 (4859-2835) /uL Lymph # (Auto) 4400 (9707-9614) /uL [place] # (Auto) 1300 H (0-900) /uL Eos # (Auto) 300 (0-450) /uL Baso # (Auto) 100 (0-100) /uL Sodium 137 (137-145) mmol/L Potassium 5.1 (3.4-5.1) mmol/L Chloride 106 (98-107) mmol/L Carbon Dioxide 23 (22-32) mmol/L BUN 18 (9-20) mg/dL Creatinine 0.99 (0.66-1.25) mg/dL Estimated GFR > 60.0 (>60) mL/min BUN/Creatinine Ratio 18.2 (6-22) Glucose 136 H (80-110) mg/dL Calcium 9.2 (8.4-10.2) mg/dL Total Bilirubin 1.4 H (0.2-1.3) mg/dL AST 115 H (17-59) IU/L ALT 86 H (<50) IU/L Alkaline Phosphatase 77 (38-126) U/L Total Creatine Kinase 117 (55-170) U/L CK-MB (CK-2) 3.13 H (<2.37) ng/mL CK-MB (CK-2) Rel Index 2.7 (1.5-5.0) % Troponin I < 0.012 (0.01-0.034) ng/mL Total Protein 7.6 (6.3-8.2) g/dL Albumin 4.3 (3.5-5.0) g/dL Globulin 3.3 (1.7-4.1) g/dL Albumin/Globulin Ratio 1.3 (1.0-2.8) Lipase 154 (23-300) U/L Imaging Data US - abdomen: Radiologist's Impression: PROCEDURE: US ABDOMEN LIMITED INDICATIONS: ruq pain TECHNIQUE: Real-time focused scanning was performed of the abdomen, with image documentation. COMPARISON: [facility], US, US ABDOMEN LIMITED, 05/15/2019, 9:54. FINDINGS: The liver demonstrates prominent size. The liver demonstrates generalized moderately increased echogenicity. This decreases ultrasound sensitivity for detection of hepatic masses. No findings of gallstones or sludge are seen. The gallbladder wall is minimally thickened at 3.5 mm. No specific pericholecystic fluid is seen. The sonographic Ware sign is negative. There is no biliary dilatation, the common bile duct measures 4-5 mm. This study is limited by body habitus. IMPRESSION: Minimal gallbladder wall thickening, without additional sonographic signs of cholecystitis. Prominent, fatty liver. Dictated by: Arthur Moreno M.D. on 03/26/2020 at 8:36 Chest x-ray: Radiologist's Impression: PROCEDURE: XR CHEST 1V INDICATIONS: chest pain TECHNIQUE: One view of the chest was acquired. COMPARISON: [facility], [place], US ABDOMEN LIMITED, 05/15/2019, 9:54. [facility], CR, XR CHEST 1V, 06/08/2018, 9:57. [facility], CR, CHEST 1 VIEW, 02/27/2017, 14:52. [facility], CR, XR CHEST 1V, 05/15/2019, 9:39. FINDINGS: Surgical changes and devices: Post CABG changes are seen. Lungs and pleura: On this semiupright portable chest examination, no large pneumothorax or large pleural effusions are seen. No focal infiltrates are seen. Low lung volumes are noted. This causes a crowded appearance to the lung markings and limits evaluation. Mediastinum: The cardiac contours are within normal limits. The aorta demonstrates calcification and tortuosity. Bones and chest wall: Age-appropriate bony degenerative changes are seen. No suspicious bony lesions. Splenic calcification can be seen. IMPRESSION: Limited portable chest examination, without a significant cardiopulmonary abnormality identified. Post CABG changes. Splenic calcification. Dictated by: Arthur Moreno M.D. on 03/26/2020 at 7:36 ECG Data Attestation: I personally reviewed and interpreted this ECG as follows: Prior ECG tracings: available for review Interpretation: Normal sinus rhythm rate 59 p.r. interval 162 QRS [address] changes similar to previous EKG MDM Narrative Medical decision making narrative: Feeling a little better after morphine and Toradol. He is minimally elevated bilirubin at 1.4 previously 1.2 ultrasound does not show any sludge gallstones or sign of cholecystitis. That he has had similar experience like this in the past. He has no leukocytosis or fever. At this time recommend going home and monitoring. Possible very early signs of cholecystitis just not seen on ultrasound vs biliary colic, I discussed all findings with the patient , Education has been performed regarding treatment plan, diagnosis, warning signs and symptoms and all concerns have been addressed. Verbally agree with and understood all of the above. Discharge Plan Departure Patient Disposition: Home Clinical Impression: Biliary colic Discharge Date/Time: 03/26/20 11:07 Instructions: DI for Biliary Colic Activity Restrictions/Additional Instructions: *You have been diagnosed with biliary colic *What to do: At this time ultrasound does not show any sign of a gallstones or gallbladder disease, this may be very early. I recommend avoiding fatty foods and monitoring at home. There is no sign of pancreatitis today either. *Continue to take medications as directed [place] 1 tablet every 4-6 hours if needed for severe pain---> [facility] [place] Ibuprofen 600 mg every 6 hours if needed for [id number] pain *Follow up with your primary care provider in 2-3 days *Return to ER if you should have fever increasing right upper quadrant pain, persistent vomiting or any new, worsening or concerning symptoms CONTROLLED SUBSTANCE DISCHARGE (Narcotoic/benzodiazepine/Flexeril/Phenergan) 1. You have been prescribed narcotic medications, it does have acetaminophen/Tylenol/paracetamol in it so do not take extra Tylenol or Tylenol containing products TRAMADOL DOES NOT CONTAIN TYLENOL 2. Please understand that we cannot provide further refills of narcotics, benzodiazepines or controlled substances through the ED and her pain management will need to be through your provider. 3. While on these medications you cannot drive or operate heavy machinery. 4. You cannot sign legal documents or perform any duties such as this. 5. As long as you're taking opiate pain medications he should also be taking a stool softener such as Colace, Dulcolax, MiraLAX or prune juice, to help avoid constipation. Prescriptions: New hydrocodone-acetaminophen [[place]] 5-325 mg tablet 1 tab PO Q4-6H PRN (Reason: pain) Qty: 10 RF: 0 No Action aspirin 81 MG tablet,delayed release (DR/EC) 81 mg PO QAM Qty: 0 RF: 0 atorvastatin 80 MG tablet 80 mg PO BEDTIME Qty: 0 RF: 0 potassium chloride 10 mEq tablet extended release 10 meq PO QAM RF: 0 lisinopril 40 mg tablet 40 mg PO BEDTIME RF: 0 cholecalciferol (vitamin D3) 1,000 unit tablet 1,000 unit PO QAM RF: 0 metoprolol succinate 100 mg tablet extended release 24 hr 100 mg PO QAM RF: 0 furosemide 40 mg tablet 40 mg PO QAM RF: 0 Referrals: Shelia Mathew MD [Primary Care Provider] -
[2020-03-26] MEDS: SODIUM CHLORIDE 0.9% 1,000 ML 150 ML IV (08:18)
[2020-03-26] MEDS: KETOROLAC 60 MG/2 ML VIAL 30 MG IV (08:18)
[2020-03-26 08:19] LABS: Add Manual Diff / Slide Review NO; Basophils Absolute Auto 100 /uL (0-100); Basophils Percent Auto 0.6 % (0-2); Eosinophils Absolute Auto 300 /uL (0-450); Eosinophils Percent Auto 2.7 % (2-4); Hematocrit 52.6 % (41-53); Hemoglobin 17.6 g/dL (13.5-17.5); Lymphocytes Absolute Auto 4400 /uL (1100-4500); Lymphocytes Percent Auto 36.9 % (25-40); Mean Corpuscular HGB Conc 33.5 % (30-36); Mean Corpuscular Hemoglobin 29.4 PG (26-34); Mean Corpuscular Volume 87.6 fL (80-100); Monocytes Absolute Auto 1300 /uL (0-900); Monocytes Percent Auto 11.4 % (3-14); Neutrophils Absolute Auto 5700 /uL (1500-7000); Neutrophils Percent Auto 48.4 % (50-75); Platelet Count 135 X10^3/uL (150-400); Red Cell Distribution Width 13.8 % (11.6-14.8); White Blood Cell Count 11.8 X10^3/uL (4.5-11.0)
[2020-03-26 08:31] LABS: Alanine Aminotransferase 86 IU/L (<50); Albumin 4.3 g/dL (3.5-5.0); Albumin Globulin Ratio 1.3 (1.0-2.8); Alkaline Phosphatase 77 U/L (38-126); Aspartate Aminotransferase 115 IU/L (17-59); BUN Creatinine Ratio 18.2 (6-22); Bilirubin Total 1.4 mg/dL (0.2-1.3); Blood Urea Nitrogen 18 mg/dL (9-20); Calcium 9.2 mg/dL (8.4-10.2); Carbon Dioxide 23 mmol/L (22-32); Chloride 106 mmol/L (98-107); Creatine Kinase 117 U/L (55-170); Estimated Glomerular Filt Rate > 60.0 mL/min (>60); Globulin 3.3 g/dL (1.7-4.1); Glucose 136 mg/dL (80-110); Lipase 154 U/L (23-300); Potassium 5.1 mmol/L (3.4-5.1); Sodium 137 mmol/L (137-145); Total Protein 7.6 g/dL (6.3-8.2)
[2020-03-26] MEDS: MORPHINE 2 MG/ML INJ IV ×2 (08:39→10:11)
[2020-03-26] MEDS: ONDANSETRON 4 MG/2 ML INJ IV (08:39)
[2020-03-26 08:43] VITALS: BP 125/62; PULSE 52; RESP 18
[2020-03-26 08:43] LABS: Troponin I < 0.012 ng/mL (0.01-0.034)
[2020-03-26 09:10] LABS: CKMB % Relative Index 2.7 % (1.5-5.0); Creatine Kinase MB 3.13 ng/mL (<2.37); HEMOLYSIS < 15 (0-50)
[2020-03-26 10:48] VITALS: BP 112/56; PULSE 51; RESP 20; O2SAT 96
== END 2020-03-26 11:07 | disposition home or self-care (01) ==
PROVIDERS: Emergency Provider Emergency Medicine; PCP Family Medicine
DX: K80.50 Calculus of bile duct without cholangitis or cholecystitis without obstruction (principal); R07.9 Chest pain, unspecified
CPT/HCPCS: 71045; 76705; 80053; 82550; 82553; 83690; 84484; 85025; 93005; 96361; 96374; 96375; 96376; 99284; J1885; J2270; J2405

== ENCOUNTER 2021-07-18 22:18 | Emergency (ER) | payer MEDICARE, MEDICAID, SELFPAY ==
[2019-05-15 13:13] VITALS: BMI 36.8
[2021-07-18 22:41] VITALS: BP 224/92; PULSE 62; RESP 17; TEMP 36.4; O2SAT 96; BMI 36.9
[2021-07-18 22:49] LABS: Add Manual Diff / Slide Review NO; Basophils Absolute Auto 100 /uL (0-100); Basophils Percent Auto 0.6 % (0-2); Eosinophils Absolute Auto 300 /uL (0-450); Eosinophils Percent Auto 2.4 % (2-4); Hematocrit 47.4 % (41-53); Hemoglobin 15.8 g/dL (13.5-17.5); Lymphocytes Absolute Auto 4400 /uL (1100-4500); Lymphocytes Percent Auto 38.3 % (25-40); Mean Corpuscular HGB Conc 33.4 % (30-36); Mean Corpuscular Hemoglobin 29.1 PG (26-34); Mean Corpuscular Volume 87.1 fL (80-100); Monocytes Absolute Auto 1300 /uL (0-900); Monocytes Percent Auto 11.7 % (3-14); Neutrophils Absolute Auto 5300 /uL (1500-7000); Platelet Count 159 X10^3/uL (150-400); Red Blood Cell Count 5.44 X10^6/uL (4.5-5.9); Red Cell Distribution Width 13.9 % (11.6-14.8); White Blood Cell Count 11.4 X10^3/uL (4.5-11.0)
[2021-07-18 22:53] LABS: Alanine Aminotransferase 67 IU/L (<50); Albumin 4.3 g/dL (3.5-5.0); Albumin Globulin Ratio 1.3 (1.0-2.8); Alkaline Phosphatase 105 U/L (38-126); Aspartate Aminotransferase 99 IU/L (17-59); Bilirubin Total 0.9 mg/dL (0.2-1.3); Blood Urea Nitrogen 16 mg/dL (9-20); Calcium 8.7 mg/dL (8.4-10.2); Carbon Dioxide 30 mmol/L (22-32); Chloride 100 mmol/L (98-107); Estimated Glomerular Filt Rate > 60.0 mL/min (>60); Globulin 3.3 g/dL (1.7-4.1); Glucose 169 mg/dL (80-110); Lipase 114 U/L (23-300); Sodium 135 mmol/L (137-145); Total Protein 7.6 g/dL (6.3-8.2)
[2021-07-18 22:58] LABS: HEMOLYSIS 60 (0-50)
[2021-07-18 22:59] LABS: Potassium 3.8 mmol/L (3.4-5.1)
--- NOTE | 2021-07-18 23:39 | DI.US.S_ITS ---
PROCEDURE: US ABDOMEN LIMITED INDICATIONS: RIGHT UPPER QUARANT PAIN TECHNIQUE: Real-time focused scanning was performed of the abdomen, with image documentation. COMPARISON: [facility]ed With [facility], , US ABDOMEN LIMITED, 03/26/2020, 10:07. FINDINGS: Marked diffuse increased echogenicity of the liver is consistent with probable severe fatty change. There are numerous tiny gallstones in the gallbladder. No gallbladder wall thickening. No pain on examination. No fluid around the gallbladder. Borderline dilatation of common bile duct measuring 7.6 mm. IMPRESSION: 1. Findings suggests probable severe diffuse hepatic steatosis. 2. Multiple small gallstones. 3. Borderline dilatation of common bile duct. Dictated by: Ruddy Bates M.D. on 07/19/2021 at 0:37 Approved by: Ruddy Bates M.D. on 07/19/2021 at 0:41
[2021-07-18] MEDS: ONDANSETRON 4 MG/2 ML INJ IV (23:55)
[2021-07-18] MEDS: KETOROLAC 30 MG/ML VIAL IV (23:55)
[2021-07-18 23:56] VITALS: BP 147/67; PULSE 67; RESP 17; O2SAT 98
--- NOTE | 2021-07-18 23:59 | PC.NURSE ---
Patient reports pain suddenly decreased form an 8/10 to a 2/10 about ten minutes before I gave him the toradol.
[2021-07-19 00:24] VITALS: PULSE 64; O2SAT 96
[2021-07-19 00:30] VITALS: PULSE 49; O2SAT 97
[2021-07-19 01:00] VITALS: PULSE 49; O2SAT 94
[2021-07-19 01:02] VITALS: BP 123/64; PULSE 54; O2SAT 96
--- NOTE | 2021-07-19 01:20 | ED_ITS ---
HPI - Abdominal Pain General Chief Complaint: Abdominal Pain Stated Complaint: SEVERE ABD. PAIN Time Seen by Provider: 07/18/21 23:39 Source: patient Mode of arrival: Ambulatory History of Present Illness HPI narrative: Male history of coronary artery disease and prior pancreatitis presenting today with sudden onset of epigastric pain and nausea. He denies any chest pain or shortness of breath he was previously feeling well. Try needles for dinner. Is now after being in the emergency department for several hours pain has completely resolved. He denies any fever or chills or any other symptoms. Related Data Home Medications Medication Instructions Recorded Confirmed aspirin 81 mg tablet,delayed 81 mg PO QAM #0 09/22/03 05/15/19 release atorvastatin 80 mg tablet 80 mg PO BEDTIME #0 02/27/17 05/15/19 cholecalciferol (vitamin D3) 25 1,000 unit PO QAM 06/08/18 05/15/19 mcg (1,000 unit) tablet lisinopril 40 mg tablet 40 mg PO BEDTIME 06/08/18 05/15/19 potassium chloride 10 mEq 10 meq PO QAM 06/08/18 05/15/19 tablet,extended release furosemide 40 mg tablet 40 mg PO QAM 05/15/19 05/15/19 metoprolol succinate 100 mg 100 mg PO QAM 05/15/19 05/15/19 tablet,extended release 24 hr Previous Rx's Medication Instructions Recorded hydrocodone 5 mg-acetaminophen 325 1 tab PO Q4-6H PRN #10 tab 03/26/20 mg tablet (Taylor) Allergies Allergy/AdvReac Type Severity Reaction Status Date / Time codeine [CODEINE] Allergy Unknown Nausea Verified 07/18/21 22:43 Review of Systems Review of Systems Narrative: GENERAL: Denies chills, fatigue, malaise, fever, sweats, travel HEENT: Denies sinus pain, ear pain, sore throat, difficulty swallowing, neck pain RESPIRATORY: Denies dyspnea, cough, wheezing, hemoptysis, sputum. CARDIOVASCULAR: Denies chest pain, palpitations, orthopnea, edema GASTROINTESTINAL: See HPI : Denies dysuria, frequency, incontinence, hematuria, urinary retention, flank pain. MUSCULOSKELETAL: Denies weakness, joint pain, or bony pain SKIN: No rash, no erythema, no pruritus NEUROLOGIC: Denies weakness, dizziness, headache, numbness, change in speech, confusion PSYCHIATRIC: No concerning psychosocial issues. 12 point review of systems is negative except for those stated above and HPI Patient History Medical History (Updated 07/19/21 @ 01:41 by Ioana Poe DO) Dyslipidemia GERD (gastroesophageal reflux disease) Hypertension Prediabetes Surgical History S/P CABG x 3 Family History Mother No problems noted. Father No problems noted. Social History household members: other Smoking Status: Never smoker alcohol intake: never substance use type: does not use Smoking Status: Never smoker alcohol intake frequency: 0-2 drinks per day Substance Use Type: does not use Exam Initial Vital Signs Initial Vital Signs: Vital Signs Temperature 97.5 F L 07/18/21 22:41 Pulse Rate 62 07/18/21 22:41 Respiratory Rate 17 07/18/21 22:41 Blood Pressure 224/92 H 07/18/21 22:41 Pulse Oximetry 96 07/18/21 22:41 GENERAL: Alert well-appearing [id number] in no acute distress. HEENT: Head atraumatic,EOMI, pupils reactive, face symmetric, moist mucous membranes CARDIOVASCULAR: Regular rate and rhythm without murmurs, rubs or gallops. RESPIRATORY: Breath sounds equal bilaterally, no wheezes rales or rhonchi. ABDOMEN: Soft, nontender. Normoactive bowel sounds all 4 quadrants. No guarding or rebound. Mild incisional hernia felt that is reducible, negative Ware sign EXTREMITIES: Normal range of motion, no clubbing or edema. Neurovascularly intact NEUROLOGICAL: Alert and oriented x4 SKIN: Warm, dry, no laceration, no petechiae, no rashes or lesions. Course Orders Ordered: ED Orders 07/18/21 22:35 Complete Blood Count AUTO DIFF Stat Comprehensive Metabolic Panel Stat Lipase Stat 07/18/21 22:41 EKG-12 Lead Stat 07/18/21 23:39 US abdomen limited Stat Discontinued Medications Ketorolac Tromethamine (Ketorolac 30 Mg/Ml Vial) 30 mg IV NOW ONE Stop: 07/18/21 23:40 Last Admin: 07/18/21 23:55 Dose: 30 mg Documented by: SHYANNE Morphine Sulfate (Morphine 4 Mg/Ml Inj) 4 mg IV NOW ONE Stop: 07/18/21 23:40 Last Admin: 07/18/21 23:58 Dose: Not Given Documented by: SHYANNE Ondansetron HCl (Ondansetron 4 Mg/2 Ml Inj) 4 mg IV NOW ONE Stop: 07/18/21 23:40 Last Admin: 07/18/21 23:55 Dose: 4 mg Documented by: SHYANNE Vital Signs Vital signs: Vital Signs - 8 hr 07/18/21 22:41 07/18/21 23:56 07/19/21 00:24 Temperature 97.5 F L Pulse Rate 62 67 64 Respiratory Rate 17 17 Blood Pressure 224/92 H 147/67 H Pulse Oximetry 96 98 96 07/19/21 00:30 07/19/21 01:00 07/19/21 01:02 Temperature Pulse Rate 49 L 49 L 54 L Respiratory Rate Blood Pressure 123/64 Pulse Oximetry 97 94 96 07/19/21 02:03 07/19/21 02:04 Temperature Pulse Rate 55 L Respiratory Rate Blood Pressure 123/64 Pulse Oximetry MDM - Abdominal Pain Lab Data Result diagrams: 07/18/21 22:35 07/18/21 22:35 Labs: Lab Results 07/18/21 07/18/21 Range/Units 22:35 22:35 WBC 11.4 H (4.5-11.0) X10^3/uL RBC 5.44 (4.5-5.9) X10^6/uL Hgb 15.8 (13.5-17.5) g/dL Hct 47.4 (41-53) % MCV 87.1 (80-100) fL MCH 29.1 (26-34) PG MCHC 33.4 (30-36) % RDW 13.9 (11.6-14.8) % Plt Count 159 (150-400) X10^3/uL Neut % (Auto) 47.0 L (50-75) % Lymph % (Auto) 38.3 (25-40) % [place] % (Auto) 11.7 (3-14) % Eos % (Auto) 2.4 (2-4) % Baso % (Auto) 0.6 (0-2) % Neut # (Auto) 5300 (5981-6417) /uL Lymph # (Auto) 4400 (6013-0349) /uL [place] # (Auto) 1300 H (0-900) /uL Eos # (Auto) 300 (0-450) /uL Baso # (Auto) 100 (0-100) /uL Sodium 135 L (137-145) mmol/L Potassium 3.8 (3.4-5.1) mmol/L Chloride 100 (98-107) mmol/L Carbon Dioxide 30 (22-32) mmol/L BUN 16 (9-20) mg/dL Creatinine 1.00 (0.66-1.25) mg/dL Estimated GFR > 60.0 (>60) mL/min BUN/Creatinine Ratio 16.0 (6-22) Glucose 169 H (80-110) mg/dL Calcium 8.7 (8.4-10.2) mg/dL Total Bilirubin 0.9 (0.2-1.3) mg/dL AST 99 H (17-59) IU/L ALT 67 H (<50) IU/L Alkaline Phosphatase 105 (38-126) U/L Total Protein 7.6 (6.3-8.2) g/dL Albumin 4.3 (3.5-5.0) g/dL Globulin 3.3 (1.7-4.1) g/dL Albumin/Globulin Ratio 1.3 (1.0-2.8) Lipase 114 (23-300) U/L Imaging Data US - abdomen: Radiologist's Impression: PROCEDURE: US ABDOMEN LIMITED ? INDICATIONS:? RIGHT UPPER QUARANT PAIN ? TECHNIQUE:? Real-time focused scanning was performed of the abdomen, with image documentation.? ? COMPARISON:? [facility], , US ABDOMEN LIMITED, 03/26/2020, 10:07. ? FINDINGS:? Marked diffuse increased echogenicity of the liver is consistent with probable severe fatty change. ? There are numerous tiny gallstones in the gallbladder.? No gallbladder wall thickening.? No pain on examination.? No fluid around the gallbladder. ? Borderline dilatation of common bile duct measuring 7.6 mm. ? IMPRESSION:? ? 1. Findings suggests probable severe diffuse hepatic steatosis. ? 2. Multiple small gallstones. ? 3. Borderline dilatation of common bile duct.? ? ? Dictated by: Ruddy Bates M.D. on 07/19/2021 at 0:37 ? ? ECG Data Interpretation: Normal sinus rhythm rate 48 UT interval 164 QRS 90 no changes or T-wave inversions MDM Narrative Medical decision making narrative: Patient had sudden onset epigastric pain similar to previous episodes of pancreatitis. He has found it not to have pancreatitis is noted multiple tiny gallstones. Common bile duct is noted to be slightly more enlarged and . Case was discussed with surgery at this time no need for emergent intervention ultrasounds stains 7.6 previously 4-5. 7.6 is the higher end of normal however he has a normal bilirubin in fact significantly improved bilirubin from previous blood work. AST ALT noted to improved but still elevated. Patient has not been in any sort of distress at all. Not needing any sort of medication. Overall feels well. 0130 Dr. Costa raya symptoms and test results agrees with outpatient treatment and management. Aware of common bile duct size and cholelithiasis Discharge Plan Departure Patient Disposition: Home Clinical Impression: Cholelithiasis Instructions: DI for Gallstones Activity Restrictions/Additional Instructions: *You have been diagnosed with gallstones *What to do: He will likely need to have her gallbladder removed however it is not emergent at this time. Please continue to monitor for worsening symptoms *Continue to take medications as directed *Follow up with your primary care provider in 2-3 days or call [phone] Dr. Costa, surgery, call tomorrow to schedule follow-up appointment *Return to ER if you should have increasing pain, vomiting, fever or any new, worsening or concerning symptoms Prescriptions: No Action aspirin 81 MG tablet,delayed release (/EC) 81 mg PO QAM Qty: 0 0RF atorvastatin 80 MG tablet 80 mg PO BEDTIME Qty: 0 0RF potassium chloride 10 mEq tablet extended release 10 meq PO QAM 0RF lisinopril 40 mg tablet 40 mg PO BEDTIME 0RF cholecalciferol (vitamin D3) 1,000 unit tablet 1,000 unit PO QAM 0RF metoprolol succinate 100 mg tablet extended release 24 hr 100 mg PO QAM 0RF furosemide 40 mg tablet 40 mg PO QAM 0RF Label Comments: take 1 tablet by mouth once daily hydrocodone-acetaminophen [[place]] 5-325 mg tablet 1 tab PO Q4-6H PRN (Reason: pain) Qty: 10 0RF Referrals: Shelia Mathew MD [Primary Care Provider] - Leslie Costa MD [Physician] -
[2021-07-19 02:03] VITALS: BP 123/64
[2021-07-19 02:04] VITALS: PULSE 55
== END 2021-07-19 02:05 | disposition home or self-care (01) ==
PROVIDERS: Emergency Provider Emergency Medicine; PCP Family Medicine
DX: K80.20 Calculus of gallbladder without cholecystitis without obstruction (principal); Z88.5 Allergy status to narcotic agent
CPT/HCPCS: 36415; 76705; 80053; 83690; 85025; 93005; 96374; 96375; 99284; J1885; J2405

== ENCOUNTER 2022-06-27 08:36 | Emergency (ER) | payer MEDICARE, MEDICAID, SELFPAY ==
[2019-05-15 13:13] VITALS: BMI 36.8
[2022-06-27] VITALS (9 sets, daily range): BP systolic 119–182; BP diastolic 59–76; PULSE 52–58; RESP 15–24; TEMP 35.1–36.8; O2SAT 96–99; BMI 33.2
[2022-06-27 09:20] LABS: Add Manual Diff / Slide Review NO; Basophils Absolute Auto 0 /uL (0-100); Basophils Percent Auto 0.4 % (0-2); Eosinophils Absolute Auto 200 /uL (0-450); Eosinophils Percent Auto 2.5 % (2-4); Hematocrit 47.1 % (41-53); Lymphocytes Absolute Auto 3300 /uL (1100-4500); Lymphocytes Percent Auto 34.5 % (25-40); Mean Corpuscular HGB Conc 33.9 % (30-36); Mean Corpuscular Hemoglobin 29.4 PG (26-34); Mean Corpuscular Volume 86.7 fL (80-100); Monocytes Absolute Auto 1200 /uL (0-900); Monocytes Percent Auto 12.2 % (3-14); Neutrophils Absolute Auto 4800 /uL (1500-7000); Neutrophils Percent Auto 50.4 % (50-75); Platelet Count 135 X10^3/uL (150-400); Red Blood Cell Count 5.43 X10^6/uL (4.5-5.9); Red Cell Distribution Width 13.4 % (11.6-14.8); White Blood Cell Count 9.6 X10^3/uL (4.5-11.0)
[2022-06-27 09:31] LABS: Alanine Aminotransferase 57 IU/L (<50); Albumin 4.1 g/dL (3.5-5.0); Albumin Globulin Ratio 1.4 (1.0-2.8); Alkaline Phosphatase 72 U/L (38-126); Aspartate Aminotransferase 85 IU/L (17-59); BUN Creatinine Ratio 12.7 (6-22); Bilirubin Total 1.4 mg/dL (0.2-1.3); Blood Urea Nitrogen 14 mg/dL (9-20); Calcium 8.7 mg/dL (8.4-10.2); Carbon Dioxide 27 mmol/L (22-32); Chloride 100 mmol/L (98-107); Estimated Glomerular Filt Rate > 60 mL/min (>60); Glucose 172 mg/dL (80-110); HEMOLYSIS 17 (0-50); Lipase 234 U/L (23-300); Sodium 135 mmol/L (137-145); Total Protein 7.1 g/dL (6.3-8.2)
--- NOTE | 2022-06-27 10:01 | ED_ITS ---
HPI - Abdominal Pain General Chief Complaint: Abdominal Pain Stated Complaint: severe abd pain Time Seen by Provider: 06/27/22 09:59 Source: patient Mode of arrival: Ambulatory Limitations: no limitations History of Present Illness HPI narrative: This is a 66-year-old male with history of three-vessel CABG, dyslipidemia hypertension on aspirin daily with complaint of epigastric abdominal pain. Patient states he was eating breakfast this morning when he had sudden onset of epigastric pain he states does not radiate to his chest neck or back but does go down towards his belly. Denies any syncope. No fevers or chills. No nausea or vomiting. No diarrhea constipation, dysuria urgency or frequency. Was about a 9/10 at its maximum it is now 4/10 prior to any pain medications. He states feels very similar to when he had gallstones about a year ago. Patient states he never followed up or had any other interventions. He denies any surgery other than his CABG. Allergic to codeine makes him nauseated. No tobacco, alcohol or illicit. His primary care is Dr. Mathew. 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 Related Data Home Medications Medication Instructions Recorded Confirmed aspirin 81 mg tablet,delayed 81 mg PO QAM ##0 09/22/03 05/15/19 release atorvastatin 80 mg tablet 80 mg PO BEDTIME ##0 02/27/17 05/15/19 cholecalciferol (vitamin D3) 25 1,000 unit PO QAM 06/08/18 05/15/19 mcg (1,000 unit) tablet lisinopril 40 mg tablet 40 mg PO BEDTIME 06/08/18 05/15/19 potassium chloride 10 mEq 10 meq PO QAM 06/08/18 05/15/19 tablet,extended release furosemide 40 mg tablet 40 mg PO QAM 05/15/19 05/15/19 metoprolol succinate 100 mg 100 mg PO QAM 05/15/19 05/15/19 tablet,extended release 24 hr Previous Rx's Medication Instructions Recorded hydrocodone 5 mg-acetaminophen 325 1 tab PO Q4-6H PRN pain #10 tabs 03/26/ mg tablet ([place]) tramadol 50 mg tablet 50 mg PO Q6H PRN pain #10 tabs 06/27/22 Allergies Allergy/AdvReac Type Severity Reaction Status Date / Time codeine [CODEINE] Allergy Unknown Nausea Verified 06/27/22 08:52 Review of Systems Review of Systems ROS Unobtainable: All systems reviewed & are unremarkable except as noted in HPI and below Patient History Medical History (Updated 06/27/22 @ 12:26 by Alexandra Banda DO) Dyslipidemia GERD (gastroesophageal reflux disease) Hypertension Prediabetes Surgical History S/P CABG x 3 Family History Mother No problems noted. Father No problems noted. Social History household members: other Smoking Status: Never smoker alcohol intake: never substance use type: does not use Smoking Status: Never smoker alcohol intake frequency: 0-2 drinks per day Substance Use Type: does not use Exam Narrative Exam Narrative: GENERAL: Alert and oriented x three, mild distress. HEENT: Head normocephalic, atraumatic, EOMI, pupils reactive, face symmetric, moist mucous membranes NECK: Supple, full range of motion CARDIOVASCULAR: Regular rate and rhythm without murmurs, rubs or gallops. RESPIRATORY: Breath sounds equal bilaterally, no wheezes rales or rhonchi. ABDOMEN: Soft, slightly tender epigastric. Normoactive bowel sounds all 4 quadrants. No guarding or rebound, rigidity, no mass, no pulsatile mass or bruit. : No CVA tenderness EXTREMITIES: Normal range of motion, no clubbing or edema. Neurovascularly intact NEUROLOGICAL: Cranial nerves II through XII grossly intact. Moving all extremities SKIN: Warm, dry, no petechiae, no rashes or lesions. Initial Vital Signs Initial Vital Signs: Vital Signs Temperature 95.2 F L 06/27/22 08:52 Pulse Rate 54 L 06/27/22 08:52 Respiratory Rate 24 06/27/22 08:52 Blood Pressure 182/76 H 06/27/22 08:52 Pulse Oximetry 98 06/27/22 08:52 Oxygen Delivery Method 06/27/22 08:52 Course Orders Ordered: ED Orders 06/27/22 10:17 US abdomen limited Stat Discontinued Medications Ketorolac Tromethamine (Ketorolac 30 Mg/Ml Vial) 15 mg IV NOW ONE Stop: 06/27/22 10:19 Last Admin: 06/27/22 10:32 Dose: 15 mg Documented By: KAYLAH Ondansetron HCl (Ondansetron 4 Mg/2 Ml Inj) 4 mg IV NOW PRN PRN Reason: Nausea And Vomiting Vital Signs Vital signs: Vital Signs - 8 hr 06/27/22 11:31 06/27/22 12:26 06/27/22 12:30 Pulse Rate 55 L 52 L 52 L Respiratory Rate 18 19 17 Blood Pressure 127/59 L Pulse Oximetry 99 97 97 Oxygen Delivery Method Room Air 06/27/22 12:31 06/27/22 12:31 06/27/22 13:00 Pulse Rate 53 L Respiratory Rate 15 Blood Pressure 121/59 L 119/68 Pulse Oximetry 96 Oxygen Delivery Method 06/27/22 13:00 Pulse Rate 54 L Respiratory Rate 20 Blood Pressure Pulse Oximetry 98 Oxygen Delivery Method Room Air MDM - Abdominal Pain Lab Data 06/27/22 09:10 06/27/22 09:10 Labs: Lab Results 06/27/22 06/27/22 06/27/22 Range/Units 09:10 09:10 09:10 WBC 9.6 (4.5-11.0) X10^3/uL RBC 5.43 (4.5-5.9) X10^6/uL Hgb 16.0 (13.5-17.5) g/dL Hct 47.1 (41-53) % MCV 86.7 (80-100) fL MCH 29.4 (26-34) PG MCHC 33.9 (30-36) % RDW 13.4 (11.6-14.8) % Plt Count 135 L (150-400) X10^3/uL Neut % (Auto) 50.4 (50-75) % Lymph % (Auto) 34.5 (25-40) % [place] % (Auto) 12.2 (3-14) % Eos % (Auto) 2.5 (2-4) % Baso % (Auto) 0.4 (0-2) % Neut # (Auto) 4800 (9726-5351) /uL Lymph # (Auto) 3300 (9456-7490) /uL [place] # (Auto) 1200 H (0-900) /uL Eos # (Auto) 200 (0-450) /uL Baso # (Auto) 0 (0-100) /uL Sodium 135 L (137-145) mmol/L Potassium 4.0 (3.4-5.1) mmol/L Chloride 100 (98-107) mmol/L Carbon Dioxide 27 (22-32) mmol/L BUN 14 (9-20) mg/dL Creatinine 1.10 (0.66-1.25) mg/dL Estimated GFR > 60 (>60) mL/min BUN/Creatinine Ratio 12.7 (6-22) Glucose 172 H (80-110) mg/dL Calcium 8.7 (8.4-10.2) mg/dL Total Bilirubin 1.4 H (0.2-1.3) mg/dL AST 85 H (17-59) IU/L ALT 57 H (<50) IU/L Alkaline Phosphatase 72 (38-126) U/L Total Creatine Kinase 138 (55-170) U/L CK-MB (CK-2) 4.66 H (<2.37) ng/mL CK-MB (CK-2) Rel Index 3.4 (1.5-5.0) % Troponin I < 0.012 (0.01-0.034) ng/mL Total Protein 7.1 (6.3-8.2) g/dL Albumin 4.1 (3.5-5.0) g/dL Globulin 3.0 (1.7-4.1) g/dL Albumin/Globulin Ratio 1.4 (1.0-2.8) Lipase 234 (23-300) U/L Imaging Data US - abdomen: Radiologist's Impression: [address] [address] Ultrasound Report Signed Patient: Lincoln Lawson MR#: [id number] : 1955 Acct:[id number] Age/Sex: 66 / M Date of Service: 06/27/22 Loc: ED Accession Number: [id number] ?? Procedure: US abdomen limited Ordering Provider: Alexandra Banda D.O. PROCEDURE:? US ABDOMEN LIMITED ? INDICATIONS:? epigastric pain, hx gallstones, elevated lfts ? TECHNIQUE:? Real-time scanning was performed of the abdominal and retroperitoneal organs, with image documentation.? ? COMPARISON:? [facility], US, US ABDOMEN LIMITED, 07/19/2021, 0:08. ? FINDINGS:? ? Liver:? Suboptimal visualization of the left lobe.? Liver measures 15.7 cm in length.? Increased in echogenicity. ? Gallbladder:? Nondilated.? Multiple stones. Normal gallbladder wall thickness. No pericholecystic fluid. Negative sonographic Ware's sign.? ? Biliary ducts:? Intrahepatic bile ducts are non-dilated.? Extrahepatic bile duct caliber measures 4 mm.? Normal is 6-7 mm or less in diameter, or 10 mm or less post-cholecystectomy.? ? Pancreas:? Visualized portions of the pancreas are sonographically normal.? ? IMPRESSION:? 1. No acute cholecystitis demonstrated.? Multiple gallstones.? HIDA scan could be considered for further evaluation. ? 2. Increased hepatic echogenicity most consistent with hepatic steatosis. Other forms of hepatocellular disease could have similar appearance. ? Dictated by: Pelon Welch M.D. on 06/27/2022 at 11:44 ? ? Approved by: Pelon Welch M.D. on 06/27/2022 at 11:46?? ECG Data Attestation: I personally reviewed and interpreted this ECG as follows: Prior ECG tracings: not available for review Interpretation: Patient has prior EKG that shows sinus bradycardia with premature supraven tricular complexes rate of 52, [place] 160 QRS of [address]TC [address] No acute ST elevation or depression noted. [facility] Narrative Medical decision making narrative: This is a 66-year-old male history of CABG, hypertension dyslipidemia and as pirin daily with sudden onset epigastric pain while eating breakfast. Patient is slightly tender epigastric. Labs show normal CBC, platelets with no elevated white count. Glucose is 172 LFTs elevated with a bilirubin of 1.4 AST 85 and ALT is 57 lipase is normal with a normal alk-phos patient had elevation in March of 2020 but had a normal bilirubin at 0.9 on July 18, 2021. Suspect patient has known gallstones are the source of his symptoms. Patient had improvement of his pain. Repeat ultrasound shows patient has multiple gallstones, increased hepatic encephalopathy with consistent with hepatic steatosis. Discharge Plan Departure Patient Disposition: Home Clinical Impression: Gallstones Instructions: DI for Gallstones Activity Restrictions/Additional Instructions: Please follow-up with General surgery for your gallstones. Call to set up an appointment. Referral is included below. You may take Tylenol up to a 1000 mg every 6 hours and/or ibuprofen up to 600 mg every 6 hours. If in adequate you may take 1 tablet of tramadol every 6 hours as needed for pain. This medication can make you sleepy do not drive, perform hazardous activities or make any major decisions while taking it. This medication will make you constipated please take a stool softener once to twice daily until stools are soft and regular. Prescription sent to [facility] in [place]. Please return for fevers, new or worsening abdominal back or flank pain, syncope, persistent vomiting, black or bloody stools or other new or concerning changes. Prescriptions: New tramadol 50 mg tablet 50 mg PO Q6H PRN (Reason: pain) Qty: 10 0RF No Action aspirin 81 MG tablet,delayed release (DR/EC) 81 mg PO QAM Qty: 0 atorvastatin 80 MG tablet 80 mg PO BEDTIME Qty: 0 potassium chloride 10 mEq tablet extended release 10 meq PO QAM lisinopril 40 mg tablet 40 mg PO BEDTIME cholecalciferol (vitamin D3) 1,000 unit tablet 1,000 unit PO QAM metoprolol succinate 100 mg tablet extended release 24 hr 100 mg PO QAM furosemide 40 mg tablet 40 mg PO QAM Label Comments: take 1 tablet by mouth once daily hydrocodone-acetaminophen [[place]] 5-325 mg tablet 1 tab PO Q4-6H PRN (Reason: pain) Qty: 10 0RF Referrals: Shelia Mathew MD [Primary Care Provider] - Manuel Moreira MD [Physician] - Stand Alone Forms: Patient Portal/API
--- NOTE | 2022-06-27 10:17 | DI.US.S_ITS ---
PROCEDURE: US ABDOMEN LIMITED INDICATIONS: epigastric pain, hx gallstones, elevated lfts TECHNIQUE: Real-time scanning was performed of the abdominal and retroperitoneal organs, with image documentation. COMPARISON: [facility], , US ABDOMEN LIMITED, 07/19/2021, 0:08. FINDINGS: Liver: Suboptimal visualization of the left lobe. Liver measures 15.7 cm in length. Increased in echogenicity. Gallbladder: Nondilated. Multiple stones. Normal gallbladder wall thickness. No pericholecystic fluid. Negative sonographic Ware's sign. Biliary ducts: Intrahepatic bile ducts are non-dilated. Extrahepatic bile duct caliber measures 4 mm. Normal is 6-7 mm or less in diameter, or 10 mm or less post-cholecystectomy. Pancreas: Visualized portions of the pancreas are sonographically normal. IMPRESSION: 1. No acute cholecystitis demonstrated. Multiple gallstones. HIDA scan could be considered for further evaluation. 2. Increased hepatic echogenicity most consistent with hepatic steatosis. Other forms of hepatocellular disease could have similar appearance. Dictated by: Pelon Welch M.D. on 06/27/2022 at 11:44 Approved by: Pelon Welch M.D. on 06/27/2022 at 11:46
[2022-06-27] MEDS: KETOROLAC 30 MG/ML VIAL 15 MG IV (10:32)
[2022-06-27 10:43] LABS: Creatine Kinase 138 U/L (55-170)
[2022-06-27 10:56] LABS: Troponin I < 0.012 ng/mL (0.01-0.034)
[2022-06-27 10:58] LABS: CKMB % Relative Index 3.4 % (1.5-5.0); Creatine Kinase MB 4.66 ng/mL (<2.37)
== END 2022-06-27 13:27 | disposition home or self-care (01) ==
PROVIDERS: Emergency Provider Emergency Medicine; PCP Family Medicine
DX: K80.20 Calculus of gallbladder without cholecystitis without obstruction (principal); R00.1 Bradycardia, unspecified
CPT/HCPCS: 36415; 76705; 80053; 82550; 82553; 83690; 84484; 85025; 93005; 96374; 99284; J1885

== ENCOUNTER 2022-08-01 22:04 | Inpatient (IN) | payer MEDICARE, MEDICAID, SELFPAY ==
[2019-05-15 13:13] VITALS: BMI 36.8
[2022-08-01 22:19] VITALS: BP 133/79; PULSE 55; RESP 16; TEMP 36.9; O2SAT 98; BMI 32.3
[2022-08-01] MEDS: ONDANSETRON 4 MG/2 ML INJ IV ×2 (22:28→22:44)
[2022-08-01 22:32] VITALS: PULSE 51; O2SAT 98
[2022-08-01 22:36] VITALS: BP 137/70; PULSE 51; O2SAT 96
--- NOTE | 2022-08-01 22:42 | ED_ITS ---
HPI - Abdominal Pain General Chief Complaint: Abdominal Pain Stated Complaint: gallbladder pain Time Seen by Provider: 08/01/22 22:42 Source: patient Mode of arrival: Ambulatory History of Present Illness HPI narrative: 66-year-old male nonsmoker with history of known gallstones presents with severe right upper quadrant pain over the course of the night. He has been seen as recently as early June was found to have gallstones but no surgical indications. He is nauseated but denies any vomiting. He is had no fever but may have had some chills. He states he had significant pain yesterday and it was tolerable over the course of the day and then got significantly worse again this evening. He states he had a dinner of chicken and rice and denies any obvious correlation between eating this food and worsening of his pain. It is significant in his right upper quadrant and worse when he moves and with taking a deep breath. He states that he is had both gallbladder disease and pancreatitis and this feels much more like when his gallbladder acts up. Related Data Home Medications Medication Instructions Recorded Confirmed aspirin 81 mg tablet,delayed 81 mg PO QAM ##0 09/22/03 05/15/19 release atorvastatin 80 mg tablet 80 mg PO BEDTIME ##0 02/27/17 05/15/19 cholecalciferol (vitamin D3) 25 1,000 unit PO QAM 06/08/18 05/15/19 mcg (1,000 unit) tablet lisinopril 40 mg tablet 40 mg PO BEDTIME 06/08/18 05/15/19 potassium chloride 10 mEq 10 meq PO QAM 06/08/18 05/15/19 tablet,extended release furosemide 40 mg tablet 40 mg PO QAM 05/15/19 05/15/19 metoprolol succinate 100 mg 100 mg PO QAM 05/15/19 05/15/19 tablet,extended release 24 hr Previous Rx's Medication Instructions Recorded hydrocodone 5 mg-acetaminophen 325 1 tab PO Q4-6H PRN pain #10 tabs 03/26/20 mg tablet ([place]) tramadol 50 mg tablet 50 mg PO Q6H PRN pain #10 tabs 06/27/22 Allergies Allergy/AdvReac Type Severity Reaction Status Date / Time codeine [CODEINE] Allergy Unknown Nausea Verified 08/01/22 22:21 Review of Systems Review of Systems Narrative: GENERAL: Denies chills, fatigue, malaise, fever, sweats. HEENT: Denies sinus pain, ear pain, sore throat, difficulty swallowing, dizzine ss. RESPIRATORY: Denies dyspnea, cough, wheezing, hemoptysis, sputum. CARDIOVASCULAR: Denies chest pain, palpitations, orthopnea, edema, GASTROINTESTINAL: See HPI : Denies dysuria, frequency, incontinence, hematuria, urinary retention. MUSCULOSKELETAL: denies weakness, joint pain, or bony pain SKIN: Denies rash, skin lesions, or other NEUROLOGIC: Denies weakness, headache, numbness, change in speech, confusion, seizures, incoordination. PSYCHIATRIC: No concerning psychosocial issues. 12 point review of systems is negative except for those stated above Patient History Medical History (Updated 08/02/22 @ 01:52 by Christo Ngo DO) Dyslipidemia GERD (gastroesophageal reflux disease) Hypertension Prediabetes Surgical History S/P CABG x 3 Family History Mother No problems noted. Father No problems noted. Social History household members: other Smoking Status: Never smoker alcohol intake: never substance use type: does not use Smoking Status: Never smoker alcohol intake frequency: 0-2 drinks per day Substance Use Type: does not use Exam Narrative Exam Narrative: GENERAL: [66] year old patient appears stated age. Well-developed patient, in mild distress. HEAD: Atraumatic. Normocephalic. EYES: Pupils equal round and reactive. Extraocular motions intact. No scleral icterus. No injection or drainage. ENT: Nose without bleeding, purulent drainage. Throat without erythema, tonsillar hypertrophy or exudate. Airway patent. NECK: Trachea midline. Non tender CARDIOVASCULAR: Regular rate and rhythm without murmurs, gallops, or rubs. RESPIRATORY: Clear to auscultation. Breath sounds equal bilaterally. No wheezes, rales, or rhonchi. GASTROINTESTINAL: Abdomen soft, tender in right upper quadrant, positive Ware's sign, nondistended. EXTREMITIES: No edema or joint tenderness. BACK: Nontender without deformity or crepitance. No flank tenderness. NEURO: AOx3. SKIN: No rash or erythema of visible areas Initial Vital Signs Initial Vital Signs: Vital Signs Temperature 98.5 F 08/01/22 22:19 Pulse Rate 55 L 08/01/22 22:19 Respiratory Rate 16 08/01/22 22:19 Blood Pressure 133/79 08/01/22 22:19 Pulse Oximetry 98 08/01/22 22:19 Oxygen Delivery Method Room Air 08/01/22 22:19 Course Orders Ordered: ED Orders 08/01/22 22:22 EKG-12 Lead Stat 08/01/22 22:40 Complete Blood Count AUTO DIFF Stat Comprehensive Metabolic Panel Stat Lipase Stat 08/01/22 23:15 US abdomen limited Stat 08/01/22 23:58 CT abdomen pelvis w con Stat 08/02/22 01:30 GGT [Gamma Glutamyl Transpeptidase] Stat Hepatitis Acute Panel Stat 08/02/22 01:31 LDH [Lactate Dehydrogenase] Stat 08/02/22 01:32 Blood Culture Stat 08/02/22 01:33 COVID19 -Nasal RAPID Stat Ondansetron HCl (Ondansetron 4 Mg/2 Ml Inj) 4 mg IV NOW PRN PRN Reason: Nausea And Vomiting Last Admin: 08/01/22 22:44 Dose: 4 mg Documented By: Admin: 08/01/22 22:28 Dose: 4 mg Documented By: AMU Discontinued Medications Sodium Chloride (Normal Saline 0.9%) 1,000 mls @ 1,000 mls/hr IV BOLUS ONE Stop: 08/02/22 00:57 Last Admin: 08/02/22 00:33 Dose: 1,000 mls/hr Documented By: SUDEEP Vital Signs Vital signs: Vital Signs - 8 hr 08/01/22 22:19 08/01/22 22:32 08/01/22 22:36 Temperature 98.5 F Pulse Rate 55 L 51 L 51 L Respiratory Rate 16 Blood Pressure 133/79 Pulse Oximetry 98 98 96 Oxygen Delivery Method Room Air 08/01/22 22:36 08/01/22 23:00 08/01/22 23:00 Temperature Pulse Rate 49 L Respiratory Rate Blood Pressure 137/70 117/63 Pulse Oximetry 95 Oxygen Delivery Method 08/01/22 23:30 08/01/22 23:31 08/01/22 23:31 Temperature Pulse Rate 50 L 50 L Respiratory Rate Blood Pressure 129/72 Pulse Oximetry 96 96 Oxygen Delivery Method MDM - Abdominal Pain Lab Data 08/01/22 22:40 08/01/22 22:40 Labs: Lab Results 08/01/22 08/01/22 Range/Units 22:40 22:40 WBC 13.5 H (4.5-11.0) X10^3/uL RBC 5.47 (4.5-5.9) X10^6/uL Hgb 15.9 (13.5-17.5) g/dL Hct 47.4 (41-53) % MCV 86.6 (80-100) fL MCH 29.1 (26-34) PG MCHC 33.7 (30-36) % RDW 13.5 (11.6-14.8) % Plt Count 131 L (150-400) X10^3/uL Neut % (Auto) 73.0 (50-75) % Lymph % (Auto) 17.2 L (25-40) % [place] % (Auto) 7.9 (3-14) % Eos % (Auto) 1.5 L (2-4) % Baso % (Auto) 0.4 (0-2) % Neut # (Auto) 9800 H (0981-1280) /uL Lymph # (Auto) 2300 (5468-1942) /uL [place] # (Auto) 1100 H (0-900) /uL Eos # (Auto) 200 (0-450) /uL Baso # (Auto) 100 (0-100) /uL Sodium 137 (137-145) mmol/L Potassium 3.6 (3.4-5.1) mmol/L Chloride 98 (98-107) mmol/L Carbon Dioxide 33 H (22-32) mmol/L BUN 14 (9-20) mg/dL Creatinine 1.08 (0.66-1.25) mg/dL Estimated GFR > 60 (>60) mL/min BUN/Creatinine Ratio 13.0 (6-22) Glucose 152 H (80-110) mg/dL Calcium 8.8 (8.4-10.2) mg/dL Total Bilirubin 1.9 H (0.2-1.3) mg/dL AST 246 H (17-59) IU/L ALT 258 H (<50) IU/L Alkaline Phosphatase 103 (38-126) U/L Total Protein 7.1 (6.3-8.2) g/dL Albumin 4.2 (3.5-5.0) g/dL Globulin 2.9 (1.7-4.1) g/dL Albumin/Globulin Ratio 1.4 (1.0-2.8) Lipase 48477 H (23-300) U/L Point of care testing: Urine Dip Bedside Urine Glucose Negative Bedside Urine Bilirubin - Negative Bedside Urine Ketone - Negative Urine Specific [place] 1.015 Bedside Urine Occult Blood - Negative Bedside Urine pH 6.0 Bedside Urine Protein - Negative Bedside Urine Urobilinogen - Negative Bedside Urine Nitrite - Negative Bedside Urine Leukocytes - Negative Esterase MDM Narrative Medical decision making narrative: CC: Severe right upper quadrant pain with known gallbladder disease Complicating co-morbidities: Age, known gallbladder disease, hypertension Data collected from: Patient Medical records reviewed: Prior notes reviewed in our EMR Differential considered, but not limited to: Gallbladder disease, liver disease, pancreatitis, bowel obstruction versus other Exam documented above, pertinent findings include: Severe pain in the right upper quadrant Lab Test results independently reviewed as above. Pertinent findings: Elevated white blood cell count, relative left shift, significantly elevated pancreatic enzymes Independently reviewed EKG as above Imaging studies independently reviewed: Ultrasound demonstrates gallstones but no evidence of pericholecystic fluid, gallbladder wall thickening or other findings consistent with acute cholecystitis. CT of abdomen and pelvis with IV contrast without significant abnormality Consultations: Hospitalist Treatments: Fluids Patient with significant right upper quadrant pain, lipase over 20,000 and elevation of white blood cells. Imaging shows cholelithiasis without evidence of coli cystitis. No significant radiographic abnormality of pancreas such as necrosis or pseudocyst. Patient with pain and labs suggestive of pancreatitis requires hospitalization for further characterization and treatment of symptoms Discharge Plan Departure Patient Disposition: Admitted As Inpatient Clinical Impression: Acute pancreatitis Prescriptions: No Action aspirin 81 MG tablet,delayed release (DR/EC) 81 mg PO QAM Qty: 0 atorvastatin 80 MG tablet 80 mg PO BEDTIME Qty: 0 tramadol 50 mg tablet 50 mg PO Q6H PRN (Reason: pain) Qty: 10 0RF potassium chloride 10 mEq tablet extended release 10 meq PO QAM lisinopril 40 mg tablet 40 mg PO BEDTIME cholecalciferol (vitamin D3) 1,000 unit tablet 1,000 unit PO QAM metoprolol succinate 100 mg tablet extended release 24 hr 100 mg PO QAM furosemide 40 mg tablet 40 mg PO QAM Patient Comments: take 1 tablet by mouth once daily hydrocodone-acetaminophen [[place]] 5-325 mg tablet 1 tab PO Q4-6H PRN (Reason: pain) Qty: 10 0RF Referrals: Shelia Mathew MD [Primary Care Provider] -
[2022-08-01 22:59] LABS: Add Manual Diff / Slide Review NO; Basophils Absolute Auto 100 /uL (0-100); Basophils Percent Auto 0.4 % (0-2); Eosinophils Absolute Auto 200 /uL (0-450); Eosinophils Percent Auto 1.5 % (2-4); Hematocrit 47.4 % (41-53); Hemoglobin 15.9 g/dL (13.5-17.5); Lymphocytes Absolute Auto 2300 /uL (1100-4500); Lymphocytes Percent Auto 17.2 % (25-40); Mean Corpuscular HGB Conc 33.7 % (30-36); Mean Corpuscular Hemoglobin 29.1 PG (26-34); Mean Corpuscular Volume 86.6 fL (80-100); Monocytes Absolute Auto 1100 /uL (0-900); Monocytes Percent Auto 7.9 % (3-14); Neutrophils Absolute Auto 9800 /uL (1500-7000); Platelet Count 131 X10^3/uL (150-400); Red Blood Cell Count 5.47 X10^6/uL (4.5-5.9); Red Cell Distribution Width 13.5 % (11.6-14.8); White Blood Cell Count 13.5 X10^3/uL (4.5-11.0)
[2022-08-01 23:00] VITALS: BP 117/63; PULSE 49; O2SAT 95
[2022-08-01 23:06] LABS: Alanine Aminotransferase 258 IU/L (<50); Albumin 4.2 g/dL (3.5-5.0); Albumin Globulin Ratio 1.4 (1.0-2.8); Alkaline Phosphatase 103 U/L (38-126); Aspartate Aminotransferase 246 IU/L (17-59); Bilirubin Total 1.9 mg/dL (0.2-1.3); Blood Urea Nitrogen 14 mg/dL (9-20); Calcium 8.8 mg/dL (8.4-10.2); Carbon Dioxide 33 mmol/L (22-32); Chloride 98 mmol/L (98-107); Estimated Glomerular Filt Rate > 60 mL/min (>60); Globulin 2.9 g/dL (1.7-4.1); Glucose 152 mg/dL (80-110); HEMOLYSIS 16 (0-50); Potassium 3.6 mmol/L (3.4-5.1); Sodium 137 mmol/L (137-145); Total Protein 7.1 g/dL (6.3-8.2)
--- NOTE | 2022-08-01 23:15 | DI.US.S_ITS ---
PROCEDURE: US ABDOMEN LIMITED INDICATIONS: ELEVATED LFTS, BILIRUBIN; RUQ PAIN TECHNIQUE: Real-time focused scanning was performed of the abdomen, with image documentation. COMPARISON: [facility], CT, CT ABDOMEN PELVIS W CON, 08/02/2022, 0:16. [facility], US, US ABDOMEN LIMITED, 06/27/2022, 10:32. FINDINGS: The liver demonstrates increased parenchymal echogenicity compatible with fatty infiltration. The gallbladder demonstrates multiple small gallstones without wall thickening, pericholecystic fluid, or reported sonographic Ware's sign. No intra or extrahepatic biliary ductal dilatation. Visualized pancreas appears grossly unremarkable sonographically. IMPRESSION: 1. Cholelithiasis without evidence of cholecystitis. 2. Increased hepatic echogenicity compatible with steatosis Dictated by: Freddy Carlos M.D. on 08/02/2022 at 1:09 Approved by: Freddy Carlos M.D. on 08/02/2022 at 1:11
[2022-08-01 23:24] LABS: Lipase 23234 U/L (23-300)
[2022-08-01 23:30] VITALS: PULSE 50; O2SAT 96
[2022-08-01 23:31] VITALS: BP 129/72; PULSE 50; O2SAT 96
--- NOTE | 2022-08-01 23:58 | DI.CT.S_ITS ---
PROCEDURE: CT ABDOMEN PELVIS W CON INDICATIONS: severe epigastric pain, pancreatitis TECHNIQUE: After the administration of IV contrast, axial sections were acquired from the lung bases to the pubic symphysis. Coronal and sagittal reformats were performed. For radiation dose reduction, the following was used: automated exposure control, adjustment of mA and/or kV according to patient size. COMPARISON: [facility], , US ABDOMEN LIMITED, 08/01/2022, 23:39. FINDINGS: Image quality: Excellent. Lung bases: There are few small pulmonary nodules within the lung bases, with the largest measuring up to 0.7 cm in the left lower lobe on series 3, image 17. There is also a right lower lobe 0.6 cm nodule on series 3, image 15. A few smaller peripheral scattered nodules are demonstrated within the right lower lobe. Heart: Heart is normal in size. There is mild concentric wall thickening of the visualized distal esophagus. ABDOMEN: Liver: No mass lesion. Gallbladder: Multiple dependent calcified gallstones are demonstrated in the region of the gallbladder neck. No definite gallbladder wall thickening or pericholecystic fluid. Biliary ducts: No biliary ductal dilatation. Pancreas: No peripancreatic fat stranding or fluid collections to suggest acute pancreatitis. No pancreatic duct dilatation or discrete pancreatic mass identified. Spleen: Normal in size. There is a large peripherally calcified hyperdense structure with a layering fluid-debris level suggesting sequelae of a prior infection. Adrenal Glands: No adrenal nodules. Kidneys and Ureters: No hydronephrosis. There is a punctate nonobstructing stone within the right kidney. Stomach and Bowel: Stomach, small bowel loops, and colon are normal in caliber and wall thickness. Appendix is normal in appearance. Peritoneum: No abnormal intraperitoneal fluid. No free air. Ventral Wall: There is a ventral fat-containing abdominal hernia. Abdominal Nodes: No retroperitoneal or mesenteric adenopathy by size criteria. Vessels: Aorta and inferior vena cava are normal in size. PELVIS: Pelvic Organs: Unremarkable. Bladder: Unremarkable. Pelvic Nodes: No enlarged lymph nodes. Miscellaneous: No inguinal hernias are seen. Bones: Visualized osseous structures demonstrate no suspicious focal lesions. IMPRESSION: 1. No CT evidence of acute pancreatitis. No acute peripancreatic fluid collections or evidence of necrosis. 2. Cholelithiasis without CT evidence of acute cholecystitis. 3. Peripherally calcified cyst within the spleen likely reflects sequelae of prior infection. Dictated by: Freddy Carlos M.D. on 08/02/2022 at 1:14 Approved by: Freddy Carlos M.D. on 08/02/2022 at 1:21
[2022-08-02] VITALS (25 sets, daily range): BP systolic 111–190; BP diastolic 48–81; PULSE 48–60; RESP 17–20; TEMP 35.7–36.2; O2SAT 93–99; BMI 33.4
--- NOTE | 2022-08-02 | DI.MRI.S_ITS ---
PROCEDURE: MR ABDOMEN WO/W CON INDICATIONS: recurrent acute pancreatitis TECHNIQUE: Coronal HASTE, axial 2D FLASH in- and [id number]; axial breath-hold T2 FSE with fat saturation from the hepatic dome to the iliac crests. Oblique coronal thin-slice and radial thick slab HASTE through the biliary system. Dynamic axial VIBE during administration of contrast. Post-contrast coronal VIBE or 2D FLASH with fat saturation from the hepatic dome to the iliac crests. Optional diffusion weighted imaging and ADC may be performed. COMPARISON: None. FINDINGS: Image quality: Excellent. Pancreas and biliary system: Trace fat stranding at the tail of the pancreas, with homogeneous enhancement parent a no pancreatic ductal dilation. Cholelithiasis. Common bile duct measures 5 mm, without stones. Cholelithiasis without wall thickening or pericholecystic fat stranding to suggest acute cholecystitis. Solid organs: Liver is normal in size and enhancement. Spleen is normal in size and enhancement. T2 intermediate, T1 intermediate cystic lesion with a thick wall in the central body of the spleen . No adrenal nodules. Kidneys are normal in size and enhancement, without hydronephrosis. Nodes and vessels: No retroperitoneal or mesenteric adenopathy by size criteria. Aorta and inferior vena cava are normal in size. Bowel and peritoneum: Unenhanced bowel loops are normal in caliber throughout. No free fluid. Lung bases: 7-8 mm solid nodule in the left lung base . Bones and soft tissues: Wide-mouth ventral wall hernia containing fat. Bone marrow is normal in overall signal. IMPRESSION: 1. Acute interstitial pancreatitis without acute peripancreatic collection. 2. Cholelithiasis without evidence of acute cholecystitis or choledocholithiasis. 3. Cystic mass with T2/T1 intermediate signal within the spleen, probably a (chronic) pseudocyst. 4. 7-8 mm solid nodule in the left lung base. Recommend CT in 6-12 months, per Fleischner Society guidelines. Dictated by: Thierno Dutta M.D. on 08/02/2022 at 8:53 Approved by: Thierno Dutta M.D. on 08/02/2022 at 9:00
[2022-08-02] MEDS: SODIUM CHLORIDE 0.9% 1,000 ML 1000 ML IV (00:33)
[2022-08-02 02:29] LABS: Gamma Glutamyl Transpeptidase 247 U/L (15-73); Lactate Dehydrogenase 242 U/L (120-246)
--- NOTE | 2022-08-02 02:58 | PM.HP.1 ---
History of Present Illness History of Present Illness Date Patient Seen: 08/02/22 Time Patient Seen: 02:58 Chief complaint: gallbladder pain Narrative: Lincoln Lawson is a 66-year-old male with a history of CABG x3, CAD, hypertension, dyslipidemia, recurrent acute pancreatitis, and gallstones presented to ED with severe right upper quadrant pain over the course of the night.? He has been seen as recently as early June was found to have gallstones but no surgical indications.? He is nauseated but denies any vomiting.? He is had no fever but may have had some chills.? He states he had significant pain yesterday and it was tolerable over the course of the day and then got significantly worse again this evening.? He states he had a dinner of chicken and rice and denies any obvious correlation between eating this food and worsening of his pain.? It is significant in his right upper quadrant and worse when he moves and with taking a deep breath.? He states that he is had both gallbladder disease and pancreatitis and this feels much more like when his gallbladder acts up. On admit patient denies chest pain, shortness in breath, headache, changes in vision, difficulty swallowing, speech impairment, weakness, numbness, tingling, difficulty with ambulation, recent falls, head injury, LOC, fever, body aches, cough, recent exposure to illness, vomiting, urinary incontinence/retention, dysuria, frequency, urgency, hematuria, bowel changes, constipation, incontinence, melena, rashes, recent changes to medication, injury, or trauma. The patient denies any jaundice, nathaniel-colored stool, or dark urine.? Admit 98.5, 141/66, 50, 16, 95% on room air. WBC 13.5, neutrophils 9800, mono 1,100, platelets 131. Bicarb 33, glucose 152, bili 1.9, AST 246, ALT 258, lipase 23,234, GGT 247, LDH negative, urine negative, hepatitis and blood culture panels pending. Abdominal ultrasound demonstrates cholelithiasis without cholecystitis, increased hepatic echogenicity likely steatosis. Patient admitted for acute pancreatitis, transaminitis, with thrombocytopenia. Patient History Medical History (Updated 08/02/22 @ 04:39 by MELVINA Santiago) CAD (coronary artery disease) Dyslipidemia GERD (gastroesophageal reflux disease) Hypertension Obesity (BMI 30.0-34.9) Prediabetes Surgical History S/P CABG x 3 Family & Social History Family History Mother No problems noted. Father No problems noted. Social History: household members other Safety & Behavioral: Feels Safe in Current Yes Environment Tobacco & Substance use: Smoking Status Never smoker alcohol intake never alcohol intake frequency 0-2 drinks per day Substance Use Type does not use Meds Home Medications and Allergies Home Medications Medication Instructions Recorded Confirmed Type aspirin 81 mg tablet,delayed 81 mg PO QAM ##0 09/22/03 05/15/19 History release atorvastatin 80 mg tablet 80 mg PO BEDTIME ##0 02/27/17 05/15/19 History cholecalciferol (vitamin D3) 25 1,000 unit PO QAM 06/08/18 05/15/19 History mcg (1,000 unit) tablet lisinopril 40 mg tablet 40 mg PO BEDTIME 06/08/18 05/15/19 History potassium chloride 10 mEq 10 meq PO QAM 06/08/18 05/15/19 History tablet,extended release furosemide 40 mg tablet 40 mg PO QAM 05/15/19 05/15/19 History metoprolol succinate 100 mg 100 mg PO QAM 05/15/19 05/15/19 History tablet,extended release 24 hr hydrocodone 5 mg-acetaminophen 325 1 tab PO Q4-6H PRN pain #10 tabs 03/26/20 Rx mg tablet ([place]) tramadol 50 mg tablet 50 mg PO Q6H PRN pain #10 tabs 06/27/22 Rx Allergies Allergy/AdvReac Type Severity Reaction Status Date / Time codeine [CODEINE] Allergy Unknown Nausea Verified 08/01/22 22:21 Review of Systems Review of Systems Narrative: All 12 point systems reviewed with the patient and are negative except otherwise documented. Exam Vital Signs (past 8 hours): - 08/01/22 22:19 08/01/22 22:32 08/01/22 22:36 Temperature 98.5 F Pulse Rate 55 L 51 L 51 L Respiratory Rate 16 Blood Pressure 133/79 Pulse Oximetry 98 98 96 Oxygen Delivery Method Room Air 08/01/22 22:36 08/01/22 23:00 08/01/22 23:00 Temperature Pulse Rate 49 L Respiratory Rate Blood Pressure 137/70 117/63 Pulse Oximetry 95 Oxygen Delivery Method 08/01/22 23:30 08/01/22 23:31 08/01/22 23:31 Temperature Pulse Rate 50 L 50 L Respiratory Rate Blood Pressure 129/72 Pulse Oximetry 96 96 Oxygen Delivery Method 08/02/22 00:00 08/02/22 00:00 08/02/22 00:30 Temperature Pulse Rate 50 L 59 L Respiratory Rate Blood Pressure 141/66 H Pulse Oximetry 96 97 Oxygen Delivery Method 08/02/22 01:00 08/02/22 01:30 08/02/22 02:00 Temperature Pulse Rate 53 L 54 L 50 L Respiratory Rate Blood Pressure Pulse Oximetry 93 93 95 Oxygen Delivery Method Oxygen Delivery Method Room Air Narrative Exam Narrative: General: Patient is a well-developed, well-nourished pleasant male in no distress at this time. HEENT: Normocephalic, atraumatic, extraocular muscles intact, oral pharynx is clear and mucous membranes are moist. Neck is supple and symmetric, trachea is midline, no adenopathy, no thyroid enlargement, nontender, no masses palpated. Negative for JVD Chest: Normal AP diameter and contour without kyphoscoliosis, no nasal flaring, retractions, or tachypneic labored breathing. Lungs: Auscultation of all lung pineda are clear without adventitious sounds, wheezes, rhonchi, or rales. Cardio: Bradycardic rate and rhythm without murmur, rubs, or gallops, no carotid bruit, no cardiac pulsations present. Abdomen: Soft nontender, negative for organomegaly, or masses. Noted pain with deep palpation rt upper quadrant, s/p CaBG scar has surrounding chronic distensionin upper abd. Bowel sounds are present in all 4 quadrants without guarding or rebound, no CVA tenderness. Musculoskeletal: Muscle strength and tone are equal within normal limits, no deformity, crepitus, effusions, cyanosis, clubbing or edema present. Full range of motion intact radial and pedal pulses are normal. Skin: Warm dry and intact without rashes, ulcerations or petechiae. Neuro: Alert and orientated x3, strength is +5/5 in all extremities, sensation to touch intact, no gross deficits noted of cranial nerves. Psych: Patient has a well-kept appearance, appropriate affect, mental status attitude thought context and judgment are appropriate for age. Objective Labs 08/01/22 22:40 08/01/22 22:40 Labs: Laboratory Results - last 24 hr 08/01/22 08/01/22 08/02/22 22:40 22:40 01:59 WBC 13.5 H RBC 5.47 Hgb 15.9 Hct 47.4 MCV 86.6 MCH 29.1 MCHC 33.7 RDW 13.5 Plt Count 131 L Neut % (Auto) 73.0 Lymph % (Auto) 17.2 L [place] % (Auto) 7.9 Eos % (Auto) 1.5 L Baso % (Auto) 0.4 Neut # (Auto) 9800 H Lymph # (Auto) 2300 [place] # (Auto) 1100 H Eos # (Auto) 200 Baso # (Auto) 100 Sodium 137 Potassium 3.6 Chloride 98 Carbon Dioxide 33 H BUN 14 Creatinine 1.08 Estimated GFR > 60 BUN/Creatinine Ratio 13.0 Glucose 152 H Calcium 8.8 Total Bilirubin 1.9 H GGT 247 H AST 246 H ALT 258 H Alkaline Phosphatase 103 Lactate Dehydrogenase Total Protein 7.1 Albumin 4.2 Globulin 2.9 Albumin/Globulin Ratio 1.4 Lipase 86505 H 08/02/22 01:59 WBC RBC Hgb Hct MCV MCH MCHC RDW Plt Count Neut % (Auto) Lymph % (Auto) [place] % (Auto) Eos % (Auto) Baso % (Auto) Neut # (Auto) Lymph # (Auto) [place] # (Auto) Eos # (Auto) Baso # (Auto) Sodium Potassium Chloride Carbon Dioxide BUN Creatinine Estimated GFR BUN/Creatinine Ratio Glucose Calcium Total Bilirubin GGT AST ALT Alkaline Phosphatase Lactate Dehydrogenase 242 Total Protein Albumin Globulin Albumin/Globulin Ratio Lipase Assessment & Plan Assessment & Plan narrative: Lincoln Lawson is a 66-year-old male with a history of CABG x3, CAD, hypertension, dyslipidemia, recurrent acute pancreatitis, and gallstones presented to ED with severe right upper quadrant pain over the course of the night.? He has been seen as recently as early June was found to have gallstones but no surgical indications. Patient admitted for acute pancreatitis, transaminitis, with leukocytosis and thrombocytopenia. Patient admitted for fluid hydration, antibiotics pending culture results & inflammatory marker, trend LFTs and CBC, MRCP to be completed today, goal resolution within 72 hrs. 1. Acute pancreatitis, acute on chronic, with leukocytosis, acute, present on admission -R Factor: Hepatocellular -WBC 13.5, neutrophils 9800, mono 1,100, platelets 131. Bicarb 33, glucose 152, -bili 1.9, AST 246, ALT 258, lipase 23,234, amylase 1076, GGT 247, LDH negative, urine negative, -hepatitis panel, lipid, crp, blood culture panels pending. -Abdominal ultrasound demonstrates cholelithiasis without cholecystitis, increased hepatic echogenicity likely steatosis. -NPO overnight, with the exception of meds and ice chips, may attempt clears in the a.m. if no nausea or vomiting present -MRCP scheduled for tomorrow -continue antiemetics and pain management as needed -fluid hydration NS at 100 cc/HR -holding any antibiotics pending culture results -hold hepatic/pancreatic toxic medications 2. Transaminitis, acute,, present on admission -R Factor: Hepatocellular -bili 1.9, AST 246, ALT 258, lipase 23,234, amylase 1076, GGT 247, LDH negative, urine negative, -hepatitis panel, lipid, crp, blood culture panels pending. -Monitor LFT's 3. Thrombocytopenia, mild, acute, present on admission -platelets 131 on admission -monitor CBC/Plt 4. Hypertension, essential, present on admission -continue metoprolol/lisinopril 5. Dyslipidemia, chronic, present on admission -holding Lipitor due to elevated LFTs 6. CAD with history of CABG x3, chronic, present on admission -continue metoprolol, lisinopril, hold Lasix due to elevated LFTs 7. Obesity, mild,acute on chronic, present on admission -as evidence by BMI 32.4 -dietary consult ordered regarding nutritional education and information for dietary, lifestyle, exercise, and weight changes. -the patient is at much higher risk for medical and surgical complications due to obesity as it relates to chronic illnesses:, and acute illness. The patient's obesity increases the difficulty and complexity of medical and/or surgical interventions, management and increases the chances of poor outcome such as morbidity and mortality as well as impaired wound healing. Code status:Full Surrogate decision maker: Renny CRUZ PCR: Negative DVT/VTE prophylaxis: Lovenox and SCDs Disposition: Patient admitted to acute care for acute pancreatitis/transaminitis, thrombocytopenia, will require fluid hydration and monitoring of LFTs, expected length of stay greater than 2 midnights. I have utilized all available immediate resources to obtain, update, or review the patient's current medications. I confirmed that the patient's advanced care plan is present, Code status is documented and/or surrogate decision maker is listed in the patient's medical record. I have personally reviewed patient's chart notes from PCP, specialists, diagnostic imaging, and laboratory results. Time Spent With Patient Critical Care time: I spent a total of [] minutes of critical care time on this patient's care today; this time is exclusive of procedural time.
[2022-08-02 03:13] LABS: Amylase 1076 U/L (30-110); Magnesium 2.2 mg/dL (1.6-2.3)
[2022-08-02 04:37] LABS: COVID19 -Nasal RAPID Negative (Negative)
[2022-08-02 06:07] LABS: C-Reactive Protein Quant < 0.5 mg/dL (<1.0)
[2022-08-02 06:23] LABS: Add Manual Diff / Slide Review NO; Basophils Absolute Auto 0 /uL (0-100); Basophils Percent Auto 0.3 % (0-2); Eosinophils Absolute Auto 100 /uL (0-450); Eosinophils Percent Auto 1.4 % (2-4); Hemoglobin 14.6 g/dL (13.5-17.5); Lymphocytes Absolute Auto 2100 /uL (1100-4500); Lymphocytes Percent Auto 24.8 % (25-40); Mean Corpuscular HGB Conc 33.9 % (30-36); Mean Corpuscular Hemoglobin 29.2 PG (26-34); Mean Corpuscular Volume 86.1 fL (80-100); Monocytes Absolute Auto 700 /uL (0-900); Monocytes Percent Auto 8.8 % (3-14); Neutrophils Absolute Auto 5500 /uL (1500-7000); Neutrophils Percent Auto 64.7 % (50-75); Platelet Count 108 X10^3/uL (150-400); Red Blood Cell Count 4.99 X10^6/uL (4.5-5.9); Red Cell Distribution Width 13.5 % (11.6-14.8); White Blood Cell Count 8.5 X10^3/uL (4.5-11.0)
[2022-08-02 06:29] LABS: INR 1.1 (0.9-1.3)
[2022-08-02 06:33] LABS: BUN Creatinine Ratio 13.1 (6-22); Blood Urea Nitrogen 14 mg/dL (9-20); Calcium 8.1 mg/dL (8.4-10.2); Carbon Dioxide 27 mmol/L (22-32); Chloride 103 mmol/L (98-107); Cholesterol 132 mg/dL (140-199); Estimated Glomerular Filt Rate > 60 mL/min (>60); Glucose 104 mg/dL (80-110); HDL Cholesterol 35 mg/dL (40-60); HEMOLYSIS < 15 (0-50); LDL Cholesterol Calculated 66 mg/dL (<100); Potassium 4.5 mmol/L (3.4-5.1); Sodium 136 mmol/L (137-145); Triglycerides 153 mg/dL (35-150)
[2022-08-02] MEDS: SODIUM CHLORIDE 0.9% 1,000 ML 100 ML IV (06:37)
[2022-08-02 06:40] LABS: Lipase 3751 U/L (23-300)
[2022-08-02 07:12] LABS: Alanine Aminotransferase 208 IU/L (<50); Albumin 3.5 g/dL (3.5-5.0); Albumin Globulin Ratio 1.5 (1.0-2.8); Alkaline Phosphatase 80 U/L (38-126); Aspartate Aminotransferase 139 IU/L (17-59); BUN Creatinine Ratio 13.1 (6-22); Bilirubin Total 1.3 mg/dL (0.2-1.3); Blood Urea Nitrogen 14 mg/dL (9-20); Calcium 8.3 mg/dL (8.4-10.2); Carbon Dioxide 28 mmol/L (22-32); Chloride 102 mmol/L (98-107); Estimated Glomerular Filt Rate > 60 mL/min (>60); Globulin 2.4 g/dL (1.7-4.1); Glucose 101 mg/dL (80-110); HEMOLYSIS < 15 (0-50); Potassium 4.7 mmol/L (3.4-5.1); Sodium 134 mmol/L (137-145); Total Protein 5.9 g/dL (6.3-8.2)
[2022-08-02] MEDS: METOPROLOL ER 50 MG TABLET 100 MG PO (09:46)
[2022-08-02] MEDS: ENOXAPARIN 40 MG/0.4 ML SYRINGE SUBCUT (09:48)
[2022-08-02 11:00] LABS: C-Reactive Protein Quant 0.9 mg/dL (<1.0)
--- NOTE | 2022-08-02 11:38 | CM.DANOTE ---
Patient is a 66 yo male who was admitted on 08/02/22 for Acute Recurrent Pancreatitis. Pt has MCR and ELIS[employer] for insurance and his PCP is Shelia Mathew. EMR was reviewed. Per MD, pt with recurrent pancreatitis and gallstones and to be NPO and have MRCP. Pt's last admission was in 2019 for similar and a few recent ED visits. SW met bedside with pt and explained role and pt confirms he lives in [place] with 3 brothers and pt states he is very active and independent at baseline walking about 3 miles most days and does not use DME to ambulate and still drives. Pt denies any hx of HH or SNF and does not anticipate any d/c needs when stable and is hopeful to return home soon via family POV. Plan: SW to follow for eventual advancement of diet to see if pt can tolerate and confirm safe plan of d/c home with brothers and any further identified discharge planning needs. ROSALINDA Benitez Discharge Planning/Care Management CM Discharge Assessment Start: 08/02/22 11:35 Freq: Status: Active Protocol: Document 08/02/22 11:35 BF (Rec: 08/02/22 11:37 BF [id number]) Discharge Planning Assessment Assigned Scientific Illustrator ROSALINDA Pineda DPOA/Assigned Designee Name Brother Dre Contact Information [phone] Advance Directives? No Advance Directives on File No History Provided By Patient,Medical Record Has Patient been admitted in last 30 No days? Comment last admission in 2019 but a few ED visits recently for similar Prior Living Arrangements House Household Members family Comment lives with 3 brothers Type of transporation used prior to Drives own vehicle admit Independent with ADL's Yes Is patient alert and oriented? Yes Caregiver for Another No Barriers to Discharge No Discharge Plan Home Transportation Arrangement Family Referrals Initiated None needed Whiteboard Updated in Patient Room with Yes name and ext. # of Scientific Illustrator Review Status In Process Please Provide Date Initial DC 08/02/22 Assessment Was Performed Next Review Type Continued Stay Review
[2022-08-02] MEDS: OXYCODONE IR 5 MG TABLET 10 MG PO (12:52)
--- NOTE | 2022-08-02 13:12 | PC.NURSE ---
1230 Patient refusing vitals by DENTAL SECRETARY at this time. States he wants to leave. 1245 Dr. Poe spoke with the hospitalist New about the patient's desire to DC. She reports that she will not DC the patient today as she wants to monitor, give fluids, and keep patient NPO for pancreatitis. She reports he will have to sign out AMA if he wants to leave. 1255 At this time I spoke with the patient and informed him of the hospitalist's wishes to continue monitoring and medicating the patient in the hospital. He reports he will not sign out AMA at this time. He reports a headache. I got him some oxycodone for the pain. He reports his biggest complaint is that he is unable to eat or drink. I brought him some activity books to pass the time. BP is 190 systolic, will repeat in a bit after pain meds have kicked in.
[2022-08-02] MEDS: ONDANSETRON 4 MG/2 ML INJ IV (14:25)
[2022-08-02] MEDS: PROCHLORPERAZINE 10 MG/2 ML VIAL 5 MG IV (16:30)
--- NOTE | 2022-08-02 17:59 | DIET.CONS ---
Dietary Consultation Note Admission Date: 08/02/2022 03:55 Assessment: 66 y/o M admitted with acute pancreatitis. Additionally, per hospitalist notes, abdominal ultrasound demonstrates cholelithiasis without cholecystitis, with likely hepatic steatosis Lincoln reports aiming for a fairly low fat diet. Denies eating out, eating greasy foods or ETOH intake. States he has intentionally lost weight. Reports a wt of 258# in November 2021, now 237#. Endorses walking 5 miles per day. Tracks his water intake, 24-32oz per day. Diet Recall: B: Eggs in butter, 1 small sausage sohan, toast with jelly, apple juice L: ham/cheese sandwich D: pork chop or chx with salad and potato or rice sn: nothing or cheerios with 2% milk Beverages: juice, water, diet soda Ht: 180.34 cm Wt: 108.7 kg BMI: 33.4 Last BM: 08/02/22 (08/02/22 15:37) MNA: 9 Chacho Score: 19 Diet: 08/02/22 Breakfast Clear Liquid Diet Diet Modifications: Labs: RBC 4.99 X10^6/uL (4.5-5.9) 08/02/22 05:56 Hgb 14.6 g/dL (13.5-17.5) 08/02/22 05:56 Hct 43.0 % (41-53) 08/02/22 05:56 Creatinine 1.07 mg/dL (0.66-1.25) 08/02/22 05:56 Creatinine 1.07 mg/dL (0.66-1.25) 08/02/22 05:56 Nutrition Diagnosis: Food and nutrition related knowledge deficit r/t no prior education regarding low fat diet aeb pt report Interventions: Low fat diet nutrition therapy, discussed benefits for gallbladder and pancreatitis risk, encouraged increased water intake and small frequent meals Monitoring/Evaluations: consult prn Electronically Signed by: Susanne Morrison 08/02/22 17:59 Clinical Dietitian [address] [address]
[2022-08-02] MEDS: SODIUM CHLORIDE 0.9% FLUSH 10 ML IV (20:02)
[2022-08-03 00:34] VITALS: BP 119/44; PULSE 55; RESP 18; TEMP 36.9; O2SAT 98
[2022-08-03 05:29] VITALS: BP 102/48; PULSE 56; RESP 18; TEMP 36.6; O2SAT 98
[2022-08-03 05:49] LABS: Add Manual Diff / Slide Review NO; Basophils Absolute Auto 0 /uL (0-100); Basophils Percent Auto 0.4 % (0-2); Eosinophils Absolute Auto 200 /uL (0-450); Eosinophils Percent Auto 2.2 % (2-4); Hematocrit 40.6 % (41-53); Hemoglobin 13.5 g/dL (13.5-17.5); Lymphocytes Absolute Auto 3300 /uL (1100-4500); Lymphocytes Percent Auto 41.5 % (25-40); Mean Corpuscular HGB Conc 33.3 % (30-36); Mean Corpuscular Volume 87.1 fL (80-100); Monocytes Absolute Auto 700 /uL (0-900); Monocytes Percent Auto 9.2 % (3-14); Neutrophils Absolute Auto 3700 /uL (1500-7000); Neutrophils Percent Auto 46.7 % (50-75); Platelet Count 109 X10^3/uL (150-400); Red Blood Cell Count 4.66 X10^6/uL (4.5-5.9); Red Cell Distribution Width 13.3 % (11.6-14.8); White Blood Cell Count 7.8 X10^3/uL (4.5-11.0)
[2022-08-03 06:00] LABS: Lipase 113 U/L (23-300)
[2022-08-03 06:02] LABS: Alanine Aminotransferase 124 IU/L (<50); Albumin 3.2 g/dL (3.5-5.0); Albumin Globulin Ratio 1.3 (1.0-2.8); Alkaline Phosphatase 65 U/L (38-126); Aspartate Aminotransferase 57 IU/L (17-59); BUN Creatinine Ratio 13.7 (6-22); Bilirubin Total 1.1 mg/dL (0.2-1.3); Blood Urea Nitrogen 13 mg/dL (9-20); Calcium 8.2 mg/dL (8.4-10.2); Carbon Dioxide 28 mmol/L (22-32); Chloride 103 mmol/L (98-107); Estimated Glomerular Filt Rate > 60 mL/min (>60); Globulin 2.5 g/dL (1.7-4.1); Glucose 84 mg/dL (80-110); HEMOLYSIS < 15 (0-50); Potassium 4.1 mmol/L (3.4-5.1); Sodium 135 mmol/L (137-145); Total Protein 5.7 g/dL (6.3-8.2)
[2022-08-03 09:00] VITALS: BP 120/46; PULSE 88; RESP 16; TEMP 35.9; O2SAT 98
[2022-08-03] MEDS: SODIUM CHLORIDE 0.9% FLUSH 10 ML IV (09:10)
--- NOTE | 2022-08-03 18:31 | P.DS_ITS ---
History of Present Illness History of Present Illness Chief complaint: gallbladder pain Narrative: Per history and physical: Lincoln Lawson is a 66-year-old male with a history of CABG x3, CAD, hypertension, dyslipidemia, recurrent acute pancreatitis, and gallstones presented to ED with severe right upper quadrant pain over the course of the night.? He has been seen as recently as early June was found to have gallstones but no surgical indications.? He is nauseated but denies any vomiting.? He is had no fever but may have had some chills.? He states he had significant pain yesterday and it was tolerable over the course of the day and then got significantly worse again this evening.? He states he had a dinner of chicken and rice and denies any obvious correlation between eating this food and worsening of his pain.? It is significant in his right upper quadrant and worse when he moves and with taking a deep breath.? He states that he is had both gallbladder disease and pancreatitis and this feels much more like when his gallbladder acts up. ?On admit patient denies chest pain, shortness in breath, headache, changes in vision, difficulty swallowing, speech impairment, weakness, numbness, tingling, difficulty with ambulation, recent falls, head injury, LOC, fever, body aches, cough, recent exposure to illness, vomiting, urinary incontinence/retention, dysuria, frequency, urgency, hematuria, bowel changes, constipation, incontinence, melena, rashes, recent changes to medication, injury, or trauma. The patient denies any jaundice, nathaniel-colored stool, or dark urine.? Admit 98.5, 141/66, 50, 16, 95% on room air.? WBC 13.5, neutrophils 9800, mono 1,100, platelets 131.? Bicarb 33, glucose 152, bili 1.9, AST 246, ALT 258, lipase 23,234, GGT 247, LDH negative, urine negative, hepatitis and blood culture panels pending.? Abdominal ultrasound demonstrates cholelithiasis without cholecystitis, increased hepatic echogenicity likely steatosis.? Patient admitted for acute pancreatitis, transaminitis, with thrombocytopenia. Discharge Providers Provider Date of admission: 08/02/22 03:55 Discharge Date: 08/03/22 Primary care physician: Shelia Mathew MD Consults: 08/02/22 02:49 Consult to Dietitian, Adult Urgent Comment: Reason For Exam: pancreatitis/bmi32.4 Discharge provider: Janny Cordero MD Summary Hospital Course Discharge Diagnosis: 1. Acute interstitial pancreatitis, with concern for potential gallstone pancreatitis, improved 2. Cholelithiasis without cholecystitis 3. Transaminitis, improved 4. Thrombocytopenia, mild, improved 5. Hypertension 6. Dyslipidemia 7. Coronary artery disease status post CABG x3 vessels 8. Class 1 obesity 9. Left lower lung nodule incidentally seen on MRCP Hospital Course: Patient presented with acute onset of abdominal pain, nausea, and vomiting. He presented to the emergency department where he was found to have a lipase of 23,234, elevated AST at 246, ALT elevated to 158, and elevated bilirubin at 1.9. Also had a mild leukocytosis at 13.5. Abdominal ultrasound was done which revealed cholelithiasis without evidence of cholecystitis. There was increased hepatic echogenicity compatible with steatosis. Abdominal CT was subsequently performed and revealed no CT evidence of acute pancreatitis. No acute peripancreatic fluid collections or evidence of necrosis. There is cholelithiasis without CT evidence of acute cholecystitis. A peripherally calcified cyst within the spleen likely reflecting sequelae of prior infection. Due to the transaminitis, lack of evidence of pancreatitis, and somewhat unclear overall picture, MRCP was subsequently performed on the date of admission. It revealed acute interstitial pancreatitis without acute peripancreatic collection. Again cholelithiasis without evidence of acute cholecystitis or choledocholithiasis was noted. A cystic mass with an indeterminate signal within the spleen was felt likely to be a chronic pseudocyst. Incidental note was made of a 7-8 mm solid nodule in the left lung base with recommendation of 6-12 month follow-up per Fleischner society guidelines. On the day of admission, labs were repeated. His white blood cell count had normalized. Platelet count was slightly low at 108. Bilirubin had normalized. AST was 139, ALT was 208, and alkaline phosphatase was normal at 80. Amylase was 1076. Lipase was dramatically improved at 3751. Patient was admitted for bowel rest and further monitoring. He tolerated a clear liquid diet on the date of admission. CRP was performed and was within normal limits. He became frustrated as he was being boarded in the emergency department and had plan to leave against medical advice. However, he reports he subsequently had some additional nausea and vomiting and elected to stay. On the date of discharge, his lipase had completely normalized, as had his AST. ALT was again improved from 208-124. Diet was advanced to full liquids which he tolerated well. Ultimately, it is suspected that he either briefly had an obstructing stone or sludge within his common bile duct that caused his acute transaminitis and pancreatitis. He dramatically improved over 24 hours. I have recommended that he follow-up with General surgery for consideration of laparoscopic c holecystectomy. He is discharged home with Zofran as needed. However, he is not required any analgesics for pain since admission, thus no pain medications were sent with him at discharge. There was incidental finding of a left lower lung nodule on MRCP. He is encouraged to follow-up with his PCP to get a CT scan ordered for 6-12 months from now. Exam Vital Signs (past 8 hours): Oxygen Delivery Method Room Air Oxygen Flow Rate 0 Narrative Exam Narrative: GEN: Pleasant middle-aged male, Alert and oriented x 3, NAD HEENT:NC, Face symmetric CHEST: Respiratory excursions symmetric, CTAB CV: RRR, no M/R/G ABD: Soft, NT/ND, BT present in all 4 quadrants, no organomegaly or masses EXTR: warm, well perfused, no C/C/E SKIN: warm and dry, no rash NEURO: Alert and oriented x 3, nonfocal Objective Labs 08/03/22 05:39 08/03/22 05:39 Labs: Laboratory Results - last 24 hr 08/03/22 08/03/22 08/03/22 05:39 05:39 05:39 WBC 7.8 RBC 4.66 Hgb 13.5 Hct 40.6 L MCV 87.1 MCH 29.0 MCHC 33.3 RDW 13.3 Plt Count 109 L Neut % (Auto) 46.7 L Lymph % (Auto) 41.5 H Hand % (Auto) 9.2 Eos % (Auto) 2.2 Baso % (Auto) 0.4 Neut # (Auto) 3700 Lymph # (Auto) 3300 Hand # (Auto) 700 Eos # (Auto) 200 Baso # (Auto) 0 Sodium 135 L Potassium 4.1 Chloride 103 Carbon Dioxide 28 BUN 13 Creatinine 0.95 Estimated GFR > 60 BUN/Creatinine Ratio 13.7 Glucose 84 Calcium 8.2 L Total Bilirubin 1.1 AST 57 ALT 124 H Alkaline Phosphatase 65 Total Protein 5.7 L Albumin 3.2 L Globulin 2.5 Albumin/Globulin Ratio 1.3 Lipase 113 D PFSH Medical History (Updated 08/02/22 @ 04:39 by MELVINA Santiago) CAD (coronary artery disease) Dyslipidemia GERD (gastroesophageal reflux disease) Hypertension Obesity (BMI 30.0-34.9) Prediabetes Surgical History S/P CABG x 3 Family History Mother No problems noted. Father No problems noted. Social History household members: family Smoking Status: Never smoker alcohol intake: never substance use type: does not use Discharge Plan Discharge Plan Patient Disposition: Home Provider Discharge Comment: You were admitted w/pancreatitis in the setting of known gallstones. I suspect you had a gallstone or sludge stuck in your bile d uct that self-resolved but caused pancreatitis. Please follow-up with a general surgeon here at [facility] to consult for a cholecystectomy (gallbladder removal) as you remain at risk for recurrent episodes of pancreatitis due to gallstones. Continue advancing your diet to a low fat regular diet as tolerated. If you have worsening nausea/abdominal pain, restart a clear liquid or full liquid diet. Return to the ED for fevers, inability to hold down food/fluids, worsening pain, chest pain or shortness of breath. There was an incidental finding of a nodule in your left lower lung. Please have your PCP schedule you for a repeat CT scan of your chest in 6-12 months to recheck. Discharge orders & Medications Prescriptions: New ondansetron 4 mg tablet,disintegrating 4 mg PO Q8H PRN (Reason: nausea and vomiting) Qty: 20 0RF Continued aspirin 81 MG tablet,delayed release (DR/EC) 81 mg PO QAM Qty: 0 atorvastatin 80 MG tablet 80 mg PO BEDTIME Qty: 0 tramadol 50 mg tablet 50 mg PO Q6H PRN (Reason: pain) Qty: 10 0RF potassium chloride 10 mEq tablet extended release 10 meq PO QAM lisinopril 40 mg tablet 40 mg PO BEDTIME cholecalciferol (vitamin D3) 1,000 unit tablet 1,000 unit PO QAM metoprolol succinate 100 mg tablet extended release 24 hr 100 mg PO QAM furosemide 40 mg tablet 40 mg PO QAM Patient Comments: take 1 tablet by mouth once daily hydrocodone-acetaminophen [[place]] 5-325 mg tablet 1 tab PO Q4-6H PRN (Reason: pain) Qty: 10 0RF Follow up/Referrals: Shelia Mathew MD [Primary Care Provider] - Diet/Activity/Treatments Diet: Diet as Tolerated and Low-fat Activity: As tolerated Oxygen: N/A Visit Report/Discharge Packet Instructions: Acute Pancreatitis Stand Alone Forms: Patient Portal/API, Stroke Signs & Symptoms Discharge Data Primary Care Provider: Shelia Mathew Quality VTE Deep Vein Thrombosis/Pulmonary Embolism Present on Admission: No
[2022-08-05 07:47] LABS: HBsAg Screen Negative (Negative); Hepatitis A Antibody IgM Negative (Negative); Hepatitis B Core Antibody IgM Negative (Negative); Hepatitis C Antibody Non Reactive (Non Reactive)
== END 2022-08-03 13:53 | disposition home or self-care (01) | DRG 440 ==
LOC: ED 08-02 01:52 → AC 08-02 03:56
PROVIDERS: Family Medicine; Admitting Provider Nurse Practitioner Family; Emergency Provider Emergency Medicine; PCP Family Medicine; Referring Provider Emergency Medicine; Visit Provider Nurse Practitioner Family
DX: K85.80 Other acute pancreatitis without necrosis or infection (principal); D69.6 Thrombocytopenia, unspecified; R74.01 Elevation of levels of liver transaminase levels; I10 Essential (primary) hypertension; E78.5 Hyperlipidemia, unspecified; I25.10 Atherosclerotic heart disease of native coronary artery without angina pectoris; E66.9 Obesity, unspecified; K80.20 Calculus of gallbladder without cholecystitis without obstruction; Z95.1 Presence of aortocoronary bypass graft; Z68.32 Body mass index [BMI] 32.0-32.9, adult; Z20.822 Contact with and (suspected) exposure to COVID-19
CPT/HCPCS: 36415; 74177; 74183; 76705; 80048; 80053; 80061; 80074; 81003; 82150; 82962; 82977; 83615; 83690; 83735; 85025; 85610; 86140; 87040; 87635; 93005; 93010; 96372; 96374; 96376; 99284; C9803; J0780; J1650; J2405; Q9967

== ENCOUNTER 2022-10-28 07:59 | Emergency (ER) | payer MEDICARE, MEDICAID, SELFPAY ==
[2022-08-02 15:37] VITALS: BMI 33.4
[2022-10-28] VITALS (18 sets, daily range): BP systolic 94–131; BP diastolic 46–76; PULSE 38–54; RESP 11–16; TEMP 36.4; O2SAT 95–100; BMI 30.7
--- NOTE | 2022-10-28 08:30 | ED_ITS ---
HPI - Abdominal Pain General Chief Complaint: Abdominal Pain Stated Complaint: severe ABD pain Time Seen by Provider: 10/28/22 08:23 Source: patient Mode of arrival: Ambulatory History of Present Illness HPI narrative: Patient brought here by family for complaints of epigastric/right upper quadrant pain that started this morning after eating fried eggs. Patient has history of gallstone pancreatitis. Was admitted here in July of this year for the same. Patient has not had surgery on his gallbladder. Denies any alcohol abuse or use . Denies any back pain or chest pain. Has bloated sensation just like he did back in July of this year. No nausea or vomiting. No syncope. Related Data Home Medications Medication Instructions Recorded Confirmed aspirin 81 mg tablet,delayed 81 mg PO QAM ##0 09/22/03 08/02/22 release atorvastatin 80 mg tablet 80 mg PO BEDTIME ##0 02/27/17 08/02/22 cholecalciferol (vitamin D3) 25 1,000 unit PO QAM 06/08/18 08/02/22 mcg (1,000 unit) tablet lisinopril 40 mg tablet 40 mg PO BEDTIME 06/08/18 08/02/22 potassium chloride 10 mEq 10 meq PO QAM 06/08/18 08/02/22 tablet,extended release furosemide 40 mg tablet 40 mg PO QAM 05/15/19 08/02/22 metoprolol succinate 100 mg 100 mg PO QAM 05/15/19 08/02/22 tablet,extended release 24 hr Previous Rx's Medication Instructions Recorded hydrocodone 5 mg-acetaminophen 325 1 tab PO Q4-6H PRN pain #10 tabs 03/26/20 mg tablet ([place]) tramadol 50 mg tablet 50 mg PO Q6H PRN pain #10 tabs 06/27/22 ondansetron 4 mg disintegrating 4 mg PO Q8H PRN nausea and 08/03/22 tablet vomiting #20 tabs Allergies Allergy/AdvReac Type Severity Reaction Status Date / Time codeine [CODEINE] Allergy Unknown Nausea Verified 10/28/22 08:09 Review of Systems Review of Systems Narrative: GENERAL: negative chills, fatigue, malaise, fever, sweats. HEENT: negative sinus pain, ear pain, sore throat RESPIRATORY: negative dyspnea, cough CARDIOVASCULAR: negative chest pain, palpitations GASTROINTESTINAL: negative nausea, vomiting, positive abdominal pain : negative dysuria, frequency, hematuria MUSCULOSKELETAL: negative muscle or bony pain SKIN: negative rash, skin lesions NEUROLOGIC: negative weakness, numbness ROS Unobtainable: All systems reviewed & are unremarkable except as noted in HPI and below Patient History Medical History CAD (coronary artery disease) Dyslipidemia GERD (gastroesophageal reflux disease) Hypertension Obesity (BMI 30.0-34.9) Prediabetes Surgical History S/P CABG x 3 Family History Mother No problems noted. Father No problems noted. Social History household members: family Smoking Status: Never smoker alcohol intake: never substance use type: does not use Smoking Status: Never smoker alcohol intake frequency: 0-2 drinks per day Substance Use Type: does not use Exam Narrative Exam Narrative: GENERAL: in no distress, not toxic not dyspneic HEAD: Normocephalic. EYES: Pupils equal round ENT: Mucous membranes moist. NECK: Trachea midline. CARDIOVASCULAR: Regular rate and rhythm without murmurs RESPIRATORY: Clear to auscultation. Breath sounds equal bilaterally. No wheezes, rales, or rhonchi. GASTROINTESTINAL: Abdomen soft, reproducible epigastric and right upper quadrant pain/tenderness. No peritoneal signs. No pain out of proportion to exam. Bowel sounds are present. No CVA tenderness. Positive Ware sign EXTREMITIES: No gross deformities. BACK: No flank tenderness. NEURO: AOx4. SKIN: Warm and dry PSYCH: Not anxious, is cooperative Initial Vital Signs Initial Vital Signs: Vital Signs Pulse Oximetry 95 10/28/22 08:02 Course Orders Ordered: Discontinued Medications Sodium Chloride (Normal Saline 0.9%) 1,000 mls @ 1,000 mls/hr IV BOLUS ONE Stop: 10/28/22 09:28 Last Infusion: 10/28/22 10:10 Dose: 0 mls/hr Documented By: Admin: 10/28/22 08:51 Dose: 1,000 mls/hr Documented By: AT Morphine Sulfate (Morphine 4 Mg/Ml Inj) 4 mg IV NOW ONE Stop: 10/28/22 08:30 Last Admin: 10/28/22 08:50 Dose: 4 mg Documented By: AT Ondansetron HCl (Ondansetron 4 Mg/2 Ml Inj) 4 mg IV NOW ONE Stop: 10/28/22 08:30 Last Admin: 10/28/22 12:56 Dose: Not Given Documented By: AT Vital Signs Vital signs: Vital Signs - 8 hr 10/28/22 08:04 10/28/22 08:02 10/28/22 08:03 Temperature 97.5 F L Pulse Rate 51 L 52 L Respiratory Rate 16 Blood Pressure 123/58 L Pulse Oximetry 97 95 97 Oxygen Delivery Method Room Air 10/28/22 08:03 10/28/22 08:30 10/28/22 08:31 Temperature Pulse Rate 43 L 41 L Respiratory Rate 11 L 12 Blood Pressure 123/58 L Pulse Oximetry 100 99 Oxygen Delivery Method Room Air 10/28/22 08:31 10/28/22 09:00 10/28/22 09:01 Temperature Pulse Rate 45 L 46 L Respiratory Rate Blood Pressure 131/62 Pulse Oximetry 96 98 Oxygen Delivery Method Room Air 10/28/22 09:01 10/28/22 09:30 10/28/22 09:30 Temperature Pulse Rate 41 L Respiratory Rate Blood Pressure 94/54 L 106/55 L Pulse Oximetry 99 Oxygen Delivery Method Room Air 10/28/22 10:00 10/28/22 10:01 10/28/22 10:01 Temperature Pulse Rate 45 L 41 L Respiratory Rate Blood Pressure 105/46 L Pulse Oximetry 100 100 Oxygen Delivery Method Room Air 10/28/22 10:30 10/28/22 10:30 10/28/22 11:00 Temperature Pulse Rate 40 L 38 L Respiratory Rate Blood Pressure 107/55 L Pulse Oximetry 99 100 Oxygen Delivery Method 10/28/22 11:01 10/28/22 11:01 Temperature Pulse Rate 38 L Respiratory Rate Blood Pressure 121/53 L Pulse Oximetry 99 Oxygen Delivery Method MDM - Abdominal Pain Lab Data 10/28/22 08:26 10/28/22 08:26 Labs: Lab Results 10/28/22 10/28/22 10/28/22 Range/Units 08:26 08:26 08:26 WBC 9.9 (4.5-11.0) X10^3/uL RBC 5.01 (4.5-5.9) X10^6/uL Hgb 15.0 (13.5-17.5) g/dL Hct 43.8 (41-53) % MCV 87.4 (80-100) fL MCH 30.0 (26-34) PG MCHC 34.3 (30-36) % RDW 13.3 (11.6-14.8) % Plt Count 155 (150-400) X10^3/uL Neut % (Auto) 46.3 L (50-75) % Lymph % (Auto) 38.8 (25-40) % Anderson % (Auto) 12.8 (3-14) % Eos % (Auto) 1.7 L (2-4) % Baso % (Auto) 0.4 (0-2) % Neut # (Auto) 4600 (5381-9924) /uL Lymph # (Auto) 3800 (3983-0682) /uL Anderson # (Auto) 1300 H (0-900) /uL Eos # (Auto) 200 (0-450) /uL Baso # (Auto) 0 (0-100) /uL PT 13.8 H (10.1-12.7) SECONDS INR 1.2 (0.9-1.3) Sodium 134 L (137-145) mmol/L Potassium 3.8 (3.4-5.1) mmol/L Chloride 101 (98-107) mmol/L Carbon Dioxide 24 (22-32) mmol/L BUN 22 H (9-20) mg/dL Creatinine 0.91 (0.66-1.25) mg/dL Estimated GFR > 60 (>60) mL/min BUN/Creatinine Ratio 24.2 H (6-22) Glucose 144 H (80-110) mg/dL Calcium 8.7 (8.4-10.2) mg/dL Total Bilirubin 1.4 H (0.2-1.3) mg/dL AST 102 H (17-59) IU/L ALT 61 H (<50) IU/L Alkaline Phosphatase 75 (38-126) U/L Total Protein 7.1 (6.3-8.2) g/dL Albumin 4.2 (3.5-5.0) g/dL Globulin 2.9 (1.7-4.1) g/dL Albumin/Globulin Ratio 1.4 (1.0-2.8) Lipase 133 (23-300) U/L Imaging Data CT scan - abdomen/pelvis: Radiologist's Impression: [address] [address] [address] Scan Report Signed Patient: Lincoln Lawson MR#: [id number] : 1955 Acct:[id number] Age/Sex: 66 / M Date of Service: 10/28/22 Loc: ED Accession Number: [id number] ?? Procedure: CT abdomen pelvis w con Ordering Provider: Isai Pérez MD PROCEDURE:? CT ABDOMEN PELVIS W CON ? INDICATIONS:? IV contrast only/epigastric pain ? TECHNIQUE:? After the administration of oral and IV contrast, axial sections were acquired from the lung bases to the pubic symphysis.? Coronal and sagittal reformats were performed.? For radiation dose reduction, the following was used:? automated exposure control, adjustment of mA and/or kV according to patient size. ? COMPARISON:? [facility], , US ABDOMEN LIMITED, 06/27/2022, 10:32.? [facility], , US ABDOMEN COMPLETE, 06/08/2018, 10:45.? [facility], MR, MR ABDOMEN WO/W CON, 08/02/2022, 7:26.? [facility], , US ABDOMEN LIMITED, 08/01/2022, 23:39.? [facility], CT, CT ABDOMEN PELVIS W CON, 08/02/2022, 0:16. ? FINDINGS:? Image quality:? Excellent.? ? Lung bases:? There is a 0.8 cm nodule in the left lower lobe (series 6, image 12).? ? Small hiatal hernia. Heart:? Normal size.? [id number] coronary artery calcification. ? ? ABDOMEN: Liver:? Normal size.? Mild hepatic steatosis.? ? Gallbladder:? There are gallstones.? No gallbladder wall thickening or pericholecystic fluid collections? ? Biliary ducts:? Unremarkable.? ? Pancreas:? Unremarkable.? ? Spleen:? There is a large cystic mass in spleen with rim calcification measuring 6.5 by 7.1 x 6.5 cm, unchanged in size compared to the prior exam.? There is an fluid- fluid level within the cyst.? Hyperdense material in the gravity dependent cyst is likely milk of calcium. Adrenal Glands:? Unremarkable.? ? Kidneys and Ureters:? Normal size and symmetrical enhancement.? There is a 1 mm nonobstructive stone in right kidney.? ? ? Stomach and Bowel:? Stomach is distended with an air-fluid level.? Small bowel loops and colon are unremarkable.? Peritoneum:? No abnormal intraperitoneal fluid.? No free air.? ? Ventral Wall: ? There is a fat containing subxiphoid ventral hernia.? Abdominal Nodes:? No retroperitoneal or mesenteric adenopathy by size criteria.? Vessels:? Aorta and inferior vena cava are normal in size.? ? PELVIS: Pelvic Organs:? Unremarkable.? ? Bladder:? Unremarkable.? ? Pelvic Nodes: No enlarged lymph nodes.? Miscellaneous: No inguinal hernias are seen. ? ? ? Bones:? Unremarkable.? IMPRESSION:? ? 1. Stomach is distended with an air-fluid level.? The CT findings is nonspecific and may be secondary to gastroenteritis. No findings to suggest gastric outlet obstruction.? ? 2. Cholelithiasis.? No findings to suggest acute cholecystitis.? ? 3. Stable large rim-calcified mass in spleen, most likely sequelae of infection or trauma.? ? 4. A 2 mm nonobstructive stone in right kidney.? ? 5. Small hiatal hernia. ? 6.? A 0.8 cm subpleural nodule in the left lower lobe unchanged in size since 08/02/2022.? Please see enclosed follow-up recommendation.? Consider a [address] for follow-up. ? ? ? Fleischner Society criteria for SOLID lung nodule followup.? Nodule size (mm)Low-risk patientHigh-risk patient?4No follow-up neededFollow-up at 12 mo; if no change, no further follow-up>6-0Dkkoff-at CT at 12 mo; if no change, no further follow-up needed.Initial follow-up CT at 6-12 mo, then 18-24 mo if no change.? >6-8Initial follow-up CT at 6-12 mo, then 18-24 mo if no change. Initial follow- up CT at 3-6 mo, then 9-12 mo and 24 mo if no change.? >8Follow-up CT at 3, 9, 24 mo.? Or PET and/or biopsy.Same as for low-risk pts.? Fleischner Society criteria for SUB-SOLID lung nodule followup.? Solitary pure ground-glass nodules5 mm or lessNo followup needed.? >5 mm3 mo follow-up CT to confirm persistence.? Then annual CT for 3 years.? Part-solid nodules3 mo follow-up CT to confirm persistence.? If persistent with solid component <5 mm, annual CT for at least 3 years.? If solid component is 5 mm or more, biopsy or surgical resection.? Consider PET-CT for lesions > 10 mm.? Multiple sub-solid nodulesPure ground glass nodules [address] at 2 and 4 years.? Pure ground glass nodules >5 mm without dominant lesion.? [address] to confirm persistence, then annual followup CT for at least 3 years.? Dominant nodule(s) with part-solid or solid component.? [address] to confirm persistence.? If persistent, consider biopsy or surgical resection, kelly if lesions have >5 mm solid component.? ? ? Dictated by: Carlos Bustillo M.D. on 10/28/2022 at 9:15 ? ? Approved by: Carlos Bustillo M.D. on 10/28/2022 at 9:31 ? US - abdomen: Radiologist's Impression: [place] [address] Ultrasound Report Signed Patient: Lincoln Lawson MR#: [id number] : 1955 Acct:[id number] Age/Sex: 66 / M Date of Service: 10/28/22 Loc: ED Accession Number: [id number] ?? Procedure: US abdomen limited Ordering Provider: Isai Pérez MD PROCEDURE: US ABDOMEN LIMITED ? INDICATIONS:? ruq pain ? TECHNIQUE:? Real-time focused scanning was performed of the abdomen, with image documentation.? ? COMPARISON:? [facility], CT, CT ABDOMEN PELVIS W CON, 10/28/2022, 8:40.? [facility], US, US ABDOMEN LIMITED, 08/01/2022, 23:39. ? FINDINGS:? Increased echogenicity in the liver corresponds to diffuse hepatic steatosis seen on CT. ? Multiple gallstones numerous tiny gallstones are present in the gallbladder.? No gallbladder wall thickening.? No Ware sign.? No fluid around the gallbladder. ? No dilated ducts.? Common duct measures 3 mm. ? Pancreas is not visualized secondary to overlying bowel gas.? It is unremarkable on CT.? ? IMPRESSION:? ? 1. Cholelithiasis without evidence of acute cholecystitis. ? 2. Diffuse hepatic steatosis. ? Dictated by: Ruddy Bates M.D. on 10/28/2022 at 12:25 ? ? Approved by: Ruddy Bates M.D. on 10/28/2022 at 12:27 ? MDM Narrative Medical decision making narrative: Patient brought here by family for complaints of epigastric/right upper quadrant pain that started this morning after eating fried eggs. Patient has history of gallstone pancreatitis. Was admitted here in July of this year for the same. Patient has not had surgery on his gallbladder. Denies any alcohol abuse or use. Denies any back pain or chest pain. Has bloated sensation just like he did back in July of this year. No nausea or vomiting. No syncope. After history and exam CBC CMP lipase morphine Zofran normal saline CT abdomen pelvis Heart rate noted. This is patient's baseline [facility] CC: Epigastric abdominal pain Complicating co-morbidities: History gallstone pancreatitis Data collected from: Patient Medical records reviewed: Discharge summary from this hospital August 03, 2022 Differential considered: Includes but not limited to cholecystitis symptomatic cholelithiasis gallstone pancreatitis, pancreatitis aortic dissection CT Exam documented above, pertinent findings include: Reproducible epigastric right upper quadrant tenderness Lab Test results independently reviewed as above. Pertinent findings: WBC 9.9 hemoglobin 15 hematocrit 43.8 platelets 155 INR 1.2 sodium 134 potassium 3.8 GFR greater than 60 AST 102 ALT 61 alkaline phosphatase 75 Independently reviewed EKG sinus bradycardia rate 48 otherwise normal EKG no ST elevation or depression Imaging studies independently reviewed: CT abdomen pelvis no acute process, cholelithiasis present but no evidence of acute cholecystitis Abdominal ultrasound cholelithiasis without cholecystitis Consultations: None required at this time Treatments: Morphine Zofran normal saline Re-evaluations: 11:10 a.m.. Updated patient results. Pain has resolved with medications given here. He does agree for ultrasound here of the gallbladder. Laboratory studies reviewed and had elevated liver enzymes in the past. Otherwise CT scan does show gallstones without evidence of cholecystitis. 12:47 p.m.. Patient is pain-free. Reviewed ultrasound results with him. Gave him referral for Dr. Gupta, general surgeon to see for elective cholecystectomy. No signs of cholecystitis today. Laboratory studies otherwise reassuring Discussion: Appropriate for discharge home. Friday this morning may have trig gered his gallstone causing biliary colic/pain. Patient is pain-free at this time of discharge. Otherwise exam and laboratory studies imaging reassuring. No signs of cholecystitis on imaging. Patient agrees with treatment plan and desires discharge home and follow up with General surgery, Dr. Gupta, heart rate noted but patient is at baseline according to previous vital signs. Patient is not dizzy when standing. Return precautions reviewed with him. He desires discharge home. 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 Diagnosis: Cholelithiasis Discharge Plan Departure Patient Disposition: Home Clinical Impression: Cholelithiasis Instructions: DI for Gallstones Activity Restrictions/Additional Instructions: No driving or operating machinery today. Please call Dr. Gupta, general surgery provider office today to schedule appointment for re-evaluation of your abdominal pain and possibly removal of your gallbladder. No fried fatty greasy foods. Return if worse if any questions or concerns. Your laboratory studies and imaging suggest today that gallstones may have been causing your pain this morning. Prescriptions: No Action aspirin 81 MG tablet,delayed release (DR/EC) 81 mg PO QAM Qty: 0 atorvastatin 80 MG tablet 80 mg PO BEDTIME Qty: 0 tramadol 50 mg tablet 50 mg PO Q6H PRN (Reason: pain) Qty: 10 0RF ondansetron 4 mg tablet,disintegrating 4 mg PO Q8H PRN (Reason: nausea and vomiting) Qty: 20 0RF potassium chloride 10 mEq tablet extended release 10 meq PO QAM lisinopril 40 mg tablet 40 mg PO BEDTIME cholecalciferol (vitamin D3) 1,000 unit tablet 1,000 unit PO QAM metoprolol succinate 100 mg tablet extended release 24 hr 100 mg PO QAM furosemide 40 mg tablet 40 mg PO QAM Patient Comments: take 1 tablet by mouth once daily hydrocodone-acetaminophen [[place]] 5-325 mg tablet 1 tab PO Q4-6H PRN (Reason: pain) Qty: 10 0RF Referrals: Shelia Mathew MD [Primary Care Provider] - Christian Gupta MD [Physician] - Stand Alone Forms: Patient Portal/API
--- NOTE | 2022-10-28 08:30 | DI.CT.S_ITS ---
PROCEDURE: CT ABDOMEN PELVIS W CON INDICATIONS: IV contrast only/epigastric pain TECHNIQUE: After the administration of oral and IV contrast, axial sections were acquired from the lung bases to the pubic symphysis. Coronal and sagittal reformats were performed. For radiation dose reduction, the following was used: automated exposure control, adjustment of mA and/or kV according to patient size. COMPARISON: [facility], US, US ABDOMEN LIMITED, 06/27/2022, 10:32. [facility], US, US ABDOMEN COMPLETE, 06/08/2018, 10:45. [facility], MR, MR ABDOMEN WO/W CON, 08/02/2022, 7:26. [facility], US, US ABDOMEN LIMITED, 08/01/2022, 23:39. [facility], CT, CT ABDOMEN PELVIS W CON, 08/02/2022, 0:16. FINDINGS: Image quality: Excellent. Lung bases: There is a 0.8 cm nodule in the left lower lobe (series 6, image 12). Small hiatal hernia. Heart: Normal size. Nzna-lp-cnzyherm coronary artery calcification. ABDOMEN: Liver: Normal size. Mild hepatic steatosis. Gallbladder: There are gallstones. No gallbladder wall thickening or pericholecystic fluid collections Biliary ducts: Unremarkable. Pancreas: Unremarkable. Spleen: There is a large cystic mass in spleen with rim calcification measuring 6.5 by 7.1 x 6.5 cm, unchanged in size compared to the prior exam. There is an fluid-fluid level within the cyst. Hyperdense material in the gravity dependent cyst is likely milk of calcium. Adrenal Glands: Unremarkable. Kidneys and Ureters: Normal size and symmetrical enhancement. There is a 1 mm nonobstructive stone in right kidney. Stomach and Bowel: Stomach is distended with an air-fluid level. Small bowel loops and colon are unremarkable. Peritoneum: No abnormal intraperitoneal fluid. No free air. Ventral Wall: There is a fat containing subxiphoid ventral hernia. Abdominal Nodes: No retroperitoneal or mesenteric adenopathy by size criteria. Vessels: Aorta and inferior vena cava are normal in size. PELVIS: Pelvic Organs: Unremarkable. Bladder: Unremarkable. Pelvic Nodes: No enlarged lymph nodes. Miscellaneous: No inguinal hernias are seen. Bones: Unremarkable. IMPRESSION: 1. Stomach is distended with an air-fluid level. The CT findings is nonspecific and may be secondary to gastroenteritis. No findings to suggest gastric outlet obstruction. 2. Cholelithiasis. No findings to suggest acute cholecystitis. 3. Stable large rim-calcified mass in spleen, most likely sequelae of infection or trauma. 4. A 2 mm nonobstructive stone in right kidney. 5. Small hiatal hernia. 6. A 0.8 cm subpleural nodule in the left lower lobe unchanged in size since 08/02/2022. Please see enclosed follow-up recommendation. Consider a [address] for follow-up. Fleischner Society criteria for SOLID lung nodule followup. Nodule size (mm)Low-risk patientHigh-risk patient?4No follow-up neededFollow-up at 12 mo; if no change, no further follow-up>2-8Xtagvh-is CT at 12 mo; if no change, no further follow-up needed.Initial follow-up CT at 6-12 mo, then 18-24 mo if no change. >6-8Initial follow-up CT at 6-12 mo, then 18-24 mo if no change. Initial follow-up CT at 3-6 mo, then 9-12 mo and 24 mo if no change. >8Follow-up CT at 3, 9, 24 mo. Or PET and/or biopsy.Same as for low-risk pts. Fleischner Society criteria for SUB-SOLID lung nodule followup. Solitary pure ground-glass nodules5 mm or lessNo followup needed. >5 mm3 mo follow-up CT to confirm persistence. Then annual CT for 3 years. Part-solid nodules3 mo follow-up CT to confirm persistence. If persistent with solid component <5 mm, annual CT for at least 3 years. If solid component is 5 mm or more, biopsy or surgical resection. Consider PET-CT for lesions > 10 mm. Multiple sub-solid nodulesPure ground glass nodules [address] at 2 and 4 years. Pure ground glass nodules >5 mm without dominant lesion. [address] to confirm persistence, then annual followup CT for at least 3 years. Dominant nodule(s) with part-solid or solid component. [address] to confirm persistence. If persistent, consider biopsy or surgical resection, kelly if lesions have >5 mm solid component. Dictated by: Carlos Bustillo M.D. on 10/28/2022 at 9:15 Approved by: Carlos Bustillo M.D. on 10/28/2022 at 9:31
[2022-10-28 08:38] LABS: Add Manual Diff / Slide Review NO; Basophils Absolute Auto 0 /uL (0-100); Basophils Percent Auto 0.4 % (0-2); Eosinophils Absolute Auto 200 /uL (0-450); Eosinophils Percent Auto 1.7 % (2-4); Hematocrit 43.8 % (41-53); Lymphocytes Absolute Auto 3800 /uL (1100-4500); Lymphocytes Percent Auto 38.8 % (25-40); Mean Corpuscular HGB Conc 34.3 % (30-36); Mean Corpuscular Volume 87.4 fL (80-100); Monocytes Absolute Auto 1300 /uL (0-900); Monocytes Percent Auto 12.8 % (3-14); Neutrophils Absolute Auto 4600 /uL (1500-7000); Neutrophils Percent Auto 46.3 % (50-75); Platelet Count 155 X10^3/uL (150-400); Red Blood Cell Count 5.01 X10^6/uL (4.5-5.9); Red Cell Distribution Width 13.3 % (11.6-14.8); White Blood Cell Count 9.9 X10^3/uL (4.5-11.0)
[2022-10-28 08:44] LABS: INR 1.2 (0.9-1.3); Prothrombin Time 13.8 SECONDS (10.1-12.7)
[2022-10-28 08:50] LABS: Alanine Aminotransferase 61 IU/L (<50); Albumin 4.2 g/dL (3.5-5.0); Albumin Globulin Ratio 1.4 (1.0-2.8); Alkaline Phosphatase 75 U/L (38-126); Aspartate Aminotransferase 102 IU/L (17-59); BUN Creatinine Ratio 24.2 (6-22); Bilirubin Total 1.4 mg/dL (0.2-1.3); Blood Urea Nitrogen 22 mg/dL (9-20); Calcium 8.7 mg/dL (8.4-10.2); Carbon Dioxide 24 mmol/L (22-32); Chloride 101 mmol/L (98-107); Estimated Glomerular Filt Rate > 60 mL/min (>60); Globulin 2.9 g/dL (1.7-4.1); Glucose 144 mg/dL (80-110); HEMOLYSIS 39 (0-50); Lipase 133 U/L (23-300); Potassium 3.8 mmol/L (3.4-5.1); Sodium 134 mmol/L (137-145); Total Protein 7.1 g/dL (6.3-8.2)
[2022-10-28] MEDS: MORPHINE 4 MG/ML INJ IV (08:50)
[2022-10-28] MEDS: SODIUM CHLORIDE 0.9% 1,000 ML 1000 ML IV (08:51)
--- NOTE | 2022-10-28 08:51 | PC.NURSE ---
Patient states he took Zofran 4mg SL this morning prior to arrival, denies nausea at this time.
--- NOTE | 2022-10-28 11:03 | DI.US.S_ITS ---
PROCEDURE: US ABDOMEN LIMITED INDICATIONS: ruq pain TECHNIQUE: Real-time focused scanning was performed of the abdomen, with image documentation. COMPARISON: [facility], CT, CT ABDOMEN PELVIS W CON, 10/28/2022, 8:40. [facility], US, US ABDOMEN LIMITED, 08/01/2022, 23:39. FINDINGS: Increased echogenicity in the liver corresponds to diffuse hepatic steatosis seen on CT. Multiple gallstones numerous tiny gallstones are present in the gallbladder. No gallbladder wall thickening. No Ware sign. No fluid around the gallbladder. No dilated ducts. Common duct measures 3 mm. Pancreas is not visualized secondary to overlying bowel gas. It is unremarkable on CT. IMPRESSION: 1. Cholelithiasis without evidence of acute cholecystitis. 2. Diffuse hepatic steatosis. Dictated by: Ruddy Bates M.D. on 10/28/2022 at 12:25 Approved by: Ruddy Bates M.D. on 10/28/2022 at 12:27
--- NOTE | 2022-10-28 11:42 | PC.NURSE ---
Patient noted to have heart rates in the 38 to 40's, Dr. Pérez aware. Pt states he takes 100mg metoprolol and it is normal for his heart rate to be in the 40's, states his providers relate it to his metoprolol.
== END 2022-10-28 12:58 | disposition home or self-care (01) ==
PROVIDERS: Emergency Provider Emergency Medicine; PCP Family Medicine
DX: K80.20 Calculus of gallbladder without cholecystitis without obstruction (principal); Z79.899 Other long term (current) drug therapy
CPT/HCPCS: 36415; 74177; 76705; 80053; 83690; 85025; 85610; 93005; 93010; 96361; 96374; 99284; J2270; Q9967

== ENCOUNTER 2023-06-10 05:42 | Emergency (ER) | payer MEDICARE, MEDICAID, SELFPAY ==
[2022-08-02 15:37] VITALS: BMI 33.4
[2023-06-10] VITALS (93 sets, daily range): BP systolic 68–181; BP diastolic 34–82; PULSE 37–62; RESP 5–34; TEMP 36.4; O2SAT 96–100; BMI 25.1
--- NOTE | 2023-06-10 06:05 | ED_ITS ---
HPI - Abdominal Pain <Ioana Poe DO - Last Filed: 06/17/23 07:08> General Chief Complaint: Abdominal Pain Stated Complaint: chest pain Time Seen by Provider: 06/10/23 05:59 Source: patient Mode of arrival: Family Vehicle History of Present Illness HPI narrative: Patient is a 67-year-old male history of CABG three-vessel bypass, coronary artery disease hypertension hyperlipidemia recurrent pancreatitis cholelithiasis presenting today with right upper quadrant pain. He has previously had episodes of gallbladder attacks. He started to notice a little bit of discomfort yesterday but this morning was quite severe. He felt very hot and sweaty. He is noted to be hypotensive on arrival rate is in the 50s he is afebrile. He denies any chest pain palpitations shortness of breath dizziness or lightheadedness. Related Data Home Medications Medication Instructions Recorded Confirmed aspirin 81 mg tablet,delayed 81 mg PO QAM ##0 09/22/03 06/10/23 release atorvastatin 80 mg tablet 80 mg PO BEDTIME ##0 02/27/17 06/10/23 cholecalciferol (vitamin D3) 25 1,000 unit PO QAM 06/08/18 06/10/23 mcg (1,000 unit) tablet lisinopril 40 mg tablet 40 mg PO BEDTIME 06/08/18 06/10/23 metoprolol succinate 100 mg 100 mg PO QAM 05/15/19 06/10/23 tablet,extended release 24 hr Allergies Allergy/AdvReac Type Severity Reaction Status Date / Time codeine [CODEINE] AdvReac Intermediate Nausea Verified 06/10/23 08:23 Review of Systems <Alexandra Banda DO - Last Filed: 06/10/23 18:24> Review of Systems ROS Unobtainable: All systems reviewed & are unremarkable except as noted in HPI and below Patient History <Ioana Poe DO - Last Filed: 06/17/23 07:08> Medical History CAD (coronary artery disease) Dyslipidemia GERD (gastroesophageal reflux disease) Hypertension Obesity (BMI 30.0-34.9) Prediabetes Surgical History S/P CABG x 3 Family History Mother No problems noted. Father No problems noted. Social History household members: family Smoking Status: Never smoker alcohol intake: never substance use type: does not use Smoking Status: Never smoker alcohol intake frequency: 0-2 drinks per day Substance Use Type: does not use Exam <DO Cathy Rodrigues Last Filed: 06/17/23 07:08> Initial Vital Signs Initial Vital Signs: Vital Signs Temperature 97.5 F L 06/10/23 05:44 Pulse Rate 48 L 06/10/23 05:44 Respiratory Rate 20 06/10/23 05:44 Blood Pressure 91/47 L 06/10/23 05:44 Pulse Oximetry 99 06/10/23 05:44 Oxygen Delivery Method Room Air 06/10/23 05:44 GENERAL: Alert slightly pale 67-year-old awake alert oriented no acute distress HEENT: Head atraumatic,EOMI, pupils reactive, face symmetric, moist mucous membranes CARDIOVASCULAR: Regular rate and rhythm without murmurs, rubs or gallops. A scar along sternum into upper epigastric region RESPIRATORY: Breath sounds equal bilaterally, no wheezes rales or rhonchi. ABDOMEN: Soft, mild right upper quadrant pain without guarding or rebound EXTREMITIES: Normal range of motion, no clubbing or edema. Neurovascularly intact NEUROLOGICAL: Alert and oriented x4.Normal gait and speech. SKIN: Warm, dry, no laceration, no petechiae, no rashes or lesions. <Alexandra Banda DO - Last Filed: 06/10/23 18:24> Initial Vital Signs Initial Vital Signs: Vital Signs Temperature 97.5 F L 06/10/23 05:44 Pulse Rate 48 L 06/10/23 05:44 Respiratory Rate 20 06/10/23 05:44 Blood Pressure 91/47 L 06/10/23 05:44 Pulse Oximetry 99 06/10/23 05:44 Oxygen Delivery Method Room Air 06/10/23 05:44 Course <DO Cathy Rodrigues Last Filed: 06/17/23 07:08> Orders Ordered: Discontinued Medications Sodium Chloride (Normal Saline 0.9%) 1,000 mls @ 1,000 mls/hr IV CONT NESHA Last Infusion: 06/10/23 07:08 Dose: Infused Documented By: Admin: 06/10/23 06:19 Dose: 1,000 mls/hr Documented By: BB Sodium Chloride (Normal Saline 0.9%) 1,000 mls @ 1,000 mls/hr IV BOLUS ONE Stop: 06/10/23 07:35 Last Infusion: 06/10/23 07:10 Dose: Infused Documented By: Admin: 06/10/23 06:52 Dose: 1,000 mls/hr Documented By: BB NOREPINEPHRINE BITARTRATE/D5W (Levophed) 4 mg in 250 mls @ 30.618 mls/hr IV TITRATE NESHA; Protocol Last Titration: 06/10/23 13:38 Dose: 0.02 mcg/kg/min, 7.5 mls/hr Documented By: RLS(2) Titration: 06/10/23 11:49 Dose: 0.02 mcg/kg/min, 7.5 mls/hr Documented By: RLS(2) Titration: 06/10/23 11:47 Dose: 0.025 mcg/kg/min, 7.654 mls/hr Documented By: RLS(2) Titration: 06/10/23 09:00 Dose: 0.05 mcg/kg/min, 15 mls/hr Documented By: Admin: 06/10/23 06:51 Dose: 0.1 mcg/kg/min, 30.618 mls/hr Documented By: BB Piperacillin Sod/Tazobactam (Sod 4.5 gm/ Sodium Chloride) 100 mls @ 200 mls/hr IV NOW ONE Stop: 06/10/23 06:54 Last Infusion: 06/10/23 07:18 Dose: Infused Documented By: Admin: 06/10/23 07:02 Dose: 200 mls/hr Documented By: BB Acetaminophen (Ofirmev) 1,000 mg in 100 mls @ 400 mls/hr IV NOW ONE Stop: 06/10/23 07:13 Last Infusion: 06/10/23 07:15 Dose: Infused Documented By: Admin: 06/10/23 07:01 Dose: 400 mls/hr Documented By: BB Sodium Chloride (Normal Saline 0.9%) 2,449.41 mls @ 816.47 mls/hr 30 ml/kg infuse over 3 hr (2449.41 ml) IV NOW ONE Stop: 06/10/23 10:06 Last Infusion: 06/10/23 08:52 Dose: Infused Documented By: Admin: 06/10/23 07:16 Dose: 816.47 mls/hr Documented By: VIRGEN Sodium Chloride (Normal Saline 0.9%) 1,000 mls @ 200 mls/hr IV CONT NESHA Last Infusion: 06/10/23 13:38 Dose: 200 mls/hr Documented By: MANDY(2) Admin: 06/10/23 09:21 Dose: 200 mls/hr Documented By: MANDY Piperacillin Sod/Tazobactam (Sod 4.5 gm/ Sodium Chloride) 100 mls @ 25 mls/hr IV Q8H [facility] Last Infusion: 06/10/23 13:38 Dose: 25 mls/hr Documented By: MANDY(2) Infusion: 06/10/23 11:15 Dose: 25 mls/hr Documented By: Infusion: 06/10/23 10:48 Dose: 0 mls/hr Documented By: Admin: 06/10/23 09:21 Dose: 25 mls/hr Documented By: MANDY Ondansetron HCl (Ondansetron 4 Mg/2 Ml Inj) 4 mg IV NOW ONE Stop: 06/10/23 06:08 Last Admin: 06/10/23 07:17 Dose: Not Given Documented By: VIRGEN Vital Signs Vital signs: Vital Signs - 8 hr 06/10/23 10:25 06/10/23 10:25 06/10/23 10:30 Pulse Rate 43 L 42 L Respiratory Rate 21 18 Blood Pressure 104/56 L Pulse Oximetry 100 100 Oxygen Delivery Method 06/10/23 10:30 06/10/23 10:35 06/10/23 10:35 Pulse Rate 44 L Respiratory Rate 21 Blood Pressure 112/58 L 111/58 L Pulse Oximetry 100 Oxygen Delivery Method 06/10/23 10:40 06/10/23 10:40 06/10/23 10:45 Pulse Rate 43 L 51 L Respiratory Rate 21 23 Blood Pressure 104/55 L Pulse Oximetry 100 100 Oxygen Delivery Method 06/10/23 10:45 06/10/23 10:50 06/10/23 10:53 Pulse Rate 62 43 L Respiratory Rate 20 21 Blood Pressure 90/48 L Pulse Oximetry 98 100 Oxygen Delivery Method 06/10/23 10:53 06/10/23 10:55 06/10/23 10:55 Pulse Rate 49 L Respiratory Rate 20 Blood Pressure 104/58 L 100/56 L Pulse Oximetry 97 Oxygen Delivery Method 06/10/23 11:00 06/10/23 11:00 06/10/23 11:05 Pulse Rate 45 L 44 L Respiratory Rate 12 17 Blood Pressure 117/57 L Pulse Oximetry 100 100 Oxygen Delivery Method 06/10/23 11:05 06/10/23 11:10 06/10/23 11:10 Pulse Rate 45 L Respiratory Rate 20 Blood Pressure 109/55 L 107/54 L Pulse Oximetry 100 Oxygen Delivery Method 06/10/23 11:15 06/10/23 11:15 06/10/23 11:20 Pulse Rate 46 L 45 L Respiratory Rate 12 19 Blood Pressure 109/57 L Pulse Oximetry 100 98 Oxygen Delivery Method 06/10/23 11:20 06/10/23 11:25 06/10/23 11:25 Pulse Rate 47 L Respiratory Rate 11 L Blood Pressure 107/57 L 103/54 L Pulse Oximetry 99 Oxygen Delivery Method 06/10/23 11:30 06/10/23 11:30 06/10/23 11:35 Pulse Rate 46 L 50 L Respiratory Rate 16 12 Blood Pressure 106/56 L Pulse Oximetry 99 100 Oxygen Delivery Method Room Air 06/10/23 11:35 06/10/23 11:41 06/10/23 11:41 Pulse Rate 46 L Respiratory Rate 32 H Blood Pressure 104/55 L 117/62 Pulse Oximetry 100 Oxygen Delivery Method 06/10/23 11:45 06/10/23 11:45 06/10/23 11:50 Pulse Rate 46 L Respiratory Rate 24 Blood Pressure 123/60 120/58 L Pulse Oximetry 100 Oxygen Delivery Method 06/10/23 11:50 06/10/23 11:55 06/10/23 11:55 Pulse Rate 44 L 44 L Respiratory Rate 15 23 Blood Pressure 112/55 L Pulse Oximetry 99 99 Oxygen Delivery Method Room Air 06/10/23 12:00 06/10/23 12:00 06/10/23 12:05 Pulse Rate 44 L Respiratory Rate 20 Blood Pressure 110/56 L 130/58 L Pulse Oximetry 100 Oxygen Delivery Method 06/10/23 12:05 06/10/23 12:10 06/10/23 12:10 Pulse Rate 44 L 50 L Respiratory Rate 21 20 Blood Pressure 104/50 L Pulse Oximetry 100 100 Oxygen Delivery Method 06/10/23 12:15 06/10/23 12:16 06/10/23 12:16 Pulse Rate 43 L 43 L Respiratory Rate 16 17 Blood Pressure 118/57 L Pulse Oximetry 98 100 Oxygen Delivery Method 06/10/23 12:21 06/10/23 12:21 06/10/23 12:25 Pulse Rate 42 L 43 L Respiratory Rate 24 21 Blood Pressure 119/60 Pulse Oximetry 99 100 Oxygen Delivery Method 06/10/23 12:25 06/10/23 12:30 06/10/23 12:30 Pulse Rate 47 L Respiratory Rate 18 Blood Pressure 123/60 118/58 L Pulse Oximetry 100 Oxygen Delivery Method 06/10/23 12:35 06/10/23 12:35 06/10/23 12:40 Pulse Rate 57 L 43 L Respiratory Rate 27 H Blood Pressure 107/64 Pulse Oximetry 99 100 Oxygen Delivery Method 06/10/23 12:40 06/10/23 12:45 06/10/23 12:45 Pulse Rate 43 L Respiratory Rate 16 Blood Pressure 111/63 113/60 Pulse Oximetry 100 Oxygen Delivery Method 06/10/23 12:55 06/10/23 12:55 06/10/23 13:00 Pulse Rate 49 L 43 L Respiratory Rate 14 10 L Blood Pressure 132/60 Pulse Oximetry 100 98 Oxygen Delivery Method 06/10/23 13:00 06/10/23 13:05 06/10/23 13:05 Pulse Rate 45 L Respiratory Rate 18 Blood Pressure 128/59 L 116/59 L Pulse Oximetry 100 Oxygen Delivery Method 06/10/23 13:11 06/10/23 13:11 06/10/23 13:15 Pulse Rate 46 L Respiratory Rate 7 L Blood Pressure 131/63 125/58 L Pulse Oximetry 99 Oxygen Delivery Method 06/10/23 13:15 06/10/23 13:21 06/10/23 13:21 Pulse Rate 44 L 44 L Respiratory Rate 12 16 Blood Pressure 142/62 H Pulse Oximetry 100 100 Oxygen Delivery Method 06/10/23 13:26 06/10/23 13:26 06/10/23 13:30 Pulse Rate 50 L 45 L Respiratory Rate 19 Blood Pressure 124/82 Pulse Oximetry 96 100 Oxygen Delivery Method 06/10/23 13:30 Pulse Rate Respiratory Rate Blood Pressure 122/60 Pulse Oximetry Oxygen Delivery Method <Alexandra Banda, - Last Filed: 06/10/23 18:24> Orders Ordered: Discontinued Medications Sodium Chloride (Normal Saline 0.9%) 1,000 mls @ 1,000 mls/hr IV CONT NESHA Last Infusion: 06/10/23 07:08 Dose: Infused Documented By: Admin: 06/10/23 06:19 Dose: 1,000 mls/hr Documented By: BB Sodium Chloride (Normal Saline 0.9%) 1,000 mls @ 1,000 mls/hr IV BOLUS ONE Stop: 06/10/23 07:35 Last Infusion: 06/10/23 07:10 Dose: Infused Documented By: Admin: 06/10/23 06:52 Dose: 1,000 mls/hr Documented By: BB NOREPINEPHRINE BITARTRATE/D5W (Levophed) 4 mg in 250 mls @ 30.618 mls/hr IV TITRATE NESHA; Protocol Last Titration: 06/10/23 13:38 Dose: 0.02 mcg/kg/min, 7.5 mls/hr Documented By: RLS(2) Titration: 06/10/23 11:49 Dose: 0.02 mcg/kg/min, 7.5 mls/hr Documented By: RLS(2) Titration: 06/10/23 11:47 Dose: 0.025 mcg/kg/min, 7.654 mls/hr Documented By: RLS(2) Titration: 06/10/23 09:00 Dose: 0.05 mcg/kg/min, 15 mls/hr Documented By: Admin: 06/10/23 06:51 Dose: 0.1 mcg/kg/min, 30.618 mls/hr Documented By: BB Piperacillin Sod/Tazobactam (Sod 4.5 gm/ Sodium Chloride) 100 mls @ 200 mls/hr IV NOW ONE Stop: 06/10/23 06:54 Last Infusion: 06/10/23 07:18 Dose: Infused Documented By: Admin: 06/10/23 07:02 Dose: 200 mls/hr Documented By: BB Acetaminophen (Ofirmev) 1,000 mg in 100 mls @ 400 mls/hr IV NOW ONE Stop: 06/10/23 07:13 Last Infusion: 06/10/23 07:15 Dose: Infused Documented By: Admin: 06/10/23 07:01 Dose: 400 mls/hr Documented By: VIRGEN Sodium Chloride (Normal Saline 0.9%) 2,449.41 mls @ 816.47 mls/hr 30 ml/kg infuse over 3 hr (2449.41 ml) IV NOW ONE Stop: 06/10/23 10:06 Last Infusion: 06/10/23 08:52 Dose: Infused Documented By: Admin: 06/10/23 07:16 Dose: 816.47 mls/hr Documented By: VIRGEN Sodium Chloride (Normal Saline 0.9%) 1,000 mls @ 200 mls/hr IV CONT NESHA Last Infusion: 06/10/23 13:38 Dose: 200 mls/hr Documented By: MANDY(2) Admin: 06/10/23 09:21 Dose: 200 mls/hr Documented By: MANDY Piperacillin Sod/Tazobactam (Sod 4.5 gm/ Sodium Chloride) 100 mls @ 25 mls/hr IV Q8H [facility] Last Infusion: 06/10/23 13:38 Dose: 25 mls/hr Documented By: MANDY(2) Infusion: 06/10/23 11:15 Dose: 25 mls/hr Documented By: Infusion: 06/10/23 10:48 Dose: 0 mls/hr Documented By: Admin: 06/10/23 09:21 Dose: 25 mls/hr Documented By: MANDY Ondansetron HCl (Ondansetron 4 Mg/2 Ml Inj) 4 mg IV NOW ONE Stop: 06/10/23 06:08 Last Admin: 06/10/23 07:17 Dose: Not Given Documented By: VIRGEN Vital Signs Vital signs: Vital Signs - 8 hr 06/10/23 10:25 06/10/23 10:25 06/10/23 10:30 Pulse Rate 43 L 42 L Respiratory Rate 21 18 Blood Pressure 104/56 L Pulse Oximetry 100 100 Oxygen Delivery Method 06/10/23 10:30 06/10/23 10:35 06/10/23 10:35 Pulse Rate 44 L Respiratory Rate 21 Blood Pressure 112/58 L 111/58 L Pulse Oximetry 100 Oxygen Delivery Method 06/10/23 10:40 06/10/23 10:40 06/10/23 10:45 Pulse Rate 43 L 51 L Respiratory Rate 21 23 Blood Pressure 104/55 L Pulse Oximetry 100 100 Oxygen Delivery Method 06/10/23 10:45 06/10/23 10:50 06/10/23 10:53 Pulse Rate 62 43 L Respiratory Rate 20 21 Blood Pressure 90/48 L Pulse Oximetry 98 100 Oxygen Delivery Method 06/10/23 10:53 06/10/23 10:55 06/10/23 10:55 Pulse Rate 49 L Respiratory Rate 20 Blood Pressure 104/58 L 100/56 L Pulse Oximetry 97 Oxygen Delivery Method 06/10/23 11:00 06/10/23 11:00 06/10/23 11:05 Pulse Rate 45 L 44 L Respiratory Rate 12 17 Blood Pressure 117/57 L Pulse Oximetry 100 100 Oxygen Delivery Method 06/10/23 11:05 06/10/23 11:10 06/10/23 11:10 Pulse Rate 45 L Respiratory Rate 20 Blood Pressure 109/55 L 107/54 L Pulse Oximetry 100 Oxygen Delivery Method 06/10/23 11:15 06/10/23 11:15 06/10/23 11:20 Pulse Rate 46 L 45 L Respiratory Rate 12 19 Blood Pressure 109/57 L Pulse Oximetry 100 98 Oxygen Delivery Method 06/10/23 11:20 06/10/23 11:25 06/10/23 11:25 Pulse Rate 47 L Respiratory Rate 11 L Blood Pressure 107/57 L 103/54 L Pulse Oximetry 99 Oxygen Delivery Method 06/10/23 11:30 06/10/23 11:30 06/10/23 11:35 Pulse Rate 46 L 50 L Respiratory Rate 16 12 Blood Pressure 106/56 L Pulse Oximetry 99 100 Oxygen Delivery Method Room Air 06/10/23 11:35 06/10/23 11:41 06/10/23 11:41 Pulse Rate 46 L Respiratory Rate 32 H Blood Pressure 104/55 L 117/62 Pulse Oximetry 100 Oxygen Delivery Method 06/10/23 11:45 06/10/23 11:45 06/10/23 11:50 Pulse Rate 46 L Respiratory Rate 24 Blood Pressure 123/60 120/58 L Pulse Oximetry 100 Oxygen Delivery Method 06/10/23 11:50 06/10/23 11:55 06/10/23 11:55 Pulse Rate 44 L 44 L Respiratory Rate 15 23 Blood Pressure 112/55 L Pulse Oximetry 99 99 Oxygen Delivery Method Room Air 06/10/23 12:00 06/10/23 12:00 06/10/23 12:05 Pulse Rate 44 L Respiratory Rate 20 Blood Pressure 110/56 L 130/58 L Pulse Oximetry 100 Oxygen Delivery Method 06/10/23 12:05 06/10/23 12:10 06/10/23 12:10 Pulse Rate 44 L 50 L Respiratory Rate 21 20 Blood Pressure 104/50 L Pulse Oximetry 100 100 Oxygen Delivery Method 06/10/23 12:15 06/10/23 12:16 06/10/23 12:16 Pulse Rate 43 L 43 L Respiratory Rate 16 17 Blood Pressure 118/57 L Pulse Oximetry 98 100 Oxygen Delivery Method 06/10/23 12:21 06/10/23 12:21 06/10/23 12:25 Pulse Rate 42 L 43 L Respiratory Rate 24 21 Blood Pressure 119/60 Pulse Oximetry 99 100 Oxygen Delivery Method 06/10/23 12:25 06/10/23 12:30 06/10/23 12:30 Pulse Rate 47 L Respiratory Rate 18 Blood Pressure 123/60 118/58 L Pulse Oximetry 100 Oxygen Delivery Method 06/10/23 12:35 06/10/23 12:35 06/10/23 12:40 Pulse Rate 57 L 43 L Respiratory Rate 27 H Blood Pressure 107/64 Pulse Oximetry 99 100 Oxygen Delivery Method 06/10/23 12:40 06/10/23 12:45 06/10/23 12:45 Pulse Rate 43 L Respiratory Rate 16 Blood Pressure 111/63 113/60 Pulse Oximetry 100 Oxygen Delivery Method 06/10/23 12:55 06/10/23 12:55 06/10/23 13:00 Pulse Rate 49 L 43 L Respiratory Rate 14 10 L Blood Pressure 132/60 Pulse Oximetry 100 98 Oxygen Delivery Method 06/10/23 13:00 06/10/23 13:05 06/10/23 13:05 Pulse Rate 45 L Respiratory Rate 18 Blood Pressure 128/59 L 116/59 L Pulse Oximetry 100 Oxygen Delivery Method 06/10/23 13:11 06/10/23 13:11 06/10/23 13:15 Pulse Rate 46 L Respiratory Rate 7 L Blood Pressure 131/63 125/58 L Pulse Oximetry 99 Oxygen Delivery Method 06/10/23 13:15 06/10/23 13:21 06/10/23 13:21 Pulse Rate 44 L 44 L Respiratory Rate 12 16 Blood Pressure 142/62 H Pulse Oximetry 100 100 Oxygen Delivery Method 06/10/23 13:26 06/10/23 13:26 06/10/23 13:30 Pulse Rate 50 L 45 L Respiratory Rate 19 Blood Pressure 124/82 Pulse Oximetry 96 100 Oxygen Delivery Method 06/10/23 13:30 Pulse Rate Respiratory Rate Blood Pressure 122/60 Pulse Oximetry Oxygen Delivery Method MDM - Abdominal Pain <Ioana Poe, DO - Last Filed: 06/17/23 07:08> Lab Data 06/10/23 06:05 06/10/23 06:05 Labs: Lab Results 06/10/23 Range/Units 06:05 WBC 14.8 H (4.5-11.0) X10^3/uL RBC 5.47 (4.5-5.9) X10^6/uL Hgb 16.0 (13.5-17.5) g/dL Hct 48.0 (41-53) % MCV 87.8 (80-100) fL MCH 29.4 (26-34) PG MCHC 33.4 (30-36) % RDW 13.6 (11.6-14.8) % Plt Count 160 (150-400) X10^3/uL Neut % (Auto) 78.3 H (50-75) % Lymph % (Auto) 11.3 L (25-40) % Aiken % (Auto) 10.0 (3-14) % Eos % (Auto) 0.2 L (2-4) % Baso % (Auto) 0.2 (0-2) % Neut # (Auto) 66797 H (9297-4670) /uL Lymph # (Auto) 1700 (3435-0596) /uL Aiken # (Auto) 1500 H (0-900) /uL Eos # (Auto) 0 (0-450) /uL Baso # (Auto) 0 (0-100) /uL PT 13.0 H (9.4-12.5) SECONDS INR 1.1 (0.9-1.3) APTT 30 (25.1-36.5) SECONDS Sodium 134 L (137-145) mmol/L Potassium 4.4 (3.4-5.1) mmol/L Chloride 99 (98-107) mmol/L Carbon Dioxide 27 (22-32) mmol/L BUN 24 H (9-20) mg/dL Creatinine 1.21 (0.66-1.25) mg/dL Estimated GFR > 60 (>60) mL/min BUN/Creatinine Ratio 19.8 (6-22) Glucose 140 H (80-110) mg/dL Lactate 1.6 (0.7-2.1) mmol/L Calcium 9.5 (8.4-10.2) mg/dL Total Bilirubin 4.2 H (0.2-1.3) mg/dL AST 557 H (17-59) IU/L ALT 465 H (<50) IU/L Alkaline Phosphatase 125 (38-126) U/L Total Creatine Kinase 68 (55-170) U/L Troponin I < 0.012 (0.01-0.034) ng/mL NT-Pro-B Natriuret Pep 324 H (<125) pg/mL Total Protein 7.5 (6.3-8.2) g/dL Albumin 4.2 (3.5-5.0) g/dL Globulin 3.3 (1.7-4.1) g/dL Albumin/Globulin Ratio 1.3 (1.0-2.8) Lipase 08058 H (23-300) U/L Procalcitonin 0.32 (<0.5) ng/mL ECG Data Interpretation: Normal sinus rhythm rate 48 AZ interval 146 QRS [address] changes no T- wave inversions [facility] Narrative Medical decision making narrative: Patient is 67-year-old male presenting today with some right upper quadrant pain. However he is quite hypotensive blood pressure he says it is normally 116 however is 80 over. Awake alert oriented not tachycardic although he took his metoprolol and lisinopril this morning. Some mild epigastric pain on exam negative Ware sign. With large scar over sternum into abdomen hypotension and right upper quadrant pain patient went for a quickly to CT. He does not have any pulsatile masses on exam he is able to review his old blood pressures his last 1 was 106/60. Patient is persistently hypotensive. Minimal response with IV fluids. Levophed is started. Signed out to Dr. Banda <Alexandra Banda, DO - Last Filed: 06/10/23 18:24> Lab Data Labs: Lab Results 06/10/23 Range/Units 06:05 WBC 14.8 H (4.5-11.0) X10^3/uL RBC 5.47 (4.5-5.9) X10^6/uL Hgb 16.0 (13.5-17.5) g/dL Hct 48.0 (41-53) % MCV 87.8 (80-100) fL MCH 29.4 (26-34) PG MCHC 33.4 (30-36) % RDW 13.6 (11.6-14.8) % Plt Count 160 (150-400) X10^3/uL Neut % (Auto) 78.3 H (50-75) % Lymph % (Auto) 11.3 L (25-40) % Aiken % (Auto) 10.0 (3-14) % Eos % (Auto) 0.2 L (2-4) % Baso % (Auto) 0.2 (0-2) % Neut # (Auto) 22105 H (9762-1811) /uL Lymph # (Auto) 1700 (4992-0073) /uL Aiken # (Auto) 1500 H (0-900) /uL Eos # (Auto) 0 (0-450) /uL Baso # (Auto) 0 (0-100) /uL PT 13.0 H (9.4-12.5) SECONDS INR 1.1 (0.9-1.3) APTT 30 (25.1-36.5) SECONDS Sodium 134 L (137-145) mmol/L Potassium 4.4 (3.4-5.1) mmol/L Chloride 99 (98-107) mmol/L Carbon Dioxide 27 (22-32) mmol/L BUN 24 H (9-20) mg/dL Creatinine 1.21 (0.66-1.25) mg/dL Estimated GFR > 60 (>60) mL/min BUN/Creatinine Ratio 19.8 (6-22) Glucose 140 H (80-110) mg/dL Lactate 1.6 (0.7-2.1) mmol/L Calcium 9.5 (8.4-10.2) mg/dL Total Bilirubin 4.2 H (0.2-1.3) mg/dL AST 557 H (17-59) IU/L ALT 465 H (<50) IU/L Alkaline Phosphatase 125 (38-126) U/L Total Creatine Kinase 68 (55-170) U/L Troponin I < 0.012 (0.01-0.034) ng/mL NT-Pro-B Natriuret Pep 324 H (<125) pg/mL Total Protein 7.5 (6.3-8.2) g/dL Albumin 4.2 (3.5-5.0) g/dL Globulin 3.3 (1.7-4.1) g/dL Albumin/Globulin Ratio 1.3 (1.0-2.8) Lipase 67301 H (23-300) U/L Procalcitonin 0.32 (<0.5) ng/mL Imaging Data MRI abd w/w/o contrast October 2022: Radiologist's Impression: Lincoln Lawson??67??M??1955 ? Allergy/Adv: codeine Close Chest/Abdomen/Pelvis CTA 06/10/23 Abdomen Ultrasound (Signed) Ruddy Bates - 10/28/22 Abdomen/Pelvis CT (Signed) Carlos Bustillo - 10/28/22 Abdomen MRI (Signed) Thierno Dutta - 08/02/22 Abdomen/Pelvis CT (Signed) Freddy Carlos - 08/01/22 Abdomen Ultrasound (Signed) Freddy Carlos - 08/01/22 Abdomen Ultrasound (Signed) Pelon Welch - 06/27/22 Abdomen Ultrasound (Signed) Ruddy Bates - 07/18/21 Chest X-Ray (Signed) Arthur Moreno - 03/26/20 Abdomen Ultrasound (Signed) Judy Morenoe - 03/26/20 Chest X-Ray (Signed) Tiffanie,Arthur - 05/15/19 Abdomen Ultrasound (Signed) Rich Morenosse - 05/15/19 Telemetry Strips 06/08/18 Abdomen Ultrasound (Signed) Ayo Shafer - 06/08/18 Chest X-Ray (Signed) Arthur Moreno - 06/08/[address] [place] [address] Magnetic Resonance Report Signed Patient: Lincoln Lawson MR#: [id number] : 1955 Acct:[id number] Age/Sex: 66 / M Date of Service: 08/02/22 Loc: 90B-1 Accession Number: [id number] Procedure: MR abdomen wo/w con Ordering Provider: Liudmila Mendez [facility] PROCEDURE: MR ABDOMEN WO/W CON INDICATIONS: recurrent acute pancreatitis TECHNIQUE: Coronal HASTE, axial 2D FLASH in- and lab-lv-lwswf; axial breath-hold T2 FSE with fat saturation from the hepatic dome to the iliac crests. Oblique coronal thin- slice and radial thick slab HASTE through the biliary system. Dynamic axial VIBE during administration of contrast. Post-contrast coronal VIBE or 2D FLASH with fat saturation from the hepatic dome to the iliac crests. Optional diffusion weighted imaging and ADC may be performed. COMPARISON: None. FINDINGS: Image quality: Excellent. Pancreas and biliary system: Trace fat stranding at the tail of the pancreas, with homogeneous enhancement parent a no pancreatic ductal dilation. Cholelithiasis. Common bile duct measures 5 mm, without stones. Cholelithiasis without wall thickening or pericholecystic fat stranding to suggest acute cholecystitis. Solid organs: Liver is normal in size and enhancement. Spleen is normal in size and enhancement. T2 intermediate, T1 intermediate cystic lesion with a thick wall in the central body of the spleen . No adrenal nodules. Kidneys are normal in size and enhancement, without hydronephrosis. Nodes and vessels: No retroperitoneal or mesenteric adenopathy by size criteria. Aorta and inferior vena cava are normal in size. Bowel and peritoneum: Unenhanced bowel loops are normal in caliber throughout. No free fluid. Lung bases: 7-8 mm solid nodule in the left lung base . Bones and soft tissues: Wide-mouth ventral wall hernia containing fat. Bone marrow is normal in overall signal. IMPRESSION: 1. Acute interstitial pancreatitis without acute peripancreatic collection. 2. Cholelithiasis without evidence of acute cholecystitis or choledocholithiasis. 3. Cystic mass with T2/T1 intermediate signal within the spleen, probably a (chronic) pseudocyst. 4. 7-8 mm solid nodule in the left lung base. Recommend CT in 6-12 months, per Fleischner Society guidelines. Dictated by: Thierno Dutta M.D. on 08/02/2022 at 8:53 Approved by: Thierno Dutta M.D. on 08/02/2022 at 9:00 US - abdomen: Radiologist's Impression: [address] [address] Ultrasound Report Signed Patient: Lincoln Lawson MR#: [id number] : 1955 Acct:[id number] Age/Sex: 67 / M Date of Service: 06/10/23 Loc: ED Accession Number: [id number] Procedure: US abdomen limited Ordering Provider: Ioana Poe D.O. PROCEDURE: US ABDOMEN LIMITED INDICATIONS: ruq elevated bili TECHNIQUE: Real-time focused scanning was performed of the abdomen, with image documentation. COMPARISON: [facility], [place], US ABDOMEN LIMITED, 10/28/2022, 11:24. [facility], CT, CT ANGIO CHEST ABDOMEN PELVIS, 06/10/2023, 6:20. FINDINGS: Liver measures 15.9 cm. Portions of the left lower and right lower lobes are not well seen secondary to overlying bowel gas. Gallbladder demonstrates non mobile foci of increased echogenicity at the gallbladder neck. Wall thickness measures is variable ranging from 2.7 mm to 4.5 mm. No pericholecystic fluid. Common bile duct is not well seen. IMPRESSION: Non mobile foci within the gallbladder suggestive of stones/sludge. Gallbladder wall is variable in thickness as above. Hepatic disease can affect gallbladder wall thickening. In addition, developing cholecystitis cannot be definitively excluded and recommend clinical correlation to patient's symptoms. Dictated by: Anny Jarrell M.D. on 06/10/2023 at 8:14 Approved by: Anny Jarrell M.D. on 06/10/2023 at 8:18 MDM Narrative Medical decision making narrative: Patient is 67-year-old male presenting today with some right upper quadrant pain. However he is quite hypotensive blood pressure he says it is normally 116 however is 80 over. Awake alert oriented not tachycardic although he took his metoprolol and lisinopril this morning. Some mild epigastric pain on exam negative Ware sign. With large scar over sternum into abdomen hypotension and right upper quadrant pain patient went for a quickly to CT. He does not have any pulsatile masses on exam he is able to review his old blood pressures his last 1 was 106/60. Patient is persistently hypotensive. Minimal response with IV fluids. Levophed is started. Signed out to Dr. Banda 06/10/23 [place]: Patient signed out to myself. Patient notes he developed right upper quadrant pain, was hypotensive your upon arrival was dizzy this morning. He does note that his pulse tends to run low but not a normal blood pressure. Patient's workup shows a white count of 14, creatinine of 1.21 fairly close to baseline normal electrolytes glucose of 140 bilirubin is 4.2 was 1.4 in October, AST ALT alk phos are all elevated, lipase is 37,000. Patient's procalcitonin is 0.32 and lactate 1.6. Patient did have a troponin negative. Patient CT angio was ordered to rule out aneurysm or dissection. None as appreciated on preliminary review by Dr. Poe or myself but no reports are available yet. Patient has also had ultrasound. 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 Patient is in process of receiving 30 cc/kilos bolus, pressure has improved to the 107 range but was started on Levophed. We will continue with fluids patient has received Zosyn, Tylenol and Zofran. Patient states pain is fairly controlled at this time. PICC line was ordered. Still awaiting imaging results for CTAngio and abdominal US. Spoke with Dr. Gupta, general surgery: Suspect more gallstone pancreatitis did review patient's prior MR abdomen report, preliminary changes by master automotive glass technician and findings today. He is suspect patient does need ERCP asked for call back if gastroenterology gives push back or disagrees. We will contact Gastroenterology. CT angio [place] read no pulmonary emboli, no aortic aneurysm or dissection bilateral pulmonary nodules measuring 7 mm left lower lobe. Suggest follow up CT in 6 months. Findings suspicious for mild acute pancreatitis, distended gallbladder with gallstones. abd US: Gallbladder demonstrates nonmobile foci increased echogenicity in the gallbladder neck wall thickness measures 2.7-4.5 mm no pericholecystic fluid, common bile duct is not well seen. Report notes hepatic disease can affect gallbladder wall thickening. Spoke with Dr. Nitin IRIZARRY at [facility]: Is happy to see patient for ERCP agrees with plan to continue with Zosyn. Patient has been tolerating nor epi, seems to do best at 4 mics, if dropped a low drops pressure again. Had PICC line placed to lumen here in the department. Tolerated that well. Spoke with Gastroenterology Steff santiago feels patient may actually need cholecystectomy but is happy to see patient and follow with ERCP as needed. Spoke with Dr. Recinos, sifter operator at [facility] she accepts for transfer. Would like us to push MR abdomen and pelvis and ultrasound images as well. Patient accepted to transfer to ED with bed assignment upon arrival to the ICU. Critical Care Time <Alexandra Banda, - Last Filed: 06/10/23 18:24> Critical Care Time Critical Care Time: Yes Total Critical Care Time: 45 Attestation: The high probability of a clinically significant, sudden or life threatening deterioration of the [gi, cardiac] system(s) required my full and direct attention, intervention and personal management. The aggregate critical care time was [] minutes. This time is in addition to time spent performing reported procedures but includes the following: [x] Data Review and interpretation [x] Patient assessment and monitoring of vital signs [x] Documentation [x] Medication orders and management Discharge Plan Departure Patient Disposition: [facility] Clinical Impression: Acute gallstone pancreatitis, Sepsis, Hypotension Prescriptions: No Action aspirin 81 MG tablet,delayed release (DR/EC) 81 mg PO QAM Qty: 0 atorvastatin 80 MG tablet 80 mg PO BEDTIME Qty: 0 lisinopril 40 mg tablet 40 mg PO BEDTIME cholecalciferol (vitamin D3) 1,000 unit tablet 1,000 unit PO QAM metoprolol succinate 100 mg tablet extended release 24 hr 100 mg PO QAM Referrals: Shelia Mathew MD [Primary Care Provider] -
--- NOTE | 2023-06-10 06:06 | DI.CT.S_ITS ---
PROCEDURE: CT ANGIO CHEST ABDOMEN PELVIS INDICATIONS: hypotension, ruq pain, hx cabg, cad TECHNIQUE: Precontrast 5 mm thick sections acquired from the lung apices to the iliac crests. After the administration of intravenous contrast, 2.5 mm thick sections again acquired from the lung apices to the iliac crests. Maximum intensity projection (MIP) oblique sagittal and coronal reformats were then acquired. For radiation dose reduction, the following was used: automated exposure control. COMPARISON: Located Within [facility], CT, CT ABDOMEN PELVIS W CON, 08/02/2022, 0:16. Located Within [facility], CT, CT ABDOMEN PELVIS W CON, 10/28/2022, 8:40. FINDINGS: Image quality: Diagnostic. AORTA: No aortic aneurysm. No acute aortic syndrome. Scattered atheromatous calcifications are noted. There is a moderate stenosis at the origin of the celiac axis. The SMA, renal arteries and YOJANA are widely patent. CHEST: Lower Neck: No enlarged lymph nodes. Thyroid: No thyroid nodules which require sonographic evaluation. Axillae: No enlarged lymph nodes. Chest Wall: Unremarkable. Lungs and Pleura: No pneumothorax or pleural effusions. There is mild atelectasis at the bilateral lung bases. There is a 7 mm pulmonary nodule within the superior segment of the right lower lobe (series 5/image 106). There is a stable 7 mm pulmonary nodule at the left lung base unchanged from August 02, 2022. A 5 mm inter fissural nodule is present within the right oblique fissure (series 5/image 146). This is not visualized on prior comparison studies. 3 and 4 mm pulmonary nodules are also present at the lung bases. Heart: Heart size is normal. No pericardial effusion. Thoracic Vessels: Pulmonary arteries demonstrate normal size. Thoracic aorta Friday Mediastinum and Stephanie: No enlarged lymph nodes. Esophagus: No wall thickening. No hiatal hernia. ABDOMEN: Liver: No solid mass. Gallbladder: Multiple gallstones are layered in the gallbladder fundus. No gallbladder wall thickening or pericholecystic fluid. The gallbladder is mildly dilated. Biliary ducts: No biliary dilation. Pancreas: The pancreas demonstrates normal size and enhancement. There is mild peripancreatic fat stranding noted. No ductal dilatation. Spleen: There is a high density cyst within the upper pole of the spleen with rim calcification. This is unchanged when compared with CT dated October 28, 2022. Adrenal Glands: No adrenal nodules. Kidneys and Ureters: No hydronephrosis. No solid mass. No complex renal cystic lesion which requires follow up. Stomach and Bowel: Normal colonic caliber, without significant wall thickening. The appendix is thin walled and gas filled. Peritoneum: No abnormal intraperitoneal fluid. No free air. Ventral Wall: No hernia. Abdominal Nodes: No retroperitoneal or mesenteric adenopathy by size criteria. Vessels: Inferior vena cava is normal in size. PELVIS: Pelvic Organs: Unremarkable. Bladder: Unremarkable. Pelvic Nodes: No enlarged lymph nodes. Miscellaneous: No inguinal hernias are seen. Bones: Unremarkable. IMPRESSION: 1. Normal course and caliber of the aorta. No dissection or aneurysmal dilatation. 2. No acute pulmonary embolus. 3. Pulmonary nodules measuring up to 7 mm in diameter. Please see follow-up guidelines below. Follow-up in 6-12 months recommended. 4. Mild peripancreatic fat stranding which may be associated with acute pancreatitis. No findings for to suggest pancreatic necrosis or ductal obstruction. 5. Cholelithiasis. No findings to suggest choledocholithiasis or acute cholecystitis. However, in the setting of peripancreatic fat stranding, gallstone pancreatitis should be considered in the differential. Fleischner Society criteria for SOLID lung nodule followup. Nodule size (mm)Low-risk patientHigh-risk patient<6 (single or multiple)No routine followup.Optional CT at 12 months. 6-8 (single or multiple)CT at 6-12 months, then optional CT at 18-24 mo.CT at 6-12 months, then CT at 18-24 months. >8 (single)CT at 3 months, PET-CT, or biopsy. Same as for low-risk pts. >8 (multiple)CT at 3-6 months, then optional CT at 18-24 mo.CT at 3-6 months, then CT at 18-24 months. Fleischner Society criteria for SUB-SOLID lung nodule followup. Solitary pure ground-glass nodules<6 mm (ground glass or part solid)No followup needed. 6 mm or larger (ground glass)CT at 6-12 months to confirm persistence, then CT every 2 years until 5 years.6 mm or larger (part solid)CT at 3-6 months to confirm persistence, then annual CT until 5 years if unchanged and solid component remains <6 mm. Multiple sub-solid nodules<6 mmCT at 3-6 months, then CT consider at 2 & 4 years for high risk patients. [address] at 3-6 months. Subsequent management based on most suspicious lesions. Recommendations do not apply to lung cancer screening, patients with immunosuppression, or patients with known primary cancer. These findings are concordant with the overnight interpretation. Dictated by: Bonnie Mendoza M.D. on 06/10/2023 at 8:37 Approved by: Bonnie Mendoza M.D. on 06/10/2023 at 8:59
[2023-06-10 06:18] LABS: Add Manual Diff / Slide Review NO; Basophils Absolute Auto 0 /uL (0-100); Basophils Percent Auto 0.2 % (0-2); Eosinophils Absolute Auto 0 /uL (0-450); Eosinophils Percent Auto 0.2 % (2-4); Lymphocytes Absolute Auto 1700 /uL (1100-4500); Lymphocytes Percent Auto 11.3 % (25-40); Mean Corpuscular HGB Conc 33.4 % (30-36); Mean Corpuscular Hemoglobin 29.4 PG (26-34); Mean Corpuscular Volume 87.8 fL (80-100); Monocytes Absolute Auto 1500 /uL (0-900); Neutrophils Absolute Auto 11600 /uL (1500-7000); Neutrophils Percent Auto 78.3 % (50-75); Platelet Count 160 X10^3/uL (150-400); Red Blood Cell Count 5.47 X10^6/uL (4.5-5.9); Red Cell Distribution Width 13.6 % (11.6-14.8); White Blood Cell Count 14.8 X10^3/uL (4.5-11.0)
[2023-06-10] MEDS: SODIUM CHLORIDE 0.9% 1,000 ML 1000 ML IV ×2 (06:19→06:52)
[2023-06-10 06:24] LABS: INR 1.1 (0.9-1.3)
[2023-06-10 06:27] LABS: PTT Partial Thromboplastin Tim 30 SECONDS (25.1-36.5)
[2023-06-10 06:30] LABS: Lactate (Lactic Acid) 1.6 mmol/L (0.7-2.1)
[2023-06-10 06:31] LABS: Alanine Aminotransferase 465 IU/L (<50); Albumin 4.2 g/dL (3.5-5.0); Albumin Globulin Ratio 1.3 (1.0-2.8); Alkaline Phosphatase 125 U/L (38-126); Aspartate Aminotransferase 557 IU/L (17-59); BUN Creatinine Ratio 19.8 (6-22); Bilirubin Total 4.2 mg/dL (0.2-1.3); Blood Urea Nitrogen 24 mg/dL (9-20); Calcium 9.5 mg/dL (8.4-10.2); Carbon Dioxide 27 mmol/L (22-32); Chloride 99 mmol/L (98-107); Creatine Kinase 68 U/L (55-170); Estimated Glomerular Filt Rate > 60 mL/min (>60); Globulin 3.3 g/dL (1.7-4.1); Glucose 140 mg/dL (80-110); Potassium 4.4 mmol/L (3.4-5.1); Sodium 134 mmol/L (137-145); Total Protein 7.5 g/dL (6.3-8.2)
[2023-06-10 06:42] LABS: NT-proBNP (BNP-Adult 18+) 324 pg/mL (<125); Troponin I < 0.012 ng/mL (0.01-0.034)
[2023-06-10 06:48] LABS: Procalcitonin 0.32 ng/mL (<0.5)
[2023-06-10] MEDS: NOREPINEPHRINE BITARTRATE/D5W 4 MG/250 ML PLAST..BAG 30.618 MG IV (06:51)
--- NOTE | 2023-06-10 06:58 | DI.US.S_ITS ---
PROCEDURE: US ABDOMEN LIMITED INDICATIONS: ruq elevated bili TECHNIQUE: Real-time focused scanning was performed of the abdomen, with image documentation. COMPARISON: [facility], US, US ABDOMEN LIMITED, 10/28/2022, 11:24. [facility], CT, CT ANGIO CHEST ABDOMEN PELVIS, 06/10/2023, 6:20. FINDINGS: Liver measures 15.9 cm. Portions of the left lower and right lower lobes are not well seen secondary to overlying bowel gas. Gallbladder demonstrates non mobile foci of increased echogenicity at the gallbladder neck. Wall thickness measures is variable ranging from 2.7 mm to 4.5 mm. No pericholecystic fluid. Common bile duct is not well seen. IMPRESSION: Non mobile foci within the gallbladder suggestive of stones/sludge. Gallbladder wall is variable in thickness as above. Hepatic disease can affect gallbladder wall thickening. In addition, developing cholecystitis cannot be definitively excluded and recommend clinical correlation to patient's symptoms. Dictated by: Anny Jarrell M.D. on 06/10/2023 at 8:14 Approved by: Anny Jarrell M.D. on 06/10/2023 at 8:18
[2023-06-10] MEDS: ACETAMINOPHEN IV 1,000 MG/100 ML VIAL 400 MG IV (07:01)
[2023-06-10] MEDS: PIPERACILLIN/TAZO 4.5 GM in SODIUM CHLORIDE 0.9% 100 ML IV ×2 (07:02→09:21)
[2023-06-10] MEDS: SODIUM CHLORIDE 0.9% 2,449.41 ML 816.47 ML IV (07:16)
[2023-06-10 07:36] LABS: HEMOLYSIS 102 (0-50)
[2023-06-10 07:37] LABS: Lipase 37587 U/L (23-300)
[2023-06-10] MEDS: SODIUM CHLORIDE 0.9% 1,000 ML 200 ML IV (09:21)
--- NOTE | 2023-06-10 11:20 | DI.RAD.S_ITS ---
PROCEDURE: XR CHEST FOR PICC 1V INDICATIONS: line placement COMPARISON: [facility], , XR CHEST 1V, 03/26/2020, 8:15. FINDINGS: PICC was placed by the intravenous therapy team from the left side. Fluoroscopic spot film demonstrates the tip of PICC projecting to the area of the lower SVC. IMPRESSION: Tip of PICC projects to the area of the lower SVC. Dictated by: Juan Carlos Maravilla M.D. on 06/10/2023 at 11:43 Approved by: Juan Carlos Maravilla M.D. on 06/10/2023 at 11:43
--- NOTE | 2023-06-10 13:52 | PC.NURSE ---
Report given to transfer center [facility].
== END 2023-06-10 13:40 | disposition short-term general hospital (02) ==
PROVIDERS: Emergency Medicine; Emergency Provider Emergency Medicine; PCP Family Medicine
DX: K85.10 Biliary acute pancreatitis without necrosis or infection (principal); A41.9 Sepsis, unspecified organism; I95.9 Hypotension, unspecified; R07.9 Chest pain, unspecified; Z79.899 Other long term (current) drug therapy
CPT/HCPCS: 36415; 36569; 71275; 74174; 76705; 80053; 82550; 83605; 83690; 83880; 84145; 84484; 85025; 85610; 85730; 87040; 93005; 93010; 96365; 96366; 96367; 96368; 96375; 99285; 99291; J0136; J2543; Q9967